=== PATIENT | male | born 1945 | race Caucasian/White ===

== ENCOUNTER 2020-04-09 13:26 | Outpatient (RCR) | payer OTHER, SELFPAY ==
[2020-04-16 12:36] LABS: Glucose, Whole Blood 291 mg/dL (60-115)
[2020-04-16 16:12] LABS: Glucose, Whole Blood 118 mg/dL (60-115)
[2020-04-16 20:29] LABS: Glucose, Whole Blood 225 mg/dL (60-115)
[2020-04-17 07:01] LABS: Glucose, Whole Blood 245 mg/dL (60-115)
[2020-04-17 11:17] LABS: Glucose, Whole Blood 234 mg/dL (60-115)
[2020-04-17 16:08] LABS: Glucose, Whole Blood 218 mg/dL (60-115)
[2020-04-17 20:22] LABS: Glucose, Whole Blood 187 mg/dL (60-115)
[2020-04-18 07:41] LABS: Glucose, Whole Blood 149 mg/dL (60-115)
[2020-04-18 11:34] LABS: Glucose, Whole Blood 207 mg/dL (60-115)
[2020-04-18 17:11] LABS: Glucose, Whole Blood 191 mg/dL (60-115)
[2020-04-18 20:29] LABS: Glucose, Whole Blood 207 mg/dL (60-115)
[2020-04-19 07:36] LABS: Glucose, Whole Blood 48 mg/dL (60-115)
[2020-04-19 11:11] LABS: Glucose, Whole Blood 340 mg/dL (60-115)
[2020-04-19 16:16] LABS: Glucose, Whole Blood 208 mg/dL (60-115)
[2020-04-20 07:19] LABS: Glucose, Whole Blood 152 mg/dL (60-115)
[2020-04-20 11:25] LABS: Glucose, Whole Blood 309 mg/dL (60-115)
[2020-04-20 16:06] LABS: Glucose, Whole Blood 230 mg/dL (60-115)
[2020-04-20 20:10] LABS: Glucose, Whole Blood 238 mg/dL (60-115)
[2020-04-21 07:23] LABS: Glucose, Whole Blood 205 mg/dL (60-115)
[2020-04-21 11:20] LABS: Glucose, Whole Blood 308 mg/dL (60-115)
[2020-04-21 16:08] LABS: Glucose, Whole Blood 316 mg/dL (60-115)
[2020-04-22 07:28] LABS: Glucose, Whole Blood 65 mg/dL (60-115)
[2020-04-22 11:17] LABS: Glucose, Whole Blood 249 mg/dL (60-115)
[2020-04-22 16:07] LABS: Glucose, Whole Blood 202 mg/dL (60-115)
[2020-04-22 20:18] LABS: Glucose, Whole Blood 152 mg/dL (60-115)
[2020-04-23 07:17] LABS: Glucose, Whole Blood 152 mg/dL (60-115)
[2020-04-23 11:23] LABS: Glucose, Whole Blood 295 mg/dL (60-115)
[2020-04-23 16:23] LABS: Glucose, Whole Blood 218 mg/dL (60-115)
[2020-04-23 19:51] LABS: Glucose, Whole Blood 227 mg/dL (60-115)
[2020-04-24 07:43] LABS: Glucose, Whole Blood 107 mg/dL (60-115)
[2020-04-24 11:30] LABS: Glucose, Whole Blood 285 mg/dL (60-115)
[2020-04-24 16:11] LABS: Glucose, Whole Blood 258 mg/dL (60-115)
[2020-04-25 07:20] LABS: Glucose, Whole Blood 171 mg/dL (60-115)
[2020-04-25 11:18] LABS: Glucose, Whole Blood 291 mg/dL (60-115)
[2020-04-25 16:24] LABS: Glucose, Whole Blood 155 mg/dL (60-115)
[2020-04-26 07:25] LABS: Glucose, Whole Blood 187 mg/dL (60-115)
[2020-04-26 11:12] LABS: Glucose, Whole Blood 187 mg/dL (60-115)
[2020-04-26 15:57] LABS: Glucose, Whole Blood 209 mg/dL (60-115)
[2020-04-26 21:12] LABS: Glucose, Whole Blood 144 mg/dL (60-115)
[2020-04-27 07:21] LABS: Glucose, Whole Blood 106 mg/dL (60-115)
[2020-04-27 11:14] LABS: Glucose, Whole Blood 288 mg/dL (60-115)
[2020-04-27 15:57] LABS: Glucose, Whole Blood 158 mg/dL (60-115)
[2020-04-27 20:04] LABS: Glucose, Whole Blood 195 mg/dL (60-115)
[2020-04-28 07:26] LABS: Glucose, Whole Blood 157 mg/dL (60-115)
[2020-04-28 11:08] LABS: Glucose, Whole Blood 336 mg/dL (60-115)
[2020-04-28 16:15] LABS: Glucose, Whole Blood 77 mg/dL (60-115)
[2020-04-28 20:42] LABS: Glucose, Whole Blood 145 mg/dL (60-115)
[2020-04-29 07:23] LABS: Glucose, Whole Blood 121 mg/dL (60-115)
[2020-04-29 11:17] LABS: Glucose, Whole Blood 273 mg/dL (60-115)
[2020-04-29 16:15] LABS: Glucose, Whole Blood 105 mg/dL (60-115)
[2020-04-30 07:25] LABS: Glucose, Whole Blood 140 mg/dL (60-115)
[2020-04-30 11:14] LABS: Glucose, Whole Blood 274 mg/dL (60-115)
[2020-04-30 16:04] LABS: Glucose, Whole Blood 128 mg/dL (60-115)
[2020-04-30 20:34] LABS: Glucose, Whole Blood 269 mg/dL (60-115)
[2020-05-01 07:21] LABS: Glucose, Whole Blood 174 mg/dL (60-115)
[2020-05-01 11:00] LABS: Glucose, Whole Blood 298 mg/dL (60-115)
[2020-05-01 16:11] LABS: Glucose, Whole Blood 217 mg/dL (60-115)
[2020-05-01 20:30] LABS: Glucose, Whole Blood 183 mg/dL (60-115)
[2020-05-02 07:26] LABS: Glucose, Whole Blood 75 mg/dL (60-115)
[2020-05-02 11:18] LABS: Glucose, Whole Blood 243 mg/dL (60-115)
[2020-05-02 16:17] LABS: Glucose, Whole Blood 169 mg/dL (60-115)
[2020-05-02 20:32] LABS: Glucose, Whole Blood 257 mg/dL (60-115)
[2020-05-03 07:31] LABS: Glucose, Whole Blood 171 mg/dL (60-115)
[2020-05-03 11:15] LABS: Glucose, Whole Blood 358 mg/dL (60-115)
[2020-05-03 16:11] LABS: Glucose, Whole Blood 256 mg/dL (60-115)
[2020-05-03 20:21] LABS: Glucose, Whole Blood 292 mg/dL (60-115)
[2020-05-04 07:19] LABS: Glucose, Whole Blood 185 mg/dL (60-115)
[2020-05-04 11:02] LABS: Glucose, Whole Blood 193 mg/dL (60-115)
[2020-05-04 16:16] LABS: Glucose, Whole Blood 244 mg/dL (60-115)
[2020-05-04 20:32] LABS: Glucose, Whole Blood 180 mg/dL (60-115)
[2020-05-05 07:20] LABS: Glucose, Whole Blood 86 mg/dL (60-115)
[2020-05-05 11:12] LABS: Glucose, Whole Blood 256 mg/dL (60-115)
[2020-05-05 16:28] LABS: Glucose, Whole Blood 217 mg/dL (60-115)
[2020-05-06 07:27] LABS: Glucose, Whole Blood 67 mg/dL (60-115)
[2020-05-06 11:07] LABS: Glucose, Whole Blood 277 mg/dL (60-115)
[2020-05-06 16:07] LABS: Glucose, Whole Blood 237 mg/dL (60-115)
[2020-05-06 20:14] LABS: Glucose, Whole Blood 248 mg/dL (60-115)
[2020-05-07 07:10] LABS: Glucose, Whole Blood 100 mg/dL (60-115)
[2020-05-07 11:39] LABS: Glucose, Whole Blood 330 mg/dL (60-115)
[2020-05-07 15:26] LABS: Glucose, Whole Blood 189 mg/dL (60-115)
[2020-05-07 17:12] LABS: Glucose, Whole Blood 220 mg/dL (60-115)
[2020-05-07 20:35] LABS: Glucose, Whole Blood 187 mg/dL (60-115)
[2020-05-08 07:29] LABS: Glucose, Whole Blood 99 mg/dL (60-115)
[2020-05-08 11:34] LABS: Glucose, Whole Blood 300 mg/dL (60-115)
[2020-05-08 15:59] LABS: Glucose, Whole Blood 216 mg/dL (60-115)
[2020-05-08 20:54] LABS: Glucose, Whole Blood 188 mg/dL (60-115)
[2020-05-09 02:25] LABS: Glucose, Whole Blood 111 mg/dL (60-115)
[2020-05-09 07:09] LABS: Glucose, Whole Blood 131 mg/dL (60-115)
[2020-05-09 11:14] LABS: Glucose, Whole Blood 316 mg/dL (60-115)
[2020-05-09 16:06] LABS: Glucose, Whole Blood 225 mg/dL (60-115)
[2020-05-10 00:32] LABS: Glucose, Whole Blood 159 mg/dL (60-115)
[2020-05-10 13:50] LABS: Glucose, Whole Blood 227 mg/dL (60-115)
[2020-05-10 16:18] LABS: Glucose, Whole Blood 222 mg/dL (60-115)
[2020-05-11 00:50] LABS: Glucose, Whole Blood 80 mg/dL (60-115)
[2020-05-11 07:03] LABS: Glucose, Whole Blood 121 mg/dL (60-115)
[2020-05-11 11:33] LABS: Glucose, Whole Blood 268 mg/dL (60-115)
[2020-05-11 15:48] LABS: Glucose, Whole Blood 195 mg/dL (60-115)
[2020-05-11 20:50] LABS: Glucose, Whole Blood 172 mg/dL (60-115)
[2020-05-12 07:32] LABS: Glucose, Whole Blood 132 mg/dL (60-115)
[2020-05-12 11:18] LABS: Glucose, Whole Blood 251 mg/dL (60-115)
[2020-05-12 16:26] LABS: Glucose, Whole Blood 207 mg/dL (60-115)
[2020-05-12 20:23] LABS: Glucose, Whole Blood 155 mg/dL (60-115)
[2020-05-13 07:28] LABS: Glucose, Whole Blood 71 mg/dL (60-115)
[2020-05-13 11:12] LABS: Glucose, Whole Blood 255 mg/dL (60-115)
[2020-05-13 16:04] LABS: Glucose, Whole Blood 137 mg/dL (60-115)
[2020-05-13 20:05] LABS: Glucose, Whole Blood 195 mg/dL (60-115)
[2020-05-14 07:14] LABS: Glucose, Whole Blood 80 mg/dL (60-115)
[2020-05-14 11:19] LABS: Glucose, Whole Blood 194 mg/dL (60-115)
[2020-05-14 15:54] LABS: Glucose, Whole Blood 269 mg/dL (60-115)
[2020-05-15 07:26] LABS: Glucose, Whole Blood 165 mg/dL (60-115)
[2020-05-15 10:54] LABS: Glucose, Whole Blood 291 mg/dL (60-115)
[2020-05-15 16:17] LABS: Glucose, Whole Blood 230 mg/dL (60-115)
[2020-05-15 20:36] LABS: Glucose, Whole Blood 193 mg/dL (60-115)
[2020-05-16 00:20] LABS: Glucose, Whole Blood 128 mg/dL (60-115)
[2020-05-16 07:53] LABS: Glucose, Whole Blood 195 mg/dL (60-115)
[2020-05-16 11:18] LABS: Glucose, Whole Blood 255 mg/dL (60-115)
[2020-05-16 16:15] LABS: Glucose, Whole Blood 124 mg/dL (60-115)
[2020-05-16 21:19] LABS: Glucose, Whole Blood 277 mg/dL (60-115)
[2020-05-17 07:38] LABS: Glucose, Whole Blood 79 mg/dL (60-115)
[2020-05-17 11:09] LABS: Glucose, Whole Blood 273 mg/dL (60-115)
[2020-05-17 16:19] LABS: Glucose, Whole Blood 103 mg/dL (60-115)
[2020-05-18 07:30] LABS: Glucose, Whole Blood 82 mg/dL (60-115)
[2020-05-18 09:36] LABS: Glucose, Whole Blood 193 mg/dL (60-115)
[2020-05-18 11:16] LABS: Glucose, Whole Blood 237 mg/dL (60-115)
[2020-05-18 16:14] LABS: Glucose, Whole Blood 230 mg/dL (60-115)
[2020-05-19 08:03] LABS: Glucose, Whole Blood 128 mg/dL (60-115)
[2020-05-19 11:23] LABS: Glucose, Whole Blood 241 mg/dL (60-115)
[2020-05-19 16:03] LABS: Glucose, Whole Blood 181 mg/dL (60-115)
[2020-05-20 08:05] LABS: Glucose, Whole Blood 48 mg/dL (60-115)
[2020-05-20 11:15] LABS: Glucose, Whole Blood 254 mg/dL (60-115)
[2020-05-20 16:17] LABS: Glucose, Whole Blood 228 mg/dL (60-115)
[2020-05-20 20:54] LABS: Glucose, Whole Blood 205 mg/dL (60-115)
[2020-05-21 08:52] LABS: Glucose, Whole Blood 60 mg/dL (60-115)
[2020-05-21 11:17] LABS: Glucose, Whole Blood 283 mg/dL (60-115)
[2020-05-21 15:37] LABS: Glucose, Whole Blood 252 mg/dL (60-115)
[2020-05-21 19:54] LABS: Glucose, Whole Blood 150 mg/dL (60-115)
[2020-05-22 07:29] LABS: Glucose, Whole Blood 72 mg/dL (60-115)
[2020-05-22 11:37] LABS: Glucose, Whole Blood 356 mg/dL (60-115)
[2020-05-22 16:06] LABS: Glucose, Whole Blood 226 mg/dL (60-115)
[2020-05-23 08:11] LABS: Glucose, Whole Blood 95 mg/dL (60-115)
[2020-05-23 11:21] LABS: Glucose, Whole Blood 277 mg/dL (60-115)
[2020-05-23 16:24] LABS: Glucose, Whole Blood 179 mg/dL (60-115)
[2020-05-24 00:21] LABS: Glucose, Whole Blood 127 mg/dL (60-115)
[2020-05-24 07:25] LABS: Glucose, Whole Blood 76 mg/dL (60-115)
[2020-05-24 11:30] LABS: Glucose, Whole Blood 172 mg/dL (60-115)
[2020-05-24 16:05] LABS: Glucose, Whole Blood 258 mg/dL (60-115)
[2020-05-25 07:25] LABS: Glucose, Whole Blood 144 mg/dL (60-115)
[2020-05-25 11:32] LABS: Glucose, Whole Blood 232 mg/dL (60-115)
[2020-05-25 16:19] LABS: Glucose, Whole Blood 93 mg/dL (60-115)
[2020-05-25 23:11] LABS: Glucose, Whole Blood 224 mg/dL (60-115)
[2020-05-26 08:11] LABS: Glucose, Whole Blood 64 mg/dL (60-115)
[2020-05-26 11:17] LABS: Glucose, Whole Blood 244 mg/dL (60-115)
[2020-05-26 16:21] LABS: Glucose, Whole Blood 158 mg/dL (60-115)
[2020-05-26 21:00] LABS: Glucose, Whole Blood 242 mg/dL (60-115)
[2020-05-27 08:13] LABS: Glucose, Whole Blood 85 mg/dL (60-115)
[2020-05-27 11:27] LABS: Glucose, Whole Blood 241 mg/dL (60-115)
[2020-05-27 16:16] LABS: Glucose, Whole Blood 122 mg/dL (60-115)
[2020-05-28 00:05] LABS: Glucose, Whole Blood 164 mg/dL (60-115)
[2020-05-28 07:16] LABS: Glucose, Whole Blood 93 mg/dL (60-115)
[2020-05-28 11:43] LABS: Glucose, Whole Blood 270 mg/dL (60-115)
[2020-05-28 18:57] LABS: Glucose, Whole Blood 243 mg/dL (60-115)
[2020-05-29 07:57] LABS: Glucose, Whole Blood 118 mg/dL (60-115)
[2020-05-29 11:11] LABS: Glucose, Whole Blood 257 mg/dL (60-115)
[2020-05-29 16:41] LABS: Glucose, Whole Blood 172 mg/dL (60-115)
[2020-05-30 07:44] LABS: Glucose, Whole Blood 112 mg/dL (60-115)
[2020-05-30 11:27] LABS: Glucose, Whole Blood 291 mg/dL (60-115)
[2020-05-30 16:43] LABS: Glucose, Whole Blood 128 mg/dL (60-115)
[2020-05-31 07:08] LABS: Glucose, Whole Blood 90 mg/dL (60-115)
[2020-05-31 11:32] LABS: Glucose, Whole Blood 250 mg/dL (60-115)
[2020-05-31 16:08] LABS: Glucose, Whole Blood 82 mg/dL (60-115)
[2020-06-01 08:37] LABS: Glucose, Whole Blood 139 mg/dL (60-115)
[2020-06-01 11:16] LABS: Glucose, Whole Blood 271 mg/dL (60-115)
[2020-06-01 17:30] LABS: Glucose, Whole Blood 167 mg/dL (60-115)
[2020-06-02 07:36] LABS: Glucose, Whole Blood 91 mg/dL (60-115)
[2020-06-02 11:22] LABS: Glucose, Whole Blood 264 mg/dL (60-115)
[2020-06-02 16:02] LABS: Glucose, Whole Blood 191 mg/dL (60-115)
[2020-06-02 20:11] LABS: Glucose, Whole Blood 194 mg/dL (60-115)
[2020-06-02 23:46] LABS: Glucose, Whole Blood 131 mg/dL (60-115)
[2020-06-03 07:04] LABS: Glucose, Whole Blood 58 mg/dL (60-115)
[2020-06-03 11:29] LABS: Glucose, Whole Blood 328 mg/dL (60-115)
[2020-06-03 16:11] LABS: Glucose, Whole Blood 172 mg/dL (60-115)
[2020-06-04 07:42] LABS: Glucose, Whole Blood 93 mg/dL (60-115)
[2020-06-04 11:27] LABS: Glucose, Whole Blood 321 mg/dL (60-115)
[2020-06-04 14:50] LABS: Glucose, Whole Blood 111 mg/dL (60-115)
--- NOTE | 2020-06-04 15:44 | CT_ITS ---
EXAMINATION: CT HEAD WITHOUT CONTRAST CLINICAL INFORMATION: Altered mental status COMPARISON: 01/25/2020 TECHNIQUE: Contiguous axial imaging was performed from the skull base to vertex without intravenous contrast. This CT examination was performed using dose optimization techniques as appropriate, variously including the following: * Automated exposure control * Adjustment of mA and/or kV according to patient size (this includes techniques or standardized protocols for targeted exams where dose is matched to indication/reason for exam; i.e. extremities or head) Use of iterative reconstruction technique DLP: 832 mGy-cm. FINDINGS: There is no evidence of acute intracranial hemorrhage or territorial infarction. No abnormal mass effect or midline shift is seen. Butcher to white matter differentiation is well preserved. No extra-axial fluid collections are identified. No hydrocephalus. Proportional prominence of the ventricles and sulcal spaces is consistent with moderate volume loss. Patchy periventricular and deep white matter hypoattenuation is consistent with mild small vessel ischemic changes. The osseous structures and soft tissues are normal. The mastoid air cells and visualized portions of the paranasal sinuses are well aerated. CT/CT head/brain wo con IMPRESSION: No acute intracranial pathology. Volume loss with small vessel ischemic changes.
[2020-06-04 16:22] LABS: Glucose, Whole Blood 143 mg/dL (60-115)
[2020-06-04 16:44] LABS: Appearance Urine CLEAR; Color Urine YELLOW; Glucose Urine UA 100 MG/DL (NEG); Leukocyte Esterase Urine NEG (NEG); Nitrite Urine NEG (NEG); PH 7.5 (5.0-8.0); Specific Gravity - Urine 1.015 (1.005-1.025); Urine Blood NEG (NEG); Urine Ketones NEG (NEG); Urine Protein NEG (NEG-TRACE)
[2020-06-04 16:50] LABS: Hematocrit 33.3 % (42-52); Hemoglobin 10.5 g/dl (14.0-18.0); Mean Corpuscular HGB Conc 31.5 g/dl (31.0-36.0); Mean Corpuscular Hemoglobin 25.1 pg (27.0-33.0); Mean Corpuscular Volume 79.5 fL (80-98); Mean Platelet Volume 8.2 fL (9.4-12.4); Platelet Count 316 X10*3/uL (160-400); Red Blood Count 4.19 X10*6/uL (4.60-5.80); Red Cell Distribution Width 13.8 % (11.0-16.0); White Blood Count 14.1 X10*3/uL (4.8-10.8)
[2020-06-04 16:51] LABS: RBC Urine 0 /HPF (0); WBC Urine 0 /HPF (0-4)
[2020-06-04 17:30] LABS: Anion Gap 17 (12-20); Blood Urea Nitrogen 18 mg/dL (9-16); Calcium 8.7 mg/dL (8.4-10.2); Carbon Dioxide 29 mmol/L (22-29); Chloride 83 mmol/L (96-108); Estimated Glomerular Filt Rate > 60; Glucose Random 149 mg/dL (60-115); Potassium 5.6 mmol/l (3.3-5.1); Sodium 123 mmol/L (135-145)
[2020-06-04 21:08] LABS: Glucose, Whole Blood 352 mg/dL (60-115)
[2020-06-05 07:12] LABS: Glucose, Whole Blood 137 mg/dL (60-115)
[2020-06-05 11:24] LABS: Glucose, Whole Blood 274 mg/dL (60-115)
[2020-06-05 15:56] LABS: Glucose, Whole Blood 265 mg/dL (60-115)
[2020-06-05 21:00] LABS: Glucose, Whole Blood 218 mg/dL (60-115)
[2020-06-06 07:43] LABS: Glucose, Whole Blood 95 mg/dL (60-115)
[2020-06-06 11:13] LABS: Glucose, Whole Blood 287 mg/dL (60-115)
[2020-06-06 16:01] LABS: Glucose, Whole Blood 161 mg/dL (60-115)
[2020-06-06 20:53] LABS: Glucose, Whole Blood 285 mg/dL (60-115)
[2020-06-07 07:00] LABS: Glucose, Whole Blood 118 mg/dL (60-115)
[2020-06-07 11:30] LABS: Glucose, Whole Blood 294 mg/dL (60-115)
[2020-06-07 16:02] LABS: Glucose, Whole Blood 136 mg/dL (60-115)
[2020-06-08 07:32] LABS: Glucose, Whole Blood 133 mg/dL (60-115)
[2020-06-08 11:24] LABS: Glucose, Whole Blood 235 mg/dL (60-115)
[2020-06-08 16:22] LABS: Glucose, Whole Blood 238 mg/dL (60-115)
[2020-06-09 07:37] LABS: Glucose, Whole Blood 104 mg/dL (60-115)
[2020-06-09 11:27] LABS: Glucose, Whole Blood 171 mg/dL (60-115)
[2020-06-09 16:08] LABS: Glucose, Whole Blood 331 mg/dL (60-115)
[2020-06-10 07:22] LABS: Glucose, Whole Blood 111 mg/dL (60-115)
[2020-06-10 07:30] LABS: Glucose, Whole Blood 119 mg/dL (60-115)
[2020-06-10 11:19] LABS: Glucose, Whole Blood 116 mg/dL (60-115)
[2020-06-10 16:05] LABS: Glucose, Whole Blood 268 mg/dL (60-115)
[2020-06-11 07:07] LABS: Glucose, Whole Blood 120 mg/dL (60-115)
[2020-06-11 07:21] LABS: Glucose, Whole Blood 117 mg/dL (60-115)
[2020-06-11 10:43] LABS: Glucose, Whole Blood 76 mg/dL (60-115)
[2020-06-15 16:33] LABS: Glucose, Whole Blood 85 mg/dL (60-115)
[2020-06-15 21:26] LABS: Glucose, Whole Blood 333 mg/dL (60-115)
[2020-06-16 07:16] LABS: Glucose, Whole Blood 272 mg/dL (60-115)
[2020-06-16 11:03] LABS: Glucose, Whole Blood 204 mg/dL (60-115)
[2020-06-16 11:56] LABS: Influenza A PCR NEGATIVE (Negative); Influenza B PCR NEGATIVE (Negative); Resp Syncy Virus RNA Qual PCR NEGATIVE (Negative); SARS COV2 PCR INHOUSE NEGATIVE (Negative)
[2020-06-16 16:01] LABS: Glucose, Whole Blood 250 mg/dL (60-115)
[2020-06-16 20:39] LABS: Glucose, Whole Blood 251 mg/dL (60-115)
[2020-06-17 07:13] LABS: Glucose, Whole Blood 103 mg/dL (60-115)
[2020-06-17 11:11] LABS: Glucose, Whole Blood 114 mg/dL (60-115)
[2020-06-17 16:15] LABS: Glucose, Whole Blood 152 mg/dL (60-115)
[2020-06-18 07:16] LABS: Glucose, Whole Blood 121 mg/dL (60-115)
[2020-06-18 11:08] LABS: Glucose, Whole Blood 283 mg/dL (60-115)
[2020-06-18 14:57] LABS: Influenza A PCR NEGATIVE (Negative); Influenza B PCR NEGATIVE (Negative); Resp Syncy Virus RNA Qual PCR NEGATIVE (Negative); SARS COV2 PCR INHOUSE NEGATIVE (Negative)
[2020-06-18 16:20] LABS: Glucose, Whole Blood 116 mg/dL (60-115)
[2020-06-19 07:25] LABS: Glucose, Whole Blood 110 mg/dL (60-115)
[2020-06-19 16:07] LABS: Glucose, Whole Blood 287 mg/dL (60-115)
[2020-06-19 21:24] LABS: Glucose, Whole Blood 159 mg/dL (60-115)
[2020-06-20 07:11] LABS: Glucose, Whole Blood 66 mg/dL (60-115)
[2020-06-20 11:25] LABS: Glucose, Whole Blood 228 mg/dL (60-115)
[2020-06-20 16:14] LABS: Glucose, Whole Blood 154 mg/dL (60-115)
[2020-06-20 21:29] LABS: Glucose, Whole Blood 151 mg/dL (60-115)
[2020-06-21 07:31] LABS: Glucose, Whole Blood 82 mg/dL (60-115)
[2020-06-21 11:07] LABS: Glucose, Whole Blood 304 mg/dL (60-115)
[2020-06-21 16:08] LABS: Glucose, Whole Blood 75 mg/dL (60-115)
[2020-06-22 07:32] LABS: Glucose, Whole Blood 49 mg/dL (60-115)
[2020-06-22 08:06] LABS: Glucose, Whole Blood 87 mg/dL (60-115)
[2020-06-22 11:24] LABS: Glucose, Whole Blood 218 mg/dL (60-115)
[2020-06-22 16:15] LABS: Glucose, Whole Blood 225 mg/dL (60-115)
[2020-06-22 21:10] LABS: Glucose, Whole Blood 175 mg/dL (60-115)
[2020-06-23 07:24] LABS: Glucose, Whole Blood 74 mg/dL (60-115)
[2020-06-23 11:06] LABS: Glucose, Whole Blood 249 mg/dL (60-115)
[2020-06-23 16:08] LABS: Glucose, Whole Blood 202 mg/dL (60-115)
[2020-06-24 07:11] LABS: Glucose, Whole Blood 108 mg/dL (60-115)
[2020-06-24 11:07] LABS: Glucose, Whole Blood 251 mg/dL (60-115)
[2020-06-24 12:59] LABS: COVID-19 Test Negative (Negative)
[2020-06-24 16:21] LABS: Glucose, Whole Blood 280 mg/dL (60-115)
[2020-06-25 07:39] LABS: Glucose, Whole Blood 322 mg/dL (60-115)
[2020-06-25 11:08] LABS: Glucose, Whole Blood 79 mg/dL (60-115)
[2020-06-25 16:24] LABS: Glucose, Whole Blood 293 mg/dL (60-115)
[2020-06-26 07:14] LABS: Glucose, Whole Blood 102 mg/dL (60-115)
[2020-06-26 11:04] LABS: Glucose, Whole Blood 312 mg/dL (60-115)
[2020-06-26 16:12] LABS: Glucose, Whole Blood 227 mg/dL (60-115)
[2020-06-26 20:52] LABS: Glucose, Whole Blood 267 mg/dL (60-115)
[2020-06-27 07:24] LABS: Glucose, Whole Blood 255 mg/dL (60-115)
[2020-06-27 11:14] LABS: Glucose, Whole Blood 285 mg/dL (60-115)
[2020-06-27 16:05] LABS: Glucose, Whole Blood 200 mg/dL (60-115)
[2020-06-27 20:53] LABS: Glucose, Whole Blood 260 mg/dL (60-115)
[2020-06-28 07:05] LABS: Glucose, Whole Blood 113 mg/dL (60-115)
[2020-06-28 11:08] LABS: Glucose, Whole Blood 346 mg/dL (60-115)
[2020-06-28 16:19] LABS: Glucose, Whole Blood 264 mg/dL (60-115)
[2020-06-29 07:16] LABS: Glucose, Whole Blood 163 mg/dL (60-115)
[2020-06-29 11:12] LABS: Glucose, Whole Blood 294 mg/dL (60-115)
[2020-06-29 16:15] LABS: Glucose, Whole Blood 342 mg/dL (60-115)
[2020-06-30 07:05] LABS: Glucose, Whole Blood 87 mg/dL (60-115)
[2020-06-30 11:12] LABS: Glucose, Whole Blood 214 mg/dL (60-115)
[2020-06-30 15:52] LABS: Glucose, Whole Blood 273 mg/dL (60-115)
[2020-06-30 21:22] LABS: Glucose, Whole Blood 145 mg/dL (60-115)
[2020-07-01 07:17] LABS: Glucose, Whole Blood 122 mg/dL (60-115)
[2020-07-01 11:14] LABS: Glucose, Whole Blood 359 mg/dL (60-115)
[2020-07-01 16:04] LABS: Glucose, Whole Blood 184 mg/dL (60-115)
[2020-07-01 20:06] LABS: Glucose, Whole Blood 299 mg/dL (60-115)
[2020-07-02 06:23] LABS: Glucose, Whole Blood 164 mg/dL (60-115)
[2020-07-02 07:05] LABS: Glucose, Whole Blood 177 mg/dL (60-115)
[2020-07-02 11:13] LABS: Glucose, Whole Blood 353 mg/dL (60-115)
[2020-07-02 16:19] LABS: Glucose, Whole Blood 243 mg/dL (60-115)
[2020-07-03 07:47] LABS: Glucose, Whole Blood 124 mg/dL (60-115)
[2020-07-03 11:17] LABS: Glucose, Whole Blood 312 mg/dL (60-115)
[2020-07-03 16:19] LABS: Glucose, Whole Blood 284 mg/dL (60-115)
[2020-07-04 07:17] LABS: Glucose, Whole Blood 260 mg/dL (60-115)
[2020-07-04 11:21] LABS: Glucose, Whole Blood 201 mg/dL (60-115)
[2020-07-04 15:47] LABS: Glucose, Whole Blood 205 mg/dL (60-115)
[2020-07-05 07:19] LABS: Glucose, Whole Blood 147 mg/dL (60-115)
[2020-07-05 11:06] LABS: Glucose, Whole Blood 321 mg/dL (60-115)
[2020-07-05 16:10] LABS: Glucose, Whole Blood 173 mg/dL (60-115)
[2020-07-05 21:38] LABS: Glucose, Whole Blood 236 mg/dL (60-115)
[2020-07-06 07:20] LABS: Glucose, Whole Blood 133 mg/dL (60-115)
[2020-07-06 11:24] LABS: Glucose, Whole Blood 288 mg/dL (60-115)
[2020-07-06 16:06] LABS: Glucose, Whole Blood 204 mg/dL (60-115)
[2020-07-06 21:05] LABS: Glucose, Whole Blood 201 mg/dL (60-115)
[2020-07-07 07:14] LABS: Glucose, Whole Blood 69 mg/dL (60-115)
[2020-07-07 11:07] LABS: Glucose, Whole Blood 279 mg/dL (60-115)
[2020-07-07 16:14] LABS: Glucose, Whole Blood 274 mg/dL (60-115)
[2020-07-07 21:05] LABS: Glucose, Whole Blood 178 mg/dL (60-115)
[2020-07-08 07:12] LABS: Glucose, Whole Blood 283 mg/dL (60-115)
[2020-07-08 11:07] LABS: Glucose, Whole Blood 180 mg/dL (60-115)
[2020-07-08 16:08] LABS: Glucose, Whole Blood 280 mg/dL (60-115)
[2020-07-09 07:12] LABS: Glucose, Whole Blood 94 mg/dL (60-115)
[2020-07-09 11:17] LABS: Glucose, Whole Blood 281 mg/dL (60-115)
[2020-07-09 15:56] LABS: Glucose, Whole Blood 229 mg/dL (60-115)
[2020-07-10 08:00] LABS: Glucose, Whole Blood 116 mg/dL (60-115)
[2020-07-10 11:38] LABS: Glucose, Whole Blood 303 mg/dL (60-115)
[2020-07-10 16:09] LABS: Glucose, Whole Blood 156 mg/dL (60-115)
[2020-07-10 21:19] LABS: Glucose, Whole Blood 258 mg/dL (60-115)
[2020-07-11 07:42] LABS: Glucose, Whole Blood 121 mg/dL (60-115)
[2020-07-11 11:15] LABS: Glucose, Whole Blood 372 mg/dL (60-115)
[2020-07-11 16:24] LABS: Glucose, Whole Blood 132 mg/dL (60-115)
[2020-07-12 07:48] LABS: Glucose, Whole Blood 164 mg/dL (60-115)
[2020-07-12 11:28] LABS: Glucose, Whole Blood 252 mg/dL (60-115)
[2020-07-12 16:27] LABS: Glucose, Whole Blood 316 mg/dL (60-115)
[2020-07-13 07:29] LABS: Glucose, Whole Blood 227 mg/dL (60-115)
[2020-07-13 11:14] LABS: Glucose, Whole Blood 139 mg/dL (60-115)
[2020-07-13 16:24] LABS: Glucose, Whole Blood 433 mg/dL (60-115)
[2020-07-13 20:03] LABS: Glucose, Whole Blood 232 mg/dL (60-115)
[2020-07-14 07:22] LABS: Glucose, Whole Blood 130 mg/dL (60-115)
[2020-07-14 11:00] LABS: Glucose, Whole Blood 200 mg/dL (60-115)
[2020-07-14 16:22] LABS: Glucose, Whole Blood 252 mg/dL (60-115)
[2020-07-15 07:19] LABS: Glucose, Whole Blood 148 mg/dL (60-115)
[2020-07-15 11:16] LABS: Glucose, Whole Blood 198 mg/dL (60-115)
[2020-07-15 15:20] LABS: Glucose Urine UA 250 MG/DL (NEG); Leukocyte Esterase Urine NEG (NEG); Nitrite Urine NEG (NEG); Specific Gravity - Urine 1.015 (1.005-1.025); Urine Blood NEG (NEG); Urine Ketones NEG (NEG); Urine Protein NEG (NEG-TRACE)
[2020-07-15 15:23] LABS: Appearance Urine CLEAR; Color Urine YELLOW
[2020-07-15 15:38] LABS: RBC Urine 0 /HPF (0); Squamous Epithelial Cell Urine TRACE /LPF; WBC Urine 0 /HPF (0-4)
[2020-07-15 16:12] LABS: Glucose, Whole Blood 272 mg/dL (60-115)
[2020-07-16 07:14] LABS: Glucose, Whole Blood 124 mg/dL (60-115)
[2020-07-16 11:17] LABS: Glucose, Whole Blood 288 mg/dL (60-115)
[2020-07-16 12:09] LABS: COVID-19 Test Negative (Negative); IDNOW Serial# 9DD0AD1C
[2020-07-16 16:26] LABS: Glucose, Whole Blood 109 mg/dL (60-115)
[2020-07-16 21:21] LABS: Glucose, Whole Blood 161 mg/dL (60-115)
[2020-07-17 07:35] LABS: Glucose, Whole Blood 246 mg/dL (60-115)
[2020-07-17 11:13] LABS: Glucose, Whole Blood 178 mg/dL (60-115)
[2020-07-17 16:10] LABS: Glucose, Whole Blood 320 mg/dL (60-115)
[2020-07-17 16:24] LABS: Anion Gap 16 (12-20); Blood Urea Nitrogen 19 mg/dL (9-16); Calcium 8.7 mg/dL (8.4-10.2); Carbon Dioxide 29 mmol/L (22-29); Chloride 88 mmol/L (96-108); Estimated Glomerular Filt Rate 53; Glucose Random 337 mg/dL (60-115); Potassium 6.5 mmol/l (3.3-5.1); Sodium 126 mmol/L (135-145)
[2020-07-20 11:43] LABS: Glucose, Whole Blood 272 mg/dL (60-115)
[2020-07-20 12:39] LABS: SARS-COV-2 PCR UMBRL Not Detected
[2020-07-21 07:20] LABS: Glucose, Whole Blood 126 mg/dL (60-115)
[2020-07-21 11:27] LABS: Glucose, Whole Blood 179 mg/dL (60-115)
[2020-07-21 16:00] LABS: Glucose, Whole Blood 375 mg/dL (60-115)
[2020-07-22 07:05] LABS: Anion Gap 16 (12-20); Blood Urea Nitrogen 15 mg/dL (9-16); Calcium 8.3 mg/dL (8.4-10.2); Carbon Dioxide 27 mmol/L (22-29); Chloride 92 mmol/L (96-108); Estimated Glomerular Filt Rate > 60; Glucose Random 162 mg/dL (60-115); Potassium 4.7 mmol/l (3.3-5.1); Sodium 130 mmol/L (135-145)
[2020-07-22 07:14] LABS: Glucose, Whole Blood 166 mg/dL (60-115)
[2020-07-22 09:36] LABS: SARS-COV-2 PCR UMBRL Not Detected
[2020-07-22 11:25] LABS: Glucose, Whole Blood 370 mg/dL (60-115)
[2020-07-22 16:20] LABS: Glucose, Whole Blood 222 mg/dL (60-115)
[2020-07-22 17:46] LABS: Osmolality Urine 408 mosm/kg (373-1093)
[2020-07-22 20:53] LABS: Glucose, Whole Blood 316 mg/dL (60-115)
[2020-07-23 07:19] LABS: Glucose, Whole Blood 188 mg/dL (60-115)
[2020-07-23 11:30] LABS: Glucose, Whole Blood 126 mg/dL (60-115)
[2020-07-23 16:04] LABS: Glucose, Whole Blood 368 mg/dL (60-115)
[2020-07-23 20:44] LABS: Glucose, Whole Blood 138 mg/dL (60-115)
[2020-07-24 07:22] LABS: Glucose, Whole Blood 177 mg/dL (60-115)
[2020-07-24 11:07] LABS: Glucose, Whole Blood 341 mg/dL (60-115)
[2020-07-25 00:15] LABS: Glucose, Whole Blood 111 mg/dL (60-115)
[2020-07-25 06:58] LABS: Glucose, Whole Blood 125 mg/dL (60-115)
[2020-07-25 11:17] LABS: Glucose, Whole Blood 287 mg/dL (60-115)
[2020-07-25 16:00] LABS: Glucose, Whole Blood 178 mg/dL (60-115)
[2020-07-25 20:44] LABS: Glucose, Whole Blood 283 mg/dL (60-115)
[2020-07-26 07:13] LABS: Glucose, Whole Blood 161 mg/dL (60-115)
[2020-07-26 11:00] LABS: Glucose, Whole Blood 246 mg/dL (60-115)
[2020-07-26 16:14] LABS: Glucose, Whole Blood 156 mg/dL (60-115)
[2020-07-26 20:35] LABS: Glucose, Whole Blood 339 mg/dL (60-115)
[2020-07-27 07:10] LABS: Glucose, Whole Blood 78 mg/dL (60-115)
[2020-07-27 08:46] LABS: Anion Gap 13 (12-20); Blood Urea Nitrogen 15 mg/dL (9-16); Calcium 8.9 mg/dL (8.4-10.2); Carbon Dioxide 31 mmol/L (22-29); Chloride 95 mmol/L (96-108); Estimated Glomerular Filt Rate > 60; Glucose Random 88 mg/dL (60-115); Potassium 4.2 mmol/l (3.3-5.1); Sodium 135 mmol/L (135-145)
[2020-07-27 11:24] LABS: Glucose, Whole Blood 237 mg/dL (60-115)
[2020-07-27 16:13] LABS: Glucose, Whole Blood 224 mg/dL (60-115)
[2020-07-28 04:41] LABS: Glucose, Whole Blood 351 mg/dL (60-115)
[2020-07-28 07:14] LABS: Glucose, Whole Blood 261 mg/dL (60-115)
[2020-07-28 11:24] LABS: Glucose, Whole Blood 46 mg/dL (60-115)
[2020-07-28 11:52] LABS: Glucose, Whole Blood 97 mg/dL (60-115)
[2020-07-28 16:38] LABS: Glucose, Whole Blood 276 mg/dL (60-115)
[2020-07-29 08:49] LABS: Glucose, Whole Blood 278 mg/dL (60-115)
[2020-07-29 09:47] LABS: SARS-COV-2 PCR UMBRL NOT DETECTED
[2020-07-29 09:57] LABS: SARS-COV-2 PCR UMBRL NOT DETECTED
[2020-07-29 11:32] LABS: Glucose, Whole Blood 96 mg/dL (60-115)
[2020-07-29 16:19] LABS: Glucose, Whole Blood 196 mg/dL (60-115)
[2020-07-29 16:35] LABS: Glucose, Whole Blood 204 mg/dL (60-115)
[2020-07-29 20:29] LABS: Glucose, Whole Blood 174 mg/dL (60-115)
[2020-07-30 09:20] LABS: Glucose, Whole Blood 275 mg/dL (60-115)
== END 2020-07-30 14:00 | disposition home or self-care (01) ==
LOC: HO.SHU2 13:26
PROVIDERS: Internal Medicine; Visit Provider Hospitalist
DX: Z51.89 Encounter for other specified aftercare (principal)
CPT/HCPCS: 0241U; 36415; 70450; 80048; 81001; 82947; 83935; 84300; 85027; 87635; U0003

== ENCOUNTER 2020-06-11 11:56 | Inpatient (IN) | payer OTHER, SELFPAY ==
[2020-06-11] VITALS (8 sets, daily range): BP systolic 119–162; BP diastolic 59–83; PULSE 103–126; RESP 18–29; TEMP 36.4–37.1; O2SAT 95–100; BMI 26.9
--- NOTE | 2020-06-11 12:21 | XR_ITS ---
EXAMINATION: XR CHEST CLINICAL INFORMATION: Shortness of breath COMPARISON: February 05, 2020 TECHNIQUE: AP portable view of the chest was obtained. FINDINGS: Appears to be some ill-defined patchy interstitial disease in the right base. No definite confluent pneumonitis is appreciated. No pneumothorax or pleural effusion. Heart normal size. No evidence of pulmonary edema. XR/XR chest 1V IMPRESSION: Patchy region of interstitial disease right base.
--- NOTE | 2020-06-11 12:22 | CT_ITS ---
EXAMINATION: CT HEAD WITHOUT CONTRAST CLINICAL INFORMATION: AMS COMPARISON: June 04, 2020 and January 25, 2020 TECHNIQUE: Contiguous axial imaging was performed from the skull base to vertex without intravenous administration of contrast. This CT examination was performed using dose optimization techniques as appropriate, variously including the following: *Automated exposure control *Adjustment of mA and/or kV according to patient size (this includes techniques or standardized protocols for targeted exams where dose is matched to indication/reason for exam; i.e. extremities or head) *Use of iterative reconstruction technique DLP: 718.39 mGy-cm FINDINGS: There is no evidence of acute intracranial hemorrhage or territorial infarction. No abnormal mass effect or midline shift is seen. Butcher to white matter differentiation is well preserved. No extra-axial fluid collections are identified. Ventricle sulci and cisterns are mildly prominent consistent with some degree of generalized atrophy. There is some mild periventricular white matter low density consistent with microangiopathy. The osseous structures and soft tissues are normal. The mastoid air cells and visualized portions of the paranasal sinuses are well aerated. CT/CT head/brain wo con IMPRESSION: No acute intracranial pathology.
--- NOTE | 2020-06-11 12:22 | ECG_ITS ---
Test Reason : WEAKNESS SOB Blood Pressure : / mmHG Vent. Rate : 125 BPM Atrial Rate : 125 BPM P-R Int : 160 ms QRS Dur : 082 ms QT Int : 296 ms P-R-T Axes : 076 061 105 degrees QTc Int : 427 ms Sinus tachycardia Nonspecific ST and T wave abnormality RSR' or QR pattern in V1 suggests right ventricular conduction delay Abnormal ECG When compared with ECG of [id number] Heart rate has increased ST now depressed in Lateral leads Referred By: Emre Tejeda Electronically Signed By:PETER THOMAS MD
--- NOTE | 2020-06-11 12:26 | ED.AMS ---
HPI - Altered Mental Status General Chief Complaint: Altered Mental Status Stated Complaint: AMS Time Seen by Provider: 06/11/20 12:19 Source: patient Mode of arrival: ambulatory Limitations: no limitations History of Present Illness HPI narrative: This is 75-year-old male with past medical history that is significant for COPD on O2 dependent at 2 L around the clock, type 2 diabetes, hyperlipidemia, hyponatremia who [facility] complaint of altered mentation since this morning. Per nurse he was refusing breakfast and his ADLs which is somewhat unusual for him as he is usually at baseline alert and oriented x3 but ?grumpy? however this morning he seemed a little ?off?. He was noted to not be wearing his oxygen and he was hypoxic with oxygen level of 70%. He was subsequently placed on non-rebreather which improved his oxygen to 100% and was brought to emergency room. Upon arrival patient is alert and oriented x2 person place refusing to answer any additional questions. When asked about pain he says yes to everything. He is tachycardic, pulse ox 88% on room air improved to 94% on 2 L. he has a cough that is described as chronic and productive according to nursing staff. Additionally per RN had labs drawn earlier this week showed hyponatremia, hyperkalemia was given Kayexalate. Full CODE Brother pilar in [place] [phone] HCP Julissa Chaney in [phone]/ [phone] Related Data Allergies Allergy/AdvReac Type Severity Reaction Status Date / Time aspirin [Aspirin] Allergy Mild UNKNOWN Unverified 04/02/20 17:43 doxycycline Allergy Unknown Verified 08/21/19 00:00 influenza virus vaccine, Allergy Unknown HIVES Unverified 04/02/20 17:43 specific [FLU VACCINE] latex [LATEX] Allergy Unknown UNKNOWN Unverified 04/02/20 17:43 Review of Systems Review of Systems: Constitutional: No Weight loss, No Fever, No Chills, No Night Sweats, No Fatigue, No Malaise ENT/Mouth: No Hearing loss, No Ear Pain, No Nasal Congestion, No Sinus Pain, No Hoarseness, No sore throat, No Rhinorrhea, No Swallowing Difficulty Eyes: No Eye Pain, No Swelling, No Redness, No Foreign Body, No Discharge, No Vision Changes Cardiovascular: No Chest Pain, No SOB, No Dyspnea on Exertion, No Orthopnea, No Edema, No Palpitations Respiratory: No Cough, No Sputum, No Wheezing, No Smoke Exposure, No Dyspnea Gastrointestinal: No Nausea, No Vomiting, No Diarrhea, No Constipation, No abdominal Pain, No Hematochezia, No Melena Genitourinary: no irregular bleeding, No Dysuria, No Urinary Frequency, No Hematuria, No Urinary Incontinence, No Urgency, No Flank Pain Musculoskeletal: No joint pain, No Myalgias, No Joint Swelling Skin: No Skin Lesions, No rash Neuro: No Weakness, No Numbness, No Paresthesias, No Loss of Consciousness, No Dizziness, No Headache Psych: No Social Issues Heme/Lymph: No Bruising, No Bleeding,No Lymphadenopathy Endocrine: No Polyuria, No Polydipsia, No Temperature Intolerance Yes all other systems are reviewed and are negative [facility] Past Medical History Medical History (Updated 06/11/20 @ 16:10 by Emre Tejeda NP) COPD (chronic obstructive pulmonary disease) Diabetes Hyperlipidemia Hyponatremia Social History Social History Alcohol intake: never Smoked in Last 30 Days: No Use of substances other than those prescribed or required for medical reasons: No Advance Directives: No Advance Directives Information Provided: Yes Physical Exam Vital Signs: Vital Signs: Last Vital Signs Temp 98.4 F 06/11/20 14:37 Pulse 121 H 06/11/20 14:37 Resp 20 06/11/20 14:37 BP 162/72 H 06/11/20 14:37 Pulse Ox 95 06/11/20 14:37 Body Mass Index 26.9 Reviewed Const: General: cooperative Nutritional Appearance: average body habitus Orientation/consciousness: patient oriented x3 HENMT: Head: Yes normal to inspection Ears: hearing grossly normal bilaterally Eyes: General: appearance normal, both eyes and all related structures Visual Atwood: normal visual atwood by confrontation Neck: Neck: Yes normal visual inspection and No tender Thyroid: Thyroid normal Chest: Chest palpation & inspection: normal inspection of the chest Resp: Effort & Inspection: normal respiratory effort Auscultation: wheezes Cardio: Jugular venous distension: no JVD Rate: tachycardic GI: Inspection: Yes normal to inspection and Yes distended Palpation (GI): Tenderness to palpation present (GI) (Over the suprapubic area) Percussion: Yes normal to percussion Auscultation: normal bowel sounds : General: Yes no CVA tenderness Back/Spine/Pelvis: Back: no CVA tenderness Skin: General skin exam: no rashes or lesions noted Neuro: General: patient oriented x3 Extrem: General: Yes normal to inspection Course Course Course Narrative: Lab shows leukocytosis of 21.6 compared to 14 on June 04. D-dimer 687, chest x-ray lung disease in the right lung base. CT of the chest ordered. CT of the head is negative. At this point meet sepsis criteria without severe sepsis. Given ceftriaxone, Zosyn Vanco for Hcap. Plan for admission. Consultations Consultation #1: Hospitalist MDM - Altered Mental Status MDM Narrative Medical decision making narrative: Altered mental status gradual onset since awakening noted by nursing staff more in the setting of hypoxia and COPD less likely CVA. Patient with history of electrolyte derangements specifically significant hyponatremia requiring ICU admits in the past. Abdomen noted be distended some urine retention place Yu. Heart rate improved with this he was given a neb could be reason why he is tachycardic. Still sounds course/wheezing will give albuterol, Solu-Medrol and check labs including head, abdomen CT, chest x-ray. Differential Diagnosis Differential diagnosis: Likely altered mental status, dementia, encephalopathy, hypoglycemia, hyponatremia and sepsis; Unlikely delirium, overdose polysubstance, renal failure, subarachnoid hemorrhage and seizures Medical Records Attestation: I reviewed the patient's medical records. Lab Data Attestation: I reviewed the patient's lab results. Result diagrams: 06/11/20 12:35 06/11/20 12:35 Labs: Lab Results 06/11/20 06/11/20 06/11/20 Range/Units 12:35 12:35 12:35 WBC 21.6 H (4.8-10.8) X10*3/uL RBC 4.11 L (4.60-5.80) X10*6/uL Hgb 10.3 L (14.0-18.0) g/dl Hct 32.2 L (42-52) % MCV 78.3 L (80-98) fL MCH 25.1 L (27.0-33.0) pg MCHC 32.0 (31.0-36.0) g/dl RDW 13.9 (11.0-16.0) % Plt Count 343 (160-400) X10*3/uL MPV 8.1 L (9.4-12.4) fL Immature Gran % (Auto) 1.4 H (0.0-0.4) % Neut % (Auto) 89.9 H (45-73) % Lymph % (Auto) 2.7 L (20-40) % Williamson % (Auto) 5.1 (2-11) % Eos % (Auto) 0.5 (0-4) % Baso % (Auto) 0.4 (0-2) % Lymph # (Auto) 0.6 L (1.2-4.9) X10*3/uL Williamson # (Auto) 1.1 (0.1-1.2) X10*3/uL Eos # (Auto) 0.1 (0.0-0.4) X10*3/uL Baso # (Auto) 0.1 (0.0-0.2) X10*3/uL Abs Immat Gran (auto) 0.31 H (0.00-0.03) X10*3/uL Absolute Neuts (auto) 19.4 H (2.0-8.3) X10*3/uL Absolute Nucleated RBC 0.000 (0.0-0.012) X10*3/uL Nucleated RBC % (auto) 0.0 (0.0-0.2) /100WBC Smear Tech's Comments VERIFIED PT (10.8-13.0) SEC INR (0.9-1.1) APTT (24.1-38.0) SEC D-Dimer Cancelled ABG pH (7.35-7.45) ABG pCO2 (32-45) mmhg ABG pO2 (83-108) mmhg ABG HCO3 (22-26) mmol/l ABG O2 Saturation % ABG Base Excess Oxygen Given Sodium 127 L (135-145) mmol/L Potassium 4.7 (3.3-5.1) mmol/l Chloride 86 L (96-108) mmol/L Carbon Dioxide 32 H (22-29) mmol/L Anion Gap 14 (12-20) BUN 19 H (9-16) mg/dL Creatinine 1.15 (0.5-1.4) mg/dL Estim Creat Clear Calc 52.6 Estimated GFR > 60 Random Glucose 78 D (60-115) mg/dL Lactic Acid (0.5-2.0) mmol/L Calcium 8.7 (8.4-10.2) mg/dL Total Bilirubin 0.2 (0.0-1.0) mg/dL AST 14 (5-37) U/L ALT 14 (0-40) U/L Alkaline Phosphatase 84 (39-117) U/L Lactate Dehydrogenase 231 (118-273) U/L Troponin I High Sens (<3.5-35.0) ng/L B-Natriuretic Peptide (<100) pg/mL Total Protein 6.6 (6.5-8.0) g/dL Albumin 4.3 (3.5-5.0) g/dL Procalcitonin ng/mL Urine Color Urine Appearance Urine pH (5.0-8.0) Ur Specific Wideman (1.005-1.025) Urine Protein (NEG-TRACE) MG/DL Urine Glucose (UA) (NEG) MG/DL Urine Ketones (NEG) MG/DL Urine Blood (NEG) Urine Nitrite (NEG) Ur Leukocyte Esterase (NEG) Urine RBC (0) /HPF Urine WBC (0-4) /HPF Ur Squamous Epith Cells /LPF Urine Bacteria /LPF Coronavirus (PCR) (Negative) Influenza Type A (PCR) (Negative) Influenza Type B (PCR) (Negative) RSV RNA Qual (PCR) (Negative) 06/11/20 06/11/20 06/11/20 Range/Units 12:35 12:35 12:35 WBC (4.8-10.8) X10*3/uL RBC (4.60-5.80) X10*6/uL Hgb (14.0-18.0) g/dl Hct (42-52) % MCV (80-98) fL MCH (27.0-33.0) pg MCHC (31.0-36.0) g/dl RDW (11.0-16.0) % Plt Count (160-400) X10*3/uL MPV (9.4-12.4) fL Immature Gran % (Auto) (0.0-0.4) % Neut % (Auto) (45-73) % Lymph % (Auto) (20-40) % Williamson % (Auto) (2-11) % Eos % (Auto) (0-4) % Baso % (Auto) (0-2) % Lymph # (Auto) (1.2-4.9) X10*3/uL Williamson # (Auto) (0.1-1.2) X10*3/uL Eos # (Auto) (0.0-0.4) X10*3/uL Baso # (Auto) (0.0-0.2) X10*3/uL Abs Immat Gran (auto) (0.00-0.03) X10*3/uL Absolute Neuts (auto) (2.0-8.3) X10*3/uL Absolute Nucleated RBC (0.0-0.012) X10*3/uL Nucleated RBC % (auto) (0.0-0.2) /100WBC Smear Tech's Comments PT (10.8-13.0) SEC INR (0.9-1.1) APTT (24.1-38.0) SEC D-Dimer ABG pH (7.35-7.45) ABG pCO2 (32-45) mmhg ABG pO2 (83-108) mmhg ABG HCO3 (22-26) mmol/l ABG O2 Saturation % ABG Base Excess Oxygen Given Sodium (135-145) mmol/L Potassium (3.3-5.1) mmol/l Chloride (96-108) mmol/L Carbon Dioxide (22-29) mmol/L Anion Gap (12-20) BUN (9-16) mg/dL Creatinine (0.5-1.4) mg/dL Estim Creat Clear Calc Estimated GFR Random Glucose (60-115) mg/dL Lactic Acid (0.5-2.0) mmol/L Calcium (8.4-10.2) mg/dL Total Bilirubin (0.0-1.0) mg/dL AST (5-37) U/L ALT (0-40) U/L Alkaline Phosphatase (39-117) U/L Lactate Dehydrogenase (118-273) U/L Troponin I High Sens 12.2 (<3.5-35.0) ng/L B-Natriuretic Peptide 92 (<100) pg/mL Total Protein (6.5-8.0) g/dL Albumin (3.5-5.0) g/dL Procalcitonin 0.09 ng/mL Urine Color Urine Appearance Urine pH (5.0-8.0) Ur Specific Wideman (1.005-1.025) Urine Protein (NEG-TRACE) MG/DL Urine Glucose (UA) (NEG) MG/DL Urine Ketones (NEG) MG/DL Urine Blood (NEG) Urine Nitrite (NEG) Ur Leukocyte Esterase (NEG) Urine RBC (0) /HPF Urine WBC (0-4) /HPF Ur Squamous Epith Cells /LPF Urine Bacteria /LPF Coronavirus (PCR) (Negative) Influenza Type A (PCR) (Negative) Influenza Type B (PCR) (Negative) RSV RNA Qual (PCR) (Negative) 06/11/20 06/11/20 06/11/20 Range/Units 12:35 12:35 13:33 WBC (4.8-10.8) X10*3/uL RBC (4.60-5.80) X10*6/uL Hgb (14.0-18.0) g/dl Hct (42-52) % MCV (80-98) fL MCH (27.0-33.0) pg MCHC (31.0-36.0) g/dl RDW (11.0-16.0) % Plt Count (160-400) X10*3/uL MPV (9.4-12.4) fL Immature Gran % (Auto) (0.0-0.4) % Neut % (Auto) (45-73) % Lymph % (Auto) (20-40) % Williamson % (Auto) (2-11) % Eos % (Auto) (0-4) % Baso % (Auto) (0-2) % Lymph # (Auto) (1.2-4.9) X10*3/uL Williamson # (Auto) (0.1-1.2) X10*3/uL Eos # (Auto) (0.0-0.4) X10*3/uL Baso # (Auto) (0.0-0.2) X10*3/uL Abs Immat Gran (auto) (0.00-0.03) X10*3/uL Absolute Neuts (auto) (2.0-8.3) X10*3/uL Absolute Nucleated RBC (0.0-0.012) X10*3/uL Nucleated RBC % (auto) (0.0-0.2) /100WBC Smear Tech's Comments PT 11.0 (10.8-13.0) SEC INR 0.9 (0.9-1.1) APTT 31.0 (24.1-38.0) SEC D-Dimer 687 ABG pH (7.35-7.45) ABG pCO2 (32-45) mmhg ABG pO2 (83-108) mmhg ABG HCO3 (22-26) mmol/l ABG O2 Saturation % ABG Base Excess Oxygen Given Sodium (135-145) mmol/L Potassium (3.3-5.1) mmol/l Chloride (96-108) mmol/L Carbon Dioxide (22-29) mmol/L Anion Gap (12-20) BUN (9-16) mg/dL Creatinine (0.5-1.4) mg/dL Estim Creat Clear Calc Estimated GFR Random Glucose (60-115) mg/dL Lactic Acid 1.4 (0.5-2.0) mmol/L Calcium (8.4-10.2) mg/dL Total Bilirubin (0.0-1.0) mg/dL AST (5-37) U/L ALT (0-40) U/L Alkaline Phosphatase (39-117) U/L Lactate Dehydrogenase (118-273) U/L Troponin I High Sens (<3.5-35.0) ng/L B-Natriuretic Peptide (<100) pg/mL Total Protein (6.5-8.0) g/dL Albumin (3.5-5.0) g/dL Procalcitonin ng/mL Urine Color YELLOW Urine Appearance CLEAR Urine pH 8.0 (5.0-8.0) Ur Specific Wideman 1.010 (1.005-1.025) Urine Protein NEG (NEG-TRACE) MG/DL Urine Glucose (UA) NEG (NEG) MG/DL Urine Ketones NEG (NEG) MG/DL Urine Blood NEG (NEG) Urine Nitrite NEG (NEG) Ur Leukocyte Esterase NEG (NEG) Urine RBC 0-2 (0) /HPF Urine WBC 0 (0-4) /HPF Ur Squamous Epith Cells NONE /LPF Urine Bacteria NONE /LPF Coronavirus (PCR) (Negative) Influenza Type A (PCR) (Negative) Influenza Type B (PCR) (Negative) RSV RNA Qual (PCR) (Negative) 06/11/20 06/11/20 Range/Units 13:33 Unknown WBC (4.8-10.8) X10*3/uL RBC (4.60-5.80) X10*6/uL Hgb (14.0-18.0) g/dl Hct (42-52) % MCV (80-98) fL MCH (27.0-33.0) pg MCHC (31.0-36.0) g/dl RDW (11.0-16.0) % Plt Count (160-400) X10*3/uL MPV (9.4-12.4) fL Immature Gran % (Auto) (0.0-0.4) % Neut % (Auto) (45-73) % Lymph % (Auto) (20-40) % Williamson % (Auto) (2-11) % Eos % (Auto) (0-4) % Baso % (Auto) (0-2) % Lymph # (Auto) (1.2-4.9) X10*3/uL Williamson # (Auto) (0.1-1.2) X10*3/uL Eos # (Auto) (0.0-0.4) X10*3/uL Baso # (Auto) (0.0-0.2) X10*3/uL Abs Immat Gran (auto) (0.00-0.03) X10*3/uL Absolute Neuts (auto) (2.0-8.3) X10*3/uL Absolute Nucleated RBC (0.0-0.012) X10*3/uL Nucleated RBC % (auto) (0.0-0.2) /100WBC Smear Tech's Comments PT (10.8-13.0) SEC INR (0.9-1.1) APTT (24.1-38.0) SEC D-Dimer ABG pH 7.44 (7.35-7.45) ABG pCO2 45 (32-45) mmhg ABG pO2 65 L (83-108) mmhg ABG HCO3 30 H (22-26) mmol/l ABG O2 Saturation 92.9 % ABG Base Excess 5.2 Oxygen Given 2 L Sodium (135-145) mmol/L Potassium (3.3-5.1) mmol/l Chloride (96-108) mmol/L Carbon Dioxide (22-29) mmol/L Anion Gap (12-20) BUN (9-16) mg/dL Creatinine (0.5-1.4) mg/dL Estim Creat Clear Calc Estimated GFR Random Glucose (60-115) mg/dL Lactic Acid (0.5-2.0) mmol/L Calcium (8.4-10.2) mg/dL Total Bilirubin (0.0-1.0) mg/dL AST (5-37) U/L ALT (0-40) U/L Alkaline Phosphatase (39-117) U/L Lactate Dehydrogenase (118-273) U/L Troponin I High Sens (<3.5-35.0) ng/L B-Natriuretic Peptide (<100) pg/mL Total Protein (6.5-8.0) g/dL Albumin (3.5-5.0) g/dL Procalcitonin ng/mL Urine Color Urine Appearance Urine pH (5.0-8.0) Ur Specific Wideman (1.005-1.025) Urine Protein (NEG-TRACE) MG/DL Urine Glucose (UA) (NEG) MG/DL Urine Ketones (NEG) MG/DL Urine Blood (NEG) Urine Nitrite (NEG) Ur Leukocyte Esterase (NEG) Urine RBC (0) /HPF Urine WBC (0-4) /HPF Ur Squamous Epith Cells /LPF Urine Bacteria /LPF Coronavirus (PCR) NEGATIVE (Negative) Influenza Type A (PCR) NEGATIVE (Negative) Influenza Type B (PCR) NEGATIVE (Negative) RSV RNA Qual (PCR) NEGATIVE (Negative) Discharge Plan Discharge Clinical Impression: COPD (chronic obstructive pulmonary disease), Pneumonia Patient Disposition: Admitted As Inpatient
[2020-06-11] MEDS: 0.9 % Sodium Chloride 500 ML 1000 ML IV (12:30)
[2020-06-11] MEDS: methylPREDNISolone Sod Succ/PF 125 MG/2 ML VIAL IVPUSH (12:33)
--- NOTE | 2020-06-11 12:34 | CT_ITS ---
EXAMINATION: CT ABDOMEN AND PELVIS WITHOUT CONTRAST CLINICAL INFORMATION: Abdominal distention COMPARISON: December 17, 2019 TECHNIQUE: Multidetector volumetric imaging was performed from the superior aspect of the liver through the pubic symphysis. Sagittal and coronal reformatted images were obtained on the technologist's workstation. This CT examination was performed using dose optimization techniques as appropriate, variously including the following: *Automated exposure control *Adjustment of mA and/or kV according to patient size (this includes techniques or standardized protocols for targeted exams where dose is matched to indication/reason for exam; i.e. extremities or head) *Use of iterative reconstruction technique DLP: 585 mGy-cm FINDINGS: There is breathing artifact present. LUNG BASES: There is bibasilar and right middle lobe interstitial disease with small amount of airspace disease which may be related to chronic interstitial fibrosis or atelectasis. Density within the right middle lobe measuring approximately 1.6 cm in diameter may be related to atelectasis however lung nodule cannot be excluded on this study. No pleural or pericardial effusion. LIVER, GALLBLADDER, AND BILIARY TREE: The liver is normal in size, shape, and attenuation. No focal hepatic lesion or biliary ductal dilatation is present. The gallbladder is unremarkable with no evidence of radiopaque gallstones, gallbladder wall thickening, or obvious pericholecystic inflammatory changes. PANCREAS: Unremarkable. SPLEEN: Unremarkable. ADRENAL GLANDS: Unremarkable. KIDNEYS AND URETERS: The kidneys are normal in size, shape, and attenuation. No hydronephrosis, hydroureter, or collecting system calculi seen. Renal artery calcific plaque is seen. There is mild perinephric stranding. BLADDER: Yu catheter in place with wall thickening. GASTROINTESTINAL TRACT: No dilated loops of large or small bowel are evident. No free air or free fluid is seen. There is a large amount of stool seen within the rectal sigmoid region. Appendix appears unremarkable. There is a nonocclusive loop of small bowel seen within the right inguinal hernia. ABDOMINAL WALL: Right inguinal hernia containing loop of small bowel. LYMPH NODES: No lymphadenopathy appreciated. VASCULAR: There is a large amount of calcified plaque seen throughout the aortoiliac system. No abdominal aortic aneurysm. PELVIC VISCERA: No abnormal pelvic mass identified. Prostatic calcifications are seen. Yu catheter in place. OSSEOUS STRUCTURES: No suspicious destructive bony lesions. There is degenerative disc disease present. CT/CT abdomen pelvis wo con IMPRESSION: No evidence of ileus or obstruction. What appears be chronic interstitial lung disease at the lung bases with question region of atelectasis, airspace disease, or nodule in the right middle lobe for which follow-up is recommended. Atherosclerotic disease. Right inguinal hernia containing loop of small bowel.
[2020-06-11 13:04] LABS: Basophils Absolute Auto 0.1 X10*3/uL (0.0-0.2); Basophils Percent Auto 0.4 % (0-2); Eosinophils Absolute Auto 0.1 X10*3/uL (0.0-0.4); Eosinophils Percent Auto 0.5 % (0-4); Hematocrit 32.2 % (42-52); Hemoglobin 10.3 g/dl (14.0-18.0); Imm Gran Abs Auto 0.31 X10*3/uL (0.00-0.03); Imm Gran Pct Auto 1.4 % (0.0-0.4); Lymphocytes Absolute Auto 0.6 X10*3/uL (1.2-4.9); Lymphocytes Percent Auto 2.7 % (20-40); MANUAL DIFF FLAG SCAN; Mean Corpuscular Hemoglobin 25.1 pg (27.0-33.0); Mean Corpuscular Volume 78.3 fL (80-98); Mean Platelet Volume 8.1 fL (9.4-12.4); Monocytes Absolute Auto 1.1 X10*3/uL (0.1-1.2); Monocytes Percent Auto 5.1 % (2-11); Neutrophils Absolute Auto 19.4 X10*3/uL (2.0-8.3); Neutrophils Percent Auto 89.9 % (45-73); Platelet Count 343 X10*3/uL (160-400); Red Blood Count 4.11 X10*6/uL (4.60-5.80); Red Cell Distribution Width 13.9 % (11.0-16.0); SCAN SMEAR FLAG 1; White Blood Count 21.6 X10*3/uL (4.8-10.8)
[2020-06-11 13:09] LABS: INTERNATIONAL NORM RATIO 0.9 (0.9-1.1)
[2020-06-11 13:12] LABS: D Dimer 687 NG/ML
[2020-06-11 13:23] LABS: Influenza A PCR NEGATIVE (Negative); Influenza B PCR NEGATIVE (Negative); Resp Syncy Virus RNA Qual PCR NEGATIVE (Negative); SARS COV2 PCR INHOUSE NEGATIVE (Negative)
[2020-06-11 13:26] LABS: Lactic Acid 1.4 mmol/L (0.5-2.0)
[2020-06-11 13:31] LABS: Alanine Aminotransferase 14 U/L (0-40); Albumin Level 4.3 g/dL (3.5-5.0); Alkaline Phosphatase 84 U/L (39-117); Anion Gap 14 (12-20); Aspartate Amino Transferase 14 U/L (5-37); Bilirubin Total 0.2 mg/dL (0.0-1.0); Blood Urea Nitrogen 19 mg/dL (9-16); Calcium 8.7 mg/dL (8.4-10.2); Carbon Dioxide 32 mmol/L (22-29); Chloride 86 mmol/L (96-108); Creatinine Clr Calc Pharmacy 52.6; Estimated Glomerular Filt Rate > 60; Glucose Random 78 mg/dL (60-115); Lactate Dehydrogenase 231 U/L (118-273); Potassium 4.7 mmol/l (3.3-5.1); Sodium 127 mmol/L (135-145); Total Protein 6.6 g/dL (6.5-8.0)
[2020-06-11 13:36] LABS: Troponin-I High Sensitivity 12.2 ng/L (<3.5-35.0)
[2020-06-11] MEDS: Albuterol Sulfate 90 MCG 8 GM INHALER 4 PUFF INHALE (13:36)
[2020-06-11 13:39] LABS: Pt Ventilation O2% 2 L
[2020-06-11 13:40] LABS: Glucose Urine UA NEG (NEG); Leukocyte Esterase Urine NEG (NEG); Nitrite Urine NEG (NEG); Urine Blood NEG (NEG); Urine Ketones NEG (NEG); Urine Protein NEG (NEG-TRACE)
[2020-06-11 13:40] LABS: SLIDE REVIEW VERIFIED
[2020-06-11 13:41] LABS: Appearance Urine CLEAR; Color Urine YELLOW
[2020-06-11 13:43] LABS: B Type Natriuretic Peptide 92 pg/mL (<100)
[2020-06-11 13:46] LABS: ABG PCO2 45 mmhg (32-45); Base Excess ABG 5.2; HCO3 ABG 30 mmol/l (22-26); Oxygen Saturation ABG 92.9 %; PO2 ABG 65 mmhg (83-108); RBC Urine 0-2 /HPF (0); WBC Urine 0 /HPF (0-4); pH ABG 7.44 (7.35-7.45)
[2020-06-11 14:01] LABS: Procalcitonin 0.09 ng/mL
--- NOTE | 2020-06-11 14:02 | CT_ITS ---
EXAMINATION: CT ANGIOGRAM OF THE CHEST WITH AND WITHOUT CONTRAST (CT PULMONARY ANGIOGRAM FOR PE) CLINICAL INFORMATION: Reason for Exam Hypoxia, elevated D-dimer COMPARISON: Chest x-ray 06/11/2020 12:[address] scan of the chest December 2019 TECHNIQUE: Prior to contrast administration, noncontrast localization images were obtained. Subsequently, multidetector volumetric imaging was performed from the thoracic inlet to below the diaphragms following the administration of 75 mL Omnipaque 350 intravenous contrast. No contrast reaction reported Sagittal, coronal, and MIP oblique sagittal reformatted images were obtained on the CT workstation, uploaded to PACS, and reviewed. This CT examination was performed using dose optimization techniques as appropriate, variously including the following: *Automated exposure control *Adjustment of mA and/or kV according to patient size (this includes techniques or standardized protocols for targeted exams where dose is matched to indication/reason for exam; i.e. extremities or head) *Use of iterative reconstruction technique Total exam dose-length product 312 mGy-cm FINDINGS: The exam is slightly limited by motion artifact QUALITY OF STUDY/CONTRAST BOLUS: Satisfactory. PULMONARY ARTERIES: No central or segmental pulmonary emboli. THORACIC AORTA: There is calcific atherosclerotic disease. LUNG: There is linear opacity in the lingula which is chronic compatible scarring unchanged compared with December 2019. There is no patchy opacity in the right middle lobe anteriorly adjacent to the pleura. See axial image 51 There is bilateral patchy opacity adjacent to the pleura posteriorly likely reflecting atelectasis new compared to prior. Minimal small areas of pleural opacity posteriorly unchanged compared to prior compatible with chronic change. PLEURA: No pleural effusion or pneumothorax. MEDIASTINUM: Normal heart size. No pericardial effusion. No hilar or mediastinal lymphadenopathy. No evidence of septal bowing or right heart strain. CHEST WALL/AXILLA: No axillary or internal mammary lymphadenopathy. OSSEOUS STRUCTURES: No acute or suspicious osseous abnormality. UPPER ABDOMEN: Unremarkable. No reflux of contrast into the hepatic veins to suggest elevated right heart pressures. CT/CT angio chest PE protocol IMPRESSION: No evidence for pulmonary embolism. Nonspecific patchy opacity in the right middle lobe may reflect atelectasis but cannot exclude evolving infiltrate or pneumonia new compared to December 2019. Posterior bilateral opacities likely atelectasis VTE: negative
--- NOTE | 2020-06-11 14:46 | PC.NURSE ---
pt to ct at this time
[2020-06-11] MEDS: cefTRIAXone sodium 1 GM in 0.9 % Sodium Chloride 50 ML IV (14:55)
[2020-06-11] MEDS: iohexoL 350 MG/ML 100 ML INFUS..BTL 75 ML IV (15:01)
--- NOTE | 2020-06-11 15:57 | PC.NURSE ---
pt dinner order placed. pt requesting to rest. lights dimmed and noise minimized.
[2020-06-11] MEDS: Piperacillin Sodium/Tazobactam 3.375 GM in 0.9 % Sodium Chloride 50 ML IV (16:20)
--- NOTE | 2020-06-11 17:03 | P.HPHOSP_ITS ---
History of Present Illness Date of Service: 06/11/20 <MALLORY Pemberton Last Filed: 06/11/20 17:36> Chief Complaint: SHORTNESS OF BREATH <MALLORY Pemberton Last Filed: 06/11/20 17:36> this is a 75-year-old [facility] who was sent to the emergency department for evaluation of shortness of breath. Patient has a history of oxygen dependent COPD but was found to be hypoxic. It was determined that his oxygen tank was empty but he was sent to the emergency department for evaluation. The patient reports shortness of breath and a dry cough which he thinks began today. He is also complaining of a headache. Lab work revealed hyponatremia with a sodium of 127 which is chronic for the patient. He had leukocytosis of 21.6. He was afebrile, tachycardic. Chest x- ray showed possible pneumonia. He underwent CTA which was negative for pulmonary embolism but showed nonspecific patchy opacity in the right middle lobe which could represent involving infiltrate. He was treated with IV antibiotics. In addition his abdomen was noted to be distended and a Yu catheter was placed. He underwent a CAT scan of his abdomen which was unremarkable. <MALLORY Pemberton - Last Filed: 06/11/20 17:36> Review of Systems Review of Systems: Yes all other systems are reviewed and are negative <MALLORY Pemberton Last Filed: 06/11/20 17:36> Cardiovascular: Cardiovascular: Denies chest pain and Reports dyspnea <MALLORY Pemberton Last Filed: 06/11/20 17:36> Respiratory: Respiratory: Reports cough and Reports dyspnea <MALLORY Pemberton Last Filed: 06/11/20 17:36> Gastrointestinal: Gastrointestinal: Denies abdominal pain, Denies diarrhea, Denies nausea and Denies vomiting <MALLORY Pemberton Last Filed: 06/11/20 17:36> [facility], [facility] Medical History: Medical History (Updated 06/23/20 @ 00:09 by Background Daemon) Anemia Anxiety COPD (chronic obstructive pulmonary disease) Depression Diabetes Hyperlipidemia Hypertension Hyponatremia Osteoarthritis SVT (supraventricular tachycardia) Trigeminal neuralgia <MALLORY Pemberton Last Filed: 06/11/20 17:36> Functional capacity: wheelchair bound <MALLORY Pemberton - Last Filed: 06/11/20 17:36> Family history: reviewed and not pertinent <MALLORY Pemberton - Last Filed: 06/11/20 17:36> Social History: Social History (Updated 06/11/20 @ 17:10 by MALLORY Pemberton) Household Members: Other Household Members Other:: SNF Housing: [facility] Do you presently have visiting nurse or other home services: No Alcohol intake: never Smoking Status: Former smoker Smoked in Last 30 Days: No Use of substances other than those prescribed or required for medical reasons: No Currently Displaying Signs/Symptoms of Drug Intoxication Withdrawal: No Have you been hit, kicked, punched, or otherwise hurt by someone within the past year? If so, by whom?: No Do you feel safe in your current relationship?: No Current Relationship Is there a partner from a previous relationship who is making you feel unsafe now?: No Are you made to feel afraid or neglected: No Advance Directives: No Advance Directives Information Provided: Yes Do you have thoughts of harming others: None Do you have a plan to hurt others: No Plan Recently lost weight without trying: Unsure service: Yes (Lives [facility]) Current occupational status: retired <MALLORY Pemberton - Last Filed: 06/11/20 17:36> Meds Allergies/Adverse reactions: Allergies Allergy/AdvReac Type Severity Reaction Status Date / Time aspirin [Aspirin] Allergy Mild UNKNOWN Verified 06/12/20 09:10 doxycycline Allergy Unknown Unknown Verified 06/12/20 09:10 influenza virus vaccine, Allergy Unknown HIVES Verified 06/12/20 09:10 specific [FLU VACCINE] latex [LATEX] Allergy Unknown UNKNOWN Verified 06/12/20 09:10 <MALLORY Pemberton - Last Filed: 06/11/20 17:36> Home medications: Home Medications Medication Instructions Recorded Confirmed Type Lantus U-100 Insulin 25 unit SUBCUT BEDTIME 06/11/20 06/13/20 History acetaminophen [Tylenol] 325 mg PO 0000,0600,1200,1800 06/11/20 06/13/20 History atenolol 50 mg PO DAILY 06/11/20 06/11/20 History atorvastatin [Lipitor] 10 mg PO DAILY@1700 06/11/20 06/13/20 History carbamazepine [Tegretol] 200 mg PO BID@0800,1600 06/11/20 06/13/20 History diazepam [Valium] 5 mg PO TID@0800,1200,1700 06/11/20 06/13/20 History diazepam [Valium] 10 mg PO DAILY@209906/11/20 06/13/20 History doxepin 100 mg PO DAILY@209906/11/20 06/13/20 History insulin lispro [Humalog U-100 0 unit SUBCUT TID@0730,1100,1600 06/11/20 06/13/20 History Insulin] lidocaine [Salonpas (lidocaine)] 1 patch TOPICAL DAILY@0600 06/11/20 06/13/20 History metformin 1,000 mg PO BID@0900,1700 06/11/20 06/13/20 History omeprazole 20 mg PO DAILY@1600 06/11/20 06/13/20 History oxycodone 5 mg PO 0000,0600,1200,1800 06/11/20 06/13/20 History prednisone 10 mg PO DAILY@0800 06/11/20 06/13/20 History quetiapine [Seroquel] 25 mg PO BID@1700,2100 06/11/20 06/13/20 History acetaminophen 650 mg PO TID@0800,1400,2000 06/13/20 06/13/20 History albuterol sulfate 2.5 mg INHALATION Q4H PRN 06/13/20 06/13/20 History artificial tear([id number]) 1 drp OPHTHALMIC (EYE) Q6H PRN 06/13/20 06/13/20 History bisacodyl 10 mg PO DAILY PRN 06/13/20 06/13/20 History diltiazem HCl 300 mg PO DAILY@1000 06/13/20 06/13/20 History docusate sodium 100 mg PO BID@0900,1700 06/13/20 06/13/20 History fluticasone propionate 2 spray INTRANASAL DAILY@209906/13/20 06/13/20 History guaifenesin 100 mg PO Q4H PRN 06/13/20 06/13/20 History ipratropium-albuterol 3 ml INHALATION 0600,1000,1400,1800 06/13/20 06/13/20 History magnesium hydroxide [Milk of 30 ml PO DAILY PRN 06/13/20 06/13/20 History Magnesia] nitroglycerin 0.4 mg SUBLINGUAL Q5M PRN 06/13/20 06/13/20 History polyethylene glycol 3350 17 g PO DAILY 06/13/20 06/13/20 History sodium chloride 1 spray INTRANASAL Q1H PRN 06/13/20 06/13/20 History <MALLORY Pemberton - Last Filed: 06/11/20 17:36> Physical Exam Vital Signs and Narrative: Vital Signs: Last Vital Signs Temp 98.4 F 06/11/20 14:37 Pulse 121 H 06/11/20 14:37 Resp 20 06/11/20 14:37 BP 162/72 H 06/11/20 14:37 Pulse Ox 95 06/11/20 14:37 Body Mass Index 26.9 <MALLORY Pemberton - Last Filed: 06/11/20 17:36> Const: General: awake <MALLORY Pemberton - Last Filed: 06/11/20 17:36> Nutritional Appearance: well nourished <MALLORY Pemberton - Last Filed: 06/11/20 17:36> HENMT: Head: Yes normocephalic and Yes atraumatic <MALLORY Pemberton - Last Filed: 06/11/20 17:36> Eyes: Sclerae: sclerae normal <MALLORY Pemberton - Last Filed: 06/11/20 17:36> Chest: Chest palpation & inspection: normal inspection of the chest <MALLORY Pemberton Last Filed: 06/11/20 17:36> Resp: Effort & Inspection: normal respiratory effort and no respiratory distress <MALLORY Pembertno - Last Filed: 06/11/20 17:36> Auscultation: clear to auscultation bilaterally, no rhonchi and no wheezes <MALLORY Pemberton Last Filed: 06/11/20 17:36> Cardio: Rate: tachycardic <MALLORY Pemberton - Last Filed: 06/11/20 17:36> Rhythm: regular rhythm <MALLORY Pemberton - Last Filed: 06/11/20 17:36> GI: Palpation (GI): Soft to palpation and nontender <MALLORY Pemberton - Last Filed: 06/11/20 17:36> Skin: General skin exam: no rashes or lesions noted <MALLORY Pemberton - Last Filed: 06/11/20 17:36> Neuro: Cranial nerves: Yes CN's II-XII intact bilaterally and Yes Bilaterally intact EOM present <MALLORY Pemberton - Last Filed: 06/11/20 17:36> Extrem: General: Yes normal to inspection <MALLORY Pemberton - Last Filed: 06/11/20 17:36> Results Labs CBC and Chem 7: : 06/12/20 07:52 06/12/20 07:52 <MALLORY Pemberton - Last Filed: 06/11/20 17:36> Labs: Laboratory Results - last 24 hr 06/11/20 06/11/20 06/11/20 12:35 12:35 12:35 MCV 78.3 L MCH 25.1 L MCHC 32.0 RDW 13.9 Plt Count 343 MPV 8.1 L Immature Gran % (Auto) 1.4 H Neut % (Auto) 89.9 H Lymph % (Auto) 2.7 L Hitchcock % (Auto) 5.1 Eos % (Auto) 0.5 Baso % (Auto) 0.4 Lymph # (Auto) 0.6 L Hitchcock # (Auto) 1.1 Eos # (Auto) 0.1 Baso # (Auto) 0.1 Abs Immat Gran (auto) 0.31 H Absolute Neuts (auto) 19.4 H Absolute Nucleated RBC 0.000 Nucleated RBC % (auto) 0.0 Smear Tech's Comments VERIFIED PT INR APTT D-Dimer Cancelled ABG pH ABG pCO2 ABG pO2 ABG HCO3 ABG O2 Saturation ABG Base Excess Oxygen Given Anion Gap 14 Estim Creat Clear Calc 52.6 Estimated GFR > 60 Random Glucose 78 D Lactic Acid Calcium 8.7 Total Bilirubin 0.2 AST 14 ALT 14 Alkaline Phosphatase 84 Lactate Dehydrogenase 231 Troponin I High Sens B-Natriuretic Peptide Total Protein 6.6 Albumin 4.3 Procalcitonin Urine Color Urine Appearance Urine pH Ur Specific [place] Urine Protein Urine Glucose (UA) Urine Ketones Urine Blood Urine Nitrite Ur Leukocyte Esterase Urine RBC Urine WBC Ur Squamous Epith Cells Urine Bacteria Coronavirus (PCR) Influenza Type A (PCR) Influenza Type B (PCR) RSV RNA Qual (PCR) 06/11/20 06/11/20 06/11/20 12:35 12:35 12:35 MCV MCH MCHC RDW Plt Count MPV Immature Gran % (Auto) Neut % (Auto) Lymph % (Auto) Hitchcock % (Auto) Eos % (Auto) Baso % (Auto) Lymph # (Auto) Hitchcock # (Auto) Eos # (Auto) Baso # (Auto) Abs Immat Gran (auto) Absolute Neuts (auto) Absolute Nucleated RBC Nucleated RBC % (auto) Smear Tech's Comments PT INR APTT D-Dimer ABG pH ABG pCO2 ABG pO2 ABG HCO3 ABG O2 Saturation ABG Base Excess Oxygen Given Anion Gap Estim Creat Clear Calc Estimated GFR Random Glucose Lactic Acid Calcium Total Bilirubin AST ALT Alkaline Phosphatase Lactate Dehydrogenase Troponin I High Sens 12.2 B-Natriuretic Peptide 92 Total Protein Albumin Procalcitonin 0.09 Urine Color Urine Appearance Urine pH Ur Specific [place] Urine Protein Urine Glucose (UA) Urine Ketones Urine Blood Urine Nitrite Ur Leukocyte Esterase Urine RBC Urine WBC Ur Squamous Epith Cells Urine Bacteria Coronavirus (PCR) Influenza Type A (PCR) Influenza Type B (PCR) RSV RNA Qual (PCR) 06/11/20 06/11/20 06/11/20 12:35 12:35 13:33 MCV MCH MCHC RDW Plt Count MPV Immature Gran % (Auto) Neut % (Auto) Lymph % (Auto) Hitchcock % (Auto) Eos % (Auto) Baso % (Auto) Lymph # (Auto) Hitchcock # (Auto) Eos # (Auto) Baso # (Auto) Abs Immat Gran (auto) Absolute Neuts (auto) Absolute Nucleated RBC Nucleated RBC % (auto) Smear Tech's Comments PT 11.0 INR 0.9 APTT 31.0 D-Dimer 687 ABG pH ABG pCO2 ABG pO2 ABG HCO3 ABG O2 Saturation ABG Base Excess Oxygen Given Anion Gap Estim Creat Clear Calc Estimated GFR Random Glucose Lactic Acid 1.4 Calcium Total Bilirubin AST ALT Alkaline Phosphatase Lactate Dehydrogenase Troponin I High Sens B-Natriuretic Peptide Total Protein Albumin Procalcitonin Urine Color YELLOW Urine Appearance CLEAR Urine pH 8.0 Ur Specific [place] 1.010 Urine Protein NEG Urine Glucose (UA) NEG Urine Ketones NEG Urine Blood NEG Urine Nitrite NEG Ur Leukocyte Esterase NEG Urine RBC 0-2 Urine WBC 0 Ur Squamous Epith Cells NONE Urine Bacteria NONE Coronavirus (PCR) Influenza Type A (PCR) Influenza Type B (PCR) RSV RNA Qual (PCR) 06/11/20 06/11/20 13:33 Unknown MCV MCH MCHC RDW Plt Count MPV Immature Gran % (Auto) Neut % (Auto) Lymph % (Auto) Hitchcock % (Auto) Eos % (Auto) Baso % (Auto) Lymph # (Auto) Hitchcock # (Auto) Eos # (Auto) Baso # (Auto) Abs Immat Gran (auto) Absolute Neuts (auto) Absolute Nucleated RBC Nucleated RBC % (auto) Smear Tech's Comments PT INR APTT D-Dimer ABG pH 7.44 ABG pCO2 45 ABG pO2 65 L ABG HCO3 30 H ABG O2 Saturation 92.9 ABG Base Excess 5.2 Oxygen Given 2 L Anion Gap Estim Creat Clear Calc Estimated GFR Random Glucose Lactic Acid Calcium Total Bilirubin AST ALT Alkaline Phosphatase Lactate Dehydrogenase Troponin I High Sens B-Natriuretic Peptide Total Protein Albumin Procalcitonin Urine Color Urine Appearance Urine pH Ur Specific [place] Urine Protein Urine Glucose (UA) Urine Ketones Urine Blood Urine Nitrite Ur Leukocyte Esterase Urine RBC Urine WBC Ur Squamous Epith Cells Urine Bacteria Coronavirus (PCR) NEGATIVE Influenza Type A (PCR) NEGATIVE Influenza Type B (PCR) NEGATIVE RSV RNA Qual (PCR) NEGATIVE <MALLORY Pemberton - Last Filed: 06/11/20 17:36> Imaging Radiologist's Impressions: Impressions Chest X-Ray 06/11/20 12:21 IMPRESSION: Patchy region of interstitial disease right base. Head CT 06/11/20 12:22 IMPRESSION: No acute intracranial pathology. Abdomen/Pelvis CT 06/11/20 12:34 IMPRESSION: No evidence of ileus or obstruction. What appears be chronic interstitial lung disease at the lung bases with question region of atelectasis, airspace disease, or nodule in the right middle lobe for which follow-up is recommended. Atherosclerotic disease. Right inguinal hernia containing loop of small bowel. Chest CTA 06/11/20 14:02 IMPRESSION: No evidence for pulmonary embolism. Nonspecific patchy opacity in the right middle lobe may reflect atelectasis but cannot exclude evolving infiltrate or pneumonia new compared to December 2019. Posterior bilateral opacities likely atelectasis VTE: negative <MALLORY Pemberton - Last Filed: 06/11/20 17:36> Assessment and Plan (1) Sepsis: Status: Acute <MALLORY Pemberton - Last Filed: 06/11/20 17:36> (2) Pneumonia: Status: Acute <MALLORY Pemberton - Last Filed: 06/11/20 17:36> (3) Hyponatremia: Status: Acute <MALLORY Pemberton - Last Filed: 06/11/20 17:36> (4) Diabetes: Status: Acute <MALLORY Pemberton - Last Filed: 06/11/20 17:36> this is a 75-year-old [facility] with a history of COPD on home o2, diabetes, hypertension, dyslipidemia, trigeminal neuralgia, chronic hyponatremia who was sent to the emergency department for hypoxia found to have pneumonia. Sepsis due to CAP meets sepsis criteria with leukocytosis, tachycardia. Lactic acid within normal limits Covid, Flu, RSV negative Sepsis focused exam completed IV antibiotics P.r.n. breathing treatments Follow-up blood cultures Currently at baseline oxygen COPD/ chronic respiratory failure no acute exacerbation on chronic prednisone headache brain CT negative. Afebrile Fioricet urinary retention Uy placed in the ED diabetes ADA diet insulin sliding scale, POCs hyponatremia. Chronic At baseline anemia. Chronic H/ H at baseline med reconciliation pending at this time DVT prophylaxis- Lovenox Code status-full code This case was discussed with Dr. Howard <MALLORY Pemberton - Last Filed: 06/11/20 17:36>
[2020-06-11] MEDS: vancomycin HCL 1,000 MG in 0.9 % Sodium Chloride 250 ML 270 MG IV (17:18)
--- NOTE | 2020-06-11 17:33 | PM.EVENT ---
Event Note Date of Service: 06/11/20 Event Note: Patient seen examined with APC, patient sent to [facility] for evaluation of hypoxia, patient complaining of headache, shortness of breath and cough. On examination patient awake alert complaining of headache, lungs with no expiratory wheeze or rhonchi, heart regular extremities no edema. chest x-ray and CTA chest reviewed. Sepsis secondary to pneumonia agree with treatment plan as per APC.
--- NOTE | 2020-06-11 18:01 | PC.NURSE ---
report given to [facility]
[2020-06-11] MEDS: Enoxaparin Sodium 40 MG/0.4 ML SYRINGE SUBCUT (19:24)
[2020-06-11] MEDS: Azithromycin 500 MG in 0.9 % Sodium Chloride 250 ML 125 MG IV (19:53)
[2020-06-11 20:59] LABS: Glucose, Whole Blood 511 mg/dL (60-115)
[2020-06-11] MEDS: Insulin Lispro 100 UNIT/ML 3 ML VIAL SUBCUT (21:01)
[2020-06-11] MEDS: Insulin Lispro 100 UNIT/ML 3 ML VIAL 10 UNIT SUBCUT (21:03)
[2020-06-11] MEDS: Albuterol/Iprat 2.5/0.5MG 3 ML AMPUL.NEB INHALE (21:20)
[2020-06-12] VITALS (7 sets, daily range): BP systolic 112–162; BP diastolic 56–82; PULSE 86–108; RESP 16–19; TEMP 36.1–37; O2SAT 93–99
[2020-06-12] MEDS: 0.9 % Sodium Chloride Flush 3 ML SYRINGE IVFLUSH ×4 (00:39→23:42)
[2020-06-12] MEDS: oxyCODONE HCl Immed Release 5 MG TABLET PO ×3 (06:37→20:36)
[2020-06-12] MEDS: Acetaminophen 325 MG TABLET 650 MG PO ×2 (06:37→20:36)
[2020-06-12 08:01] LABS: Basophils Percent Auto 0.2 % (0-2); Eosinophils Percent Auto 0.1 % (0-4); Hematocrit 28.2 % (42-52); Hemoglobin 9.2 g/dl (14.0-18.0); Imm Gran Abs Auto 0.27 X10*3/uL (0.00-0.03); Imm Gran Pct Auto 1.5 % (0.0-0.4); Lymphocytes Absolute Auto 0.6 X10*3/uL (1.2-4.9); Lymphocytes Percent Auto 3.1 % (20-40); MANUAL DIFF FLAG SCAN; Mean Corpuscular HGB Conc 32.6 g/dl (31.0-36.0); Mean Corpuscular Hemoglobin 25.6 pg (27.0-33.0); Mean Corpuscular Volume 78.6 fL (80-98); Mean Platelet Volume 8.2 fL (9.4-12.4); Monocytes Absolute Auto 1.2 X10*3/uL (0.1-1.2); Monocytes Percent Auto 6.4 % (2-11); Neutrophils Absolute Auto 16.3 X10*3/uL (2.0-8.3); Neutrophils Percent Auto 88.7 % (45-73); Platelet Count 300 X10*3/uL (160-400); Red Blood Count 3.59 X10*6/uL (4.60-5.80); SCAN SMEAR FLAG 1; White Blood Count 18.4 X10*3/uL (4.8-10.8)
[2020-06-12 08:20] LABS: Glucose, Whole Blood 214 mg/dL (60-115)
[2020-06-12 08:21] LABS: Anion Gap 15 (12-20); Blood Urea Nitrogen 21 mg/dL (9-16); Calcium 8.5 mg/dL (8.4-10.2); Carbon Dioxide 28 mmol/L (22-29); Chloride 93 mmol/L (96-108); Creatinine Clr Calc Pharmacy 63.1; Estimated Glomerular Filt Rate > 60; Glucose Random 215 mg/dL (60-115); Potassium 4.5 mmol/l (3.3-5.1); Sodium 131 mmol/L (135-145)
[2020-06-12] MEDS: Insulin Lispro 100 UNIT/ML 3 ML VIAL SUBCUT ×3 (08:22→20:35)
[2020-06-12 08:41] LABS: SLIDE REVIEW VERIFIED
[2020-06-12] MEDS: Omeprazole 20 MG CAPSULE.DR PO (09:33)
[2020-06-12] MEDS: QUEtiapine Fumarate 25 MG TABLET PO ×2 (09:33→20:35)
[2020-06-12] MEDS: Atorvastatin Calcium 10 MG TABLET PO (09:33)
[2020-06-12] MEDS: Insulin Glargine,Hum.rec.anlog 100 UNIT/ML 10 ML VIAL 25 UNIT SUBCUT (09:33)
[2020-06-12] MEDS: carBAMazepine 200 MG TABLET PO ×2 (09:33→20:35)
[2020-06-12] MEDS: diazePAM 10 MG TABLET PO (09:33)
[2020-06-12] MEDS: atenoloL 50 MG TABLET PO (09:33)
[2020-06-12] MEDS: diazePAM 5 MG TABLET PO ×3 (09:33→20:35)
[2020-06-12] MEDS: predniSONE 10 MG TABLET PO (09:33)
--- NOTE | 2020-06-12 10:04 | PC.NURSE ---
PT COMPLAINING OF PAIN FROM URINARY CATHETHER MADE AWARE , CATHETER REMOVED AT 1000 PT DTV AT 1600, PT ALSO REFUSED CAMERA FOR SAFTEY
[2020-06-12] MEDS: Albuterol/Iprat 2.5/0.5MG 3 ML AMPUL.NEB INHALE (10:19)
--- NOTE | 2020-06-12 10:34 | P.PNIM_ITS ---
Subjective Subjective Date of Service: 06/12/20 Interval History: Seen in follow fur sepsis due to pneumonia, no covid. Better, no shortness of breath, no fever Gen: no fever Resp: no sob, no cough CV: no chest, no PATRICK, no leg edema GI: No n/v, no abd pain Neuro: No confusion Physical Exam Vital Signs: Vital Signs: Last Vital Signs Temp 98.6 F 06/12/20 07:46 Pulse 95 06/12/20 07:46 Resp 16 06/12/20 07:46 BP 138/75 06/12/20 07:46 Pulse Ox 97 06/12/20 07:46 Body Mass Index 26.9 General: Alert and oriented Resp: CTA bilateral CVS: S1,S2,RRR GI: +BS, NT, no distention Skin: No rash Neuro: motor grossly intact Psych: appropriate affect Objective Data Current Medications Generic Name Dose Route Start Last Admin Trade Name Freq PRN Reason Stop Dose Admin Acetaminophen 650 mg 06/12/20 06:04 06/12/20 06:37 Acetaminophen 325 Mg Tablet PO 650 mg Q6H PRN Administration Pain and Fever Acetaminophen 650 mg 06/12/20 08:41 Acetaminophen 325 Mg Tablet PO Q6H PRN Pain Albuterol/Ipratropium 3 ml 06/11/20 18:57 06/12/20 10:19 Albuterol/Iprat 2.5/0.5mg 3 Ml Ampul.Neb INHALE 3 ml RQ4H PRN Administration Shortness of Breath Albuterol/Ipratropium 3 ml 06/12/20 08:41 Albuterol/Iprat 2.5/0.5mg 3 Ml Ampul.Neb INHALE Q4H PRN difficulyu Atenolol 50 mg 06/12/20 09:00 06/12/20 09:33 Atenolol 50 Mg Tablet PO 50 mg DAILY MARK Administration Protocol Atorvastatin Calcium 10 mg 06/12/20 09:00 06/12/20 09:33 Atorvastatin Calcium 10 Mg Tablet PO 10 mg DAILY MARK Administration Carbamazepine 200 mg 06/12/20 09:00 06/12/20 09:33 Carbamazepine 200 Mg Tablet PO 200 mg BID MARK Administration Diazepam 5 mg 06/12/20 09:00 06/12/20 09:33 Diazepam 5 Mg Tablet PO 5 mg TID MARK Administration Diazepam 10 mg 06/12/20 09:00 06/12/20 09:33 Diazepam 10 Mg Tablet PO 10 mg DAILY [facility] Administration Diltiazem HCl 300 mg 06/13/20 09:00 Diltiazem Hcl Cd 300 Mg Cap.Er.24h PO DAILY [facility] Protocol Doxepin HCl 100 mg 06/13/20 09:00 Doxepin Hcl 25 Mg Capsule PO DAILY [facility] Enoxaparin Sodium 40 mg 06/11/20 18:57 06/11/20 19:24 Enoxaparin Sodium 40 Mg/0.4 Ml Syringe SUBCUT 40 mg Q24H [facility] Administration Guaifenesin/Dextromethorphan 10 ml 06/11/20 18:57 Guaifenesin Dm 200/20/10 Ml 10 Ml Syrup PO Q6H PRN Cough Azithromycin 500 mg/ Sodium 250 mls @ 125 mls/hr 06/11/20 19:00 06/11/20 21:54 Chloride IV Infused Q24H [facility] Infusion Ceftriaxone Sodium 1 gm/ 50 mls @ 100 mls/hr 06/12/20 15:00 Sodium Chloride IV Q24H [facility] Insulin Glargine 25 unit 06/12/20 09:00 06/12/20 09:33 Insulin Glargine,Hum.Rec.Anlog 100 Unit/Ml 10 Ml Vial SUBCUT 25 unit DAILY [facility] Administration Insulin Human Lispro 0 unit 06/11/20 21:00 06/12/20 08:22 Insulin Lispro 100 Unit/Ml 3 Ml Vial SUBCUT 4 unit QIDACHS [facility] Administration Protocol Insulin Human Lispro 0 unit 06/12/20 11:30 Insulin Lispro 100 Unit/Ml 3 Ml Vial SUBCUT QIDACHS [facility] Protocol Omeprazole 20 mg 06/12/20 09:00 06/12/20 09:33 Omeprazole 20 Mg Capsule.Dr PO 20 mg DAILY [facility] Administration Ondansetron HCl 4 mg 06/11/20 18:57 Ondansetron Hcl 4 Mg/2 Ml Vial IVPUSH Q8H PRN Nausea and Vomiting Oxycodone HCl 5 mg 06/12/20 08:41 Oxycodone Hcl Immed Release 5 Mg Tablet PO Q6H PRN Pain Pharmacy Consult 1 each 06/11/20 16:48 Consult Rx Perform Med Rec MISCELLANE ONCE PRN Consult order Prednisone 10 mg 06/12/20 09:00 06/12/20 09:33 Prednisone 10 Mg Tablet PO 10 mg DAILY MARK Administration Quetiapine Fumarate 25 mg 06/12/20 09:00 06/12/20 09:33 Quetiapine Fumarate 25 Mg Tablet PO 25 mg BID MARK Administration Sodium Chloride 3 ml 06/12/20 00:00 06/12/20 08:23 0.9 % Sodium Chloride Flush 3 Ml Syringe IVFLUSH 3 ml QSHIFT MARK Administration Labs CBC & Chem 7: 06/12/20 07:52 06/12/20 07:52 Assessment and Plan (1) Sepsis: Status: Acute (2) Pneumonia: Status: Acute (3) Hyperlipidemia: Status: Acute (4) Diabetes: Status: Acute (5) Hyponatremia: Status: Acute Assessment and Plan: 75-year-old [facility] with a history of COPD on home o2, diabetes, hypertension, dyslipidemia, trigeminal neuralgia, chronic hyponatremia who was sent to the emergency department for hypoxia found to have pneumonia. Sepsis due to CAP met sepsis criteria with leukocytosis, tachycardia. Lactic acid within normal limits Covid, Flu, RSV negative Sepsis focused exam completed IV antibiotics for 1 or 2 more days P.r.n. breathing treatments Follow-up blood cultures Currently at baseline oxygen COPD/ chronic respiratory failure no acute exacerbation on chronic prednisone [address] negative. Afebrile Fioricet urinary retention, resolved, dc trotter diabetes ADA diet insulin sliding scale, POCs hyponatremia. Chronic At baseline anemia. Chronic H/ H at baseline med reconciliation pending at this time DVT prophylaxis- Lovenox Code status-full code
[2020-06-12 12:14] LABS: Glucose, Whole Blood 265 mg/dL (60-115)
[2020-06-12] MEDS: cefTRIAXone sodium 1 GM in 0.9 % Sodium Chloride 50 ML IV (14:52)
--- NOTE | 2020-06-12 15:29 | MHC.CM.PN ---
Met with patient. Agreeable to interview. PCP Dr. Negro. HCP proxy and alternate proxy have . Last HCP 2009. New HCP completed with patient and signed. HCP: Dmitri Porter, nephew ([phone]). [facility] [place] [facility] [place] [facility] [place] to return [facility].
[2020-06-12 16:21] LABS: Glucose, Whole Blood 149 mg/dL (60-115)
[2020-06-12] MEDS: Azithromycin 500 MG in 0.9 % Sodium Chloride 250 ML 125 MG IV (17:55)
[2020-06-12] MEDS: Enoxaparin Sodium 40 MG/0.4 ML SYRINGE SUBCUT (17:56)
[2020-06-12] MEDS: guaiFENesin DM 200/20/10 ML 10 ML SYRUP PO (19:16)
[2020-06-12 20:44] LABS: Glucose, Whole Blood 320 mg/dL (60-115)
[2020-06-13] VITALS (9 sets, daily range): BP systolic 118–187; BP diastolic 60–93; PULSE 66–119; RESP 18–20; TEMP 35.8–36.4; O2SAT 97–100
[2020-06-13] MEDS: Acetaminophen 325 MG TABLET 650 MG PO ×2 (02:28→08:18)
[2020-06-13] MEDS: oxyCODONE HCl Immed Release 5 MG TABLET PO ×3 (04:55→16:59)
[2020-06-13 07:33] LABS: Glucose, Whole Blood 196 mg/dL (60-115)
[2020-06-13] MEDS: Albuterol/Iprat 2.5/0.5MG 3 ML AMPUL.NEB INHALE ×5 (07:35→20:06)
[2020-06-13] MEDS: Doxepin HCl 25 MG CAPSULE 100 MG PO (07:56)
[2020-06-13] MEDS: dilTIAZem HCL CD 300 MG CAP.ER.24H PO (07:57)
[2020-06-13] MEDS: carBAMazepine 200 MG TABLET PO ×2 (07:58→21:02)
[2020-06-13] MEDS: Omeprazole 20 MG CAPSULE.DR PO (07:58)
[2020-06-13] MEDS: diazePAM 5 MG TABLET PO ×3 (07:59→16:57)
[2020-06-13] MEDS: atenoloL 50 MG TABLET PO (07:59)
[2020-06-13] MEDS: Atorvastatin Calcium 10 MG TABLET PO (07:59)
[2020-06-13] MEDS: QUEtiapine Fumarate 25 MG TABLET PO ×2 (07:59→21:02)
[2020-06-13] MEDS: predniSONE 10 MG TABLET PO (07:59)
[2020-06-13] MEDS: 0.9 % Sodium Chloride Flush 3 ML SYRINGE IVFLUSH ×3 (08:00→21:03)
[2020-06-13] MEDS: guaiFENesin DM 200/20/10 ML 10 ML SYRUP PO ×2 (08:02→16:59)
[2020-06-13] MEDS: Insulin Glargine,Hum.rec.anlog 100 UNIT/ML 10 ML VIAL 25 UNIT SUBCUT (08:13)
[2020-06-13] MEDS: Insulin Lispro 100 UNIT/ML 3 ML VIAL SUBCUT ×4 (08:14→21:03)
[2020-06-13 11:37] LABS: Glucose, Whole Blood 279 mg/dL (60-115)
--- NOTE | 2020-06-13 14:43 | HO.PM.IMPN ---
Subjective Subjective Date of Service: 06/13/20 Interval History: Pneumonia, COPD Review of Systems Patient still has shortness of breath, cough Denies any chest pain or abdominal pain or urinary complaints or fever. Physical Exam Vital Signs: Vital Signs: Last Vital Signs Temp 97.0 F 06/13/20 11:23 Pulse 87 06/13/20 11:23 Resp 20 06/13/20 11:23 BP 140/60 H 06/13/20 11:23 Pulse Ox 97 06/13/20 11:23 Body Mass Index 26.9 Physical exam: Still somewhat short of breath HEENT: Eyes anicteric, no discharge. Cvs: [id number], [id number] , no murmur res: clear to auscultation ,has wheezing abd: no rebound or guarding ,nt, bs present. ext pulses present , no cyanosis neuro: axo3 , nonfocal. Objective Data Current Medications Generic Name Dose Route Start Last Admin Trade Name Freq PRN Reason Stop Dose Admin Acetaminophen 650 mg 06/12/20 06:04 06/13/20 02:28 Acetaminophen 325 Mg Tablet PO 650 mg Q6H PRN Administration Pain and Fever Albuterol/Ipratropium 3 ml 06/11/20 18:57 06/13/20 11:12 Albuterol/Iprat 2.5/0.5mg 3 Ml Ampul.Neb INHALE 3 ml RQ4H PRN Administration Shortness of Breath Albuterol/Ipratropium 3 ml 06/13/20 12:00 06/13/20 13:07 Albuterol/Iprat 2.5/0.5mg 3 Ml Ampul.Neb INHALE Not Given RQ4H WHILE AWAKE MARK Atenolol 50 mg 06/12/20 09:00 06/13/20 07:59 Atenolol 50 Mg Tablet PO 50 mg DAILY MARK Administration Protocol Atorvastatin Calcium 10 mg 06/12/20 09:00 06/13/20 07:59 Atorvastatin Calcium 10 Mg Tablet PO 10 mg DAILY MARK Administration Carbamazepine 200 mg 06/12/20 09:00 06/13/20 07:58 Carbamazepine 200 Mg Tablet PO 200 mg BID MARK Administration Diazepam 5 mg 06/12/20 09:00 06/13/20 07:59 Diazepam 5 Mg Tablet PO 5 mg TID MARK Administration Diazepam 10 mg 06/12/20 09:00 06/13/20 10:27 Diazepam 10 Mg Tablet PO Not Given DAILY MARK Diltiazem HCl 300 mg 06/13/20 09:00 06/13/20 07:57 Diltiazem Hcl Cd 300 Mg Cap.Er.24h PO 300 mg DAILY MARK Administration Protocol Doxepin HCl 100 mg 06/13/20 09:00 06/13/20 07:56 Doxepin Hcl 25 Mg Capsule PO 100 mg DAILY MARK Administration Enoxaparin Sodium 40 mg 06/11/20 18:57 06/12/20 17:56 Enoxaparin Sodium 40 Mg/0.4 Ml Syringe SUBCUT 40 mg Q24H MARK Administration Guaifenesin/Dextromethorphan 10 ml 06/11/20 18:57 06/13/20 08:02 Guaifenesin Dm 200/20/10 Ml 10 Ml Syrup PO 10 ml Q6H PRN Administration Cough Azithromycin 500 mg/ Sodium 250 mls @ 125 mls/hr 06/11/20 19:00 06/12/20 20:18 Chloride IV Infused Q24H MARK Infusion Ceftriaxone Sodium 1 gm/ 50 mls @ 100 mls/hr 06/12/20 15:00 06/12/20 15:58 Sodium Chloride IV Infused Q24H MARK Infusion Insulin Glargine 25 unit 06/12/20 09:00 06/13/20 08:13 Insulin Glargine,Hum.Rec.Anlog 100 Unit/Ml 10 Ml Vial SUBCUT 25 unit DAILY MARK Administration Insulin Human Lispro 0 unit 06/11/20 21:00 06/13/20 12:00 Insulin Lispro 100 Unit/Ml 3 Ml Vial SUBCUT 6 unit QIDACHS [facility] Administration Protocol Omeprazole 20 mg 06/12/20 09:00 06/13/20 07:58 Omeprazole 20 Mg Capsule.Dr PO 20 mg DAILY MARK Administration Ondansetron HCl 4 mg 06/11/20 18:57 Ondansetron Hcl 4 Mg/2 Ml Vial IVPUSH Q8H PRN Nausea and Vomiting Oxycodone HCl 5 mg 06/12/20 08:41 06/13/20 11:12 Oxycodone Hcl Immed Release 5 Mg Tablet PO 5 mg Q6H PRN Administration Pain Pharmacy Consult 1 each 06/11/20 16:48 Consult Rx Perform Med Rec MISCELLANE ONCE PRN Consult order Prednisone 10 mg 06/12/20 09:00 06/13/20 07:59 Prednisone 10 Mg Tablet PO 10 mg DAILY MARK Administration Quetiapine Fumarate 25 mg 06/12/20 09:00 06/13/20 07:59 Quetiapine Fumarate 25 Mg Tablet PO 25 mg BID MARK Administration Sodium Chloride 3 ml 06/12/20 00:00 06/13/20 08:00 0.9 % Sodium Chloride Flush 3 Ml Syringe IVFLUSH 3 ml QSHIFT MARK Administration Labs CBC & Chem 7: 06/12/20 07:52 06/12/20 07:52 Microbiology Microbiology Results: Microbiology 06/11/20 Unknown Blood - Venous Blood Culture - Preliminary No growth after 24 hours. 06/11/20 12:35 Blood - Venous Blood Culture - Preliminary No growth after 24 hours. Assessment and Plan (1) Pneumonia: Status: Acute (2) COPD (chronic obstructive pulmonary disease): Status: Acute Assessment and Plan: 75-year-old [employer] Home resident with a history of COPD on home o2, diabetes, hypertension, dyslipidemia, trigeminal neuralgia, chronic hyponatremia who was sent to the emergency department for hypoxia found to have pneumonia. 1.Sepsis due to CAP met sepsis criteria with leukocytosis, tachycardia on admission, which seems to be improving. Lactic acid within normal limits Covid, Flu, RSV negative IV ceftriaxone and azithromycin day 2. P.r.n. breathing treatments Follow-up blood cultures neg@ 48 hrs. Currently at baseline oxygen 2. COPD/ chronic respiratory failure Has wheezing Will add schedule nebs, p.r.n. nebs continue, and continue p.o. prednisone if does not improve then may need to switch to IV Solu-Medrol. 3. headache brain CT negative. Afebrile Fioricet 4. urinary retention, resolved. 5. diabetes: fs in 190-200's range. ADA diet insulin sliding scale, POCs 6. hyponatremia. Chronic- improving to 131. At baseline 7. anemia. Chronic H/ H at baseline DVT prophylaxis- Lovenox
[2020-06-13] MEDS: cefTRIAXone sodium 1 GM in 0.9 % Sodium Chloride 50 ML IV (14:57)
[2020-06-13 16:13] LABS: Glucose, Whole Blood 276 mg/dL (60-115)
[2020-06-13] MEDS: Enoxaparin Sodium 40 MG/0.4 ML SYRINGE SUBCUT (16:57)
[2020-06-13] MEDS: Azithromycin 500 MG in 0.9 % Sodium Chloride 250 ML 125 MG IV (16:58)
[2020-06-13 20:50] LABS: Glucose, Whole Blood 233 mg/dL (60-115)
[2020-06-13] MEDS: diazePAM 10 MG TABLET PO (21:02)
[2020-06-14] VITALS (10 sets, daily range): BP systolic 145–167; BP diastolic 63–82; PULSE 85–100; RESP 18–20; TEMP 36.3–37; O2SAT 97–100
[2020-06-14] MEDS: Acetaminophen 325 MG TABLET 650 MG PO ×2 (06:07→12:39)
[2020-06-14] MEDS: Albuterol/Iprat 2.5/0.5MG 3 ML AMPUL.NEB INHALE ×4 (07:18→21:24)
[2020-06-14 08:04] LABS: Glucose, Whole Blood 152 mg/dL (60-115)
[2020-06-14] MEDS: Doxepin HCl 25 MG CAPSULE 100 MG PO (08:57)
[2020-06-14] MEDS: diazePAM 5 MG TABLET PO ×3 (08:58→17:01)
[2020-06-14] MEDS: Atorvastatin Calcium 10 MG TABLET PO (08:58)
[2020-06-14] MEDS: dilTIAZem HCL CD 300 MG CAP.ER.24H PO (08:58)
[2020-06-14] MEDS: atenoloL 50 MG TABLET PO (08:58)
[2020-06-14] MEDS: Omeprazole 20 MG CAPSULE.DR PO (08:58)
[2020-06-14] MEDS: carBAMazepine 200 MG TABLET PO ×2 (08:59→20:43)
[2020-06-14] MEDS: QUEtiapine Fumarate 25 MG TABLET PO ×2 (08:59→20:43)
[2020-06-14] MEDS: predniSONE 10 MG TABLET PO (08:59)
[2020-06-14] MEDS: Insulin Glargine,Hum.rec.anlog 100 UNIT/ML 10 ML VIAL 25 UNIT SUBCUT (09:02)
[2020-06-14] MEDS: 0.9 % Sodium Chloride Flush 3 ML SYRINGE IVFLUSH ×3 (09:03→20:43)
[2020-06-14] MEDS: Insulin Lispro 100 UNIT/ML 3 ML VIAL SUBCUT ×4 (09:03→20:43)
[2020-06-14] MEDS: guaiFENesin DM 200/20/10 ML 10 ML SYRUP PO (09:08)
[2020-06-14] MEDS: oxyCODONE HCl Immed Release 5 MG TABLET PO ×3 (09:08→23:44)
[2020-06-14 12:18] LABS: Glucose, Whole Blood 368 mg/dL (60-115)
--- NOTE | 2020-06-14 12:59 | MHC.CM.PN ---
NURSE BUNG DROPPER NOTE ELECTRONIC MEDICAL RECORD REVIEWED ALONG WITH CASE DISCUSSED WITH STAFF NURSE, PER DOCUMENTATION PATIENT WITH SEPSIS SECONDARY TO PNEUMONIA, COPD WITH PERSISTENT COUGH AND SHORTNESS OF BREATH PATIENT IS FROM THE [facility] (staying ON THE [address] ) CVID\FLU/RSV ARE ALL NEGATIVE ) PLAN IS TO CONTINUES CURRENT MEDICATIONS IV CEFTRIAXONE,IV AZITHROMYCIN ADDED SCHEDULED NEBULIZER PRN NEBULIZER TO BE CONTINUED AND CONTINUE ORAL PREDNISOME CONTINUE INSULIN SLIDING SCALE .COVERAGE DISCHARGE PLAN- RETURN BACK T THE [address] WHERE HE HAS BEEN STAYING
[2020-06-14] MEDS: cefTRIAXone sodium 1 GM in 0.9 % Sodium Chloride 50 ML IV (14:31)
--- NOTE | 2020-06-14 15:00 | P.PNIM_ITS ---
Subjective Subjective Date of Service: 06/14/20 Interval History: copd, pneumonia Review of Systems Patient still feeling weak, and short of breath were somewhat better than yesterday Denies any abdominal pain fever chills any complaints weakness or numbness or any urinary complaints. Physical Exam Vital Signs: Vital Signs: Last Vital Signs Temp 98.3 F 06/14/20 12:00 Pulse 100 06/14/20 12:00 Resp 20 06/14/20 12:00 BP 165/63 H 06/14/20 12:00 Pulse Ox 99 06/14/20 07:58 Body Mass Index 26.9 Physical exam: Constitutional: Seems tired and weak Cvs: rrr, [id number] , no murmur res: Breath sounds are still diminished, has some wheezing abd: no rebound or guarding ,nt, bs present. ext pulses present , no cyanosis neuro: axo3 , nonfocal. Objective Data Current Medications Generic Name Dose Route Start Last Admin Trade Name Freq PRN Reason Stop Dose Admin Acetaminophen 650 mg 06/12/20 06:04 06/14/20 12:39 Acetaminophen 325 Mg Tablet PO 650 mg Q6H PRN Administration Pain and Fever Albuterol/Ipratropium 3 ml 06/11/20 18:57 06/13/20 11:12 Albuterol/Iprat 2.5/0.5mg 3 Ml Ampul.Neb INHALE 3 ml RQ4H PRN Administration Shortness of Breath Albuterol/Ipratropium 3 ml 06/13/20 12:00 06/14/20 11:04 Albuterol/Iprat 2.5/0.5mg 3 Ml Ampul.Neb INHALE 3 ml RQ4H WHILE AWAKE MARK Administration Atenolol 50 mg 06/12/20 09:00 06/14/20 08:58 Atenolol 50 Mg Tablet PO 50 mg DAILY MARK Administration Protocol Atorvastatin Calcium 10 mg 06/12/20 09:00 06/14/20 08:58 Atorvastatin Calcium 10 Mg Tablet PO 10 mg DAILY MARK Administration Carbamazepine 200 mg 06/12/20 09:00 06/14/20 08:59 Carbamazepine 200 Mg Tablet PO 200 mg BID MARK Administration Diazepam 5 mg 06/13/20 17:00 06/14/20 12:39 Diazepam 5 Mg Tablet PO 5 mg TID@0800,1200,1700 MARK Administration Diazepam 10 mg 06/13/20 21:00 06/13/20 21:02 Diazepam 10 Mg Tablet PO 10 mg DAILY@2100 MARK Administration Diltiazem HCl 300 mg 06/13/20 09:00 06/14/20 08:58 Diltiazem Hcl Cd 300 Mg Cap.Er.24h PO 300 mg DAILY MARK Administration Protocol Doxepin HCl 100 mg 06/13/20 09:00 06/14/20 08:57 Doxepin Hcl 25 Mg Capsule PO 100 mg DAILY MARK Administration Enoxaparin Sodium 40 mg 06/11/20 18:57 06/13/20 16:57 Enoxaparin Sodium 40 Mg/0.4 Ml Syringe SUBCUT 40 mg Q24H MARK Administration Guaifenesin/Dextromethorphan 10 ml 06/11/20 18:57 06/14/20 09:08 Guaifenesin Dm 200/20/10 Ml 10 Ml Syrup PO 10 ml Q6H PRN Administration Cough Azithromycin 500 mg/ Sodium 250 mls @ 125 mls/hr 06/11/20 19:00 06/13/20 20:33 Chloride IV Infused Q24H MARK Infusion Ceftriaxone Sodium 1 gm/ 50 mls @ 100 mls/hr 06/12/20 15:00 06/14/20 14:31 Sodium Chloride IV 100 mls/hr Q24H MARK Administration Insulin Glargine 25 unit 06/12/20 09:00 06/14/20 09:02 Insulin Glargine,Hum.Rec.Anlog 100 Unit/Ml 10 Ml Vial SUBCUT 25 unit DAILY MARK Administration Insulin Human Lispro 0 unit 06/11/20 21:00 06/14/20 12:38 Insulin Lispro 100 Unit/Ml 3 Ml Vial SUBCUT 10 unit QIDACHS [facility] Administration Protocol Omeprazole 20 mg 06/12/20 09:00 06/14/20 08:58 Omeprazole 20 Mg Capsule.Dr PO 20 mg DAILY MARK Administration Ondansetron HCl 4 mg 06/11/20 18:57 Ondansetron Hcl 4 Mg/2 Ml Vial IVPUSH Q8H PRN Nausea and Vomiting Oxycodone HCl 5 mg 06/12/20 08:41 06/14/20 09:08 Oxycodone Hcl Immed Release 5 Mg Tablet PO 5 mg Q6H PRN Administration Pain Pharmacy Consult 1 each 06/11/20 16:48 Consult Rx Perform Med Rec MISCELLANE ONCE PRN Consult order Prednisone 10 mg 06/12/20 09:00 06/14/20 08:59 Prednisone 10 Mg Tablet PO 10 mg DAILY MARK Administration Quetiapine Fumarate 25 mg 06/12/20 09:00 06/14/20 08:59 Quetiapine Fumarate 25 Mg Tablet PO 25 mg BID MARK Administration Sodium Chloride 3 ml 06/12/20 00:00 06/14/20 09:03 0.9 % Sodium Chloride Flush 3 Ml Syringe IVFLUSH 3 ml QSHIFT MARK Administration Labs CBC & Chem 7: 06/12/20 07:52 06/12/20 07:52 Microbiology Microbiology Results: Microbiology 06/11/20 Unknown Blood - Venous Blood Culture - Preliminary No growth after 48 hours. 06/11/20 12:35 Blood - Venous Blood Culture - Preliminary No growth after 48 hours. Assessment and Plan (1) Pneumonia: Status: Acute (2) COPD (chronic obstructive pulmonary disease): Status: Acute Assessment and Plan: 75-year-old [employer] Home resident with a history of COPD on home o2, diabetes, hypertension, dyslipidemia, trigeminal neuralgia, chronic hyponatremia who was sent to the emergency department for hypoxia found to have pneumonia. 1.Sepsis due to CAP met sepsis criteria with leukocytosis, tachycardia on admission, which seems to be improving. Lactic acid within normal limits Covid, Flu, RSV negative IV ceftriaxone and azithromycin day 3. P.r.n. breathing treatments Follow-up blood cultures neg@ 48 hrs. Currently at baseline oxygen 2. COPD/ chronic respiratory failure Has wheezing Will add schedule nebs, p.r.n. nebs continue,will switch to iv solumedrol. 3. headache brain CT negative. Afebrile Fioricet 4. urinary retention, resolved. 5. diabetes:uncontrolled, fs in 200-300's range. ADA diet Continue Lantus and adjusted insulin sliding scale, POCs 6. hyponatremia. Chronic- improving to 131. At baseline 7. anemia. Chronic H/ H at baseline DVT prophylaxis- Lovenox
[2020-06-14 16:25] LABS: Glucose, Whole Blood 175 mg/dL (60-115)
[2020-06-14] MEDS: Enoxaparin Sodium 40 MG/0.4 ML SYRINGE SUBCUT (18:42)
[2020-06-14] MEDS: Azithromycin 500 MG in 0.9 % Sodium Chloride 250 ML 125 MG IV (18:44)
[2020-06-14 20:15] LABS: Glucose, Whole Blood 260 mg/dL (60-115)
[2020-06-14] MEDS: diazePAM 10 MG TABLET PO (20:43)
[2020-06-15] VITALS (10 sets, daily range): BP systolic 131–168; BP diastolic 68–99; PULSE 70–118; RESP 18–21; TEMP 36.2–37.2; O2SAT 96–100
[2020-06-15] MEDS: Albuterol/Iprat 2.5/0.5MG 3 ML AMPUL.NEB INHALE ×2 (07:46→11:15)
[2020-06-15] MEDS: Insulin Lispro 100 UNIT/ML 3 ML VIAL SUBCUT ×2 (08:07→12:03)
[2020-06-15] MEDS: Insulin Glargine,Hum.rec.anlog 100 UNIT/ML 10 ML VIAL 25 UNIT SUBCUT (08:07)
[2020-06-15] MEDS: QUEtiapine Fumarate 25 MG TABLET PO (08:17)
[2020-06-15] MEDS: dilTIAZem HCL CD 300 MG CAP.ER.24H PO (08:17)
[2020-06-15] MEDS: carBAMazepine 200 MG TABLET PO (08:18)
[2020-06-15] MEDS: Omeprazole 20 MG CAPSULE.DR PO (08:18)
[2020-06-15] MEDS: Doxepin HCl 25 MG CAPSULE 100 MG PO (08:18)
[2020-06-15] MEDS: atenoloL 50 MG TABLET PO (08:18)
[2020-06-15] MEDS: 0.9 % Sodium Chloride Flush 3 ML SYRINGE IVFLUSH (08:19)
[2020-06-15] MEDS: Atorvastatin Calcium 10 MG TABLET PO (08:19)
[2020-06-15] MEDS: diazePAM 5 MG TABLET PO ×2 (08:19→12:03)
[2020-06-15] MEDS: oxyCODONE HCl Immed Release 5 MG TABLET PO ×2 (08:23→14:22)
[2020-06-15] MEDS: Acetaminophen 325 MG TABLET 650 MG PO ×2 (08:23→14:21)
[2020-06-15 08:46] LABS: Glucose, Whole Blood 195 mg/dL (60-115)
[2020-06-15 12:19] LABS: Glucose, Whole Blood 374 mg/dL (60-115)
--- NOTE | 2020-06-15 12:33 | PC.NURSE ---
Pt POC 374 at 11:30. Dr. Bailon made aware, sliding scale adjusted. 14 units of humalog administered per new sliding scale.
--- NOTE | 2020-06-15 14:09 | MHC.CM.PN ---
Per MD rounds, pt will be d/c today on po antibiotics and return to [facility].
--- NOTE | 2020-06-15 15:09 | MHC.CM.PN ---
Pt is discharged. Will return to [facility] via wheelchair. RN aware.
[2020-06-15] MEDS: Azithromycin 500 MG TABLET PO (15:14)
--- NOTE | 2020-06-16 12:45 | P.DS_ITS ---
DS: Providers Provider Date of admission: 06/11/20 17:02 Date of discharge: 06/15/20 Primary care physician: Outside Physician DS: Diagnosis Discharge Diagnosis (1) Pneumonia: Status: Acute (2) COPD (chronic obstructive pulmonary disease): Status: Acute DS: Medications Discharge Medications Home Medications: Home Medications Medication Instructions Recorded Confirmed Lantus U-100 Insulin 25 unit SUBCUT BEDTIME 06/11/20 06/13/20 acetaminophen [Tylenol] 325 mg PO 0000,0600,1200,1800 06/11/20 06/13/20 atenolol 50 mg PO DAILY 06/11/20 06/11/20 atorvastatin [Lipitor] 10 mg PO DAILY@1700 06/11/20 06/13/20 carbamazepine [Tegretol] 200 mg PO BID@0800,1600 06/11/20 06/13/20 diazepam [Valium] 5 mg PO TID@0800,1200,1700 06/11/20 06/13/20 diazepam [Valium] 10 mg PO DAILY@209906/11/20 06/13/20 doxepin 100 mg PO DAILY@209906/11/20 06/13/20 insulin lispro [Humalog U-100 0 unit SUBCUT TID@0730,1100,1600 06/11/20 06/13/20 Insulin] lidocaine [Salonpas (lidocaine)] 1 patch TOPICAL DAILY@0600 06/11/20 06/13/20 metformin 1,000 mg PO BID@0900,1700 06/11/20 06/13/20 omeprazole 20 mg PO DAILY@1600 06/11/20 06/13/20 oxycodone 5 mg PO 0000,0600,1200,1800 06/11/20 06/13/20 prednisone 10 mg PO DAILY@0800 06/11/20 06/13/20 quetiapine [Seroquel] 25 mg PO BID@1700,2100 06/11/20 06/13/20 acetaminophen 650 mg PO TID@0800,1400,2000 06/13/20 06/13/20 albuterol sulfate 2.5 mg INHALATION Q4H PRN 06/13/20 06/13/20 artificial tear(lfito-ake-yvg) 1 drp OPHTHALMIC (EYE) Q6H PRN 06/13/20 06/13/20 bisacodyl 10 mg PO DAILY PRN 06/13/20 06/13/20 diltiazem HCl 300 mg PO DAILY@1000 06/13/20 06/13/20 docusate sodium 100 mg PO BID@0900,1700 06/13/20 06/13/20 fluticasone propionate 2 spray INTRANASAL DAILY@2100 06/13/20 06/13/20 guaifenesin 100 mg PO Q4H PRN 06/13/20 06/13/20 ipratropium-albuterol 3 ml INHALATION 0600,1000,1400,1800 06/13/20 06/13/20 magnesium hydroxide [Milk of 30 ml PO DAILY PRN 06/13/20 06/13/20 Magnesia] nitroglycerin 0.4 mg SUBLINGUAL Q5M PRN 06/13/20 06/13/20 polyethylene glycol 3350 17 g PO DAILY 06/13/20 06/13/20 sodium chloride 1 spray INTRANASAL Q1H PRN 06/13/20 06/13/20 Previous Rx's Medication Instructions Recorded azithromycin [Zithromax] See Rx Instructions PO .COMPLEX #3 06/15/20 tab cefuroxime axetil 500 mg PO BID #10 tab 06/15/20 prednisone 40 mg PO DAILY #8 tab 06/15/20 CTA:IMPRESSION: No evidence for pulmonary embolism. Nonspecific patchy opacity in the right middle lobe may reflect atelectasis but cannot exclude evolving infiltrate or pneumonia new compared to December 2019. Posterior bilateral opacities likely atelectasis DS: Summary Hospital Course Hospital Course: 75-year-old [employer] [facility] resident who was sent to the emergency department for evaluation of shortness of breath. Patient has a history of oxygen dependent COPD but was found to be hypoxic. It was determined that his oxygen tank was empty but he was sent to the emergency department for evaluation. The patient reports shortness of breath and a dry cough which he thinks began today. He is also complaining of a headache. Lab work revealed hyponatremia with a sodium of 127 which is chronic for the patient. He had leukocytosis of 21.6. He was afebrile, tachycardic. Chest x-ray showed possible pneumonia. He underwent CTA which was negative for pulmonary embolism but showed nonspecific patchy opacity in the right middle lobe which could represent involving infiltrate. He was treated with IV antibiotics. In addition his abdomen was noted to be distended and a Yu catheter was placed. He underwent a CAT scan of his abdomen which was unremarkable. 1.Sepsis due to CAP met sepsis criteria with leukocytosis, tachycardia on admission, which seems to be improving. Lactic acid within normal limits Covid, Flu, RSV negative. Follow-up blood cultures neg@ 48 hrs. Patient was switched to p.o. Ceftin and azithromycin upon discharge. 2. COPD/ chronic respiratory failure Given nebs, steroids, antibiotics: Seems to be improved: Switched to p.o. steroids upon discharge. 3. urinary retention, resolved. 4. diabetes:uncontrolled, fs in 200-300's range. Probably related to steroid use. ADA diet Continue current insulin regimen,moniter fs, if needed please adjust lantus . 5. hyponatremia. Chronic- improving to 131-132 range. Monitor BMP out patiently and further management as per PCP. 6. anemia. Chronic H/ H at baseline. CBC and further management out patiently. 7. right inguninal hernia : found on CT abdomen, patient denies any abdominal pain ,the right inguinal area seems soft and passing gases and bowels as per the patient Continue to monitor outpatient with PCP. Above management discussed with the patient in detail length she understand and in agreement with the above plan, time spent 50 minutes and 50% time spent on counseling. Significant findings: As above. Procedures performed: None. Treatment and response: As above. Complications: None. Time Spent with Patient Time attestation: Total time spent providing and/or coordinating discharge services: Physical Exam Vital Signs: Vital Signs: Last Vital Signs Temp 98.0 F 06/15/20 15:30 Pulse 70 06/15/20 15:30 Resp 18 06/15/20 15:30 BP 140/76 H 06/15/20 15:30 Pulse Ox 100 06/15/20 15:30 Body Mass Index 26.9 Physical exam: Constitutional: Not in distress, denies any new symptoms. Cvs: rrr, [id number] , no murmur res: good air entry , no rales or wheezing abd: no rebound or guarding ,nt, bs present. ext pulses present , no cyanosis neuro: axo3 , nonfocal. DS: Data Data Completed and Pending Labs on day of discharge: 11/26/20 SARS-CoV2/FLU/RSV Stat 06/11/20 12:20 0.9 % Sodium Chloride [Ns] 500 ml IV 1,000 mls/hr ABG (RT) ONCE 06/11/20 12:21 IV insert/maintain .Now XR chest 1V Stat 06/11/20 12:22 ECG 12 lead EKG Stat EKG Documentation DIRECTED CT head/brain wo con Stat 06/11/20 12:23 Albuterol Sulfate [Ventolin] 4 puff INHALE ONCE ONE methylPREDNISolone Sod Succ/PF [SOLU-MedroL] 125 mg IVPUSH ONCE ONE 06/11/20 12:34 CT abdomen pelvis wo con Stat 06/11/20 12:35 B Type Natriuretic Peptide Stat Complete Blood Count Auto Diff Stat Comprehensive Met. Panel Stat D Dimer Stat Lactate Dehydrogenase Stat Lactic Acid Stat Partial Thromboplastin Time Stat Procalcitonin Stat Prothrombin Time INR Stat SLIDE REVIEW Stat Troponin-I High Sensitivity Stat 06/11/20 13:33 Arterial Blood Gas Routine UA ClnCatch+Micro w/rflx Cult Stat 06/11/20 14:02 CT angio chest PE protocol Stat cefTRIAXone sodium [Rocephin] 1 gm 0.9 % Sodium Chloride [Ns] 50 ml IV ONCE 06/11/20 14:38 cefTRIAXone sodium [Rocephin] 1 gm .ROUTE .STK-MED ONE 06/11/20 15:00 iohexoL 350 MG/ML [Omnipaque 350 MG/ML] 75 ml IV ONCE ONE 06/11/20 15:46 Piperacillin Sodium/Tazobactam [Zosyn] 3.375 gm 0.9 % Sodium Chloride [Ns] 50 ml IV ONCE vancomycin HCL 1,000 mg 0.9 % Sodium Chloride [Ns] 250 ml IV ONCE 06/11/20 16:13 Piperacillin Sodium/Tazobactam [Zosyn] 3.375 gm IV .STK-MED ONE 06/11/20 16:48 Consult Rx Perform Med Rec 1 each MISCELLANE ONCE PRN 06/11/20 16:52 Transfer Order Routine 06/11/20 16:53 Code Status Routine 06/11/20 17:08 vancomycin HCL 1,000 mg .ROUTE .STK-MED ONE 06/11/20 18:57 Albuterol/Iprat 2.5/0.5MG 3 ML [Duoneb] 3 ml INHALE RQ4H PRN Butalb/Acetamin/Caff 50/325/40 [Fioricet] 1 tab PO ONCE ONE Enoxaparin Sodium [Lovenox] 40 mg SUBCUT Q24H guaiFENesin DM 200/20/10 ML [Robitussin DM 200/20/10 ML] 10 ml PO Q6H PRN ondansetron HCL [Zofran] 4 mg IVPUSH Q8H PRN 06/11/20 18:57 Glucose, blood poc QIDACHS IV insert/maintain Q4HR Intake and Output QSHIFTE Out of bed with assist NEEDED Oxygen administration Nasal Cannula 2 lpm Vital Signs QSHIFT 06/11/20 19:00 Azithromycin [Zithromax] 500 mg 0.9 % Sodium Chloride [Ns] 250 ml IV Q24H 06/11/20 19:29 Azithromycin [Zithromax] 500 mg IV .STK-MED ONE 06/11/20 19:38 Azithromycin [Zithromax] 500 mg IV .STK-MED ONE 06/11/20 20:50 Glucose, Whole Blood Routine 06/11/20 20:58 Insulin Lispro [Humalog] 10 unit SUBCUT ONCE ONE 06/11/20 21:00 Insulin Lispro [Humalog] See Protocol SUBCUT QIDACHS 06/12/20 00:00 0.9 % Sodium Chloride Flush [NS Flush] 3 ml IVFLUSH QSHIFT 06/12/20 06:04 Acetaminophen [Tylenol] 650 mg PO Q6H PRN oxyCODONE HCl Immed Release [Roxicodone] 5 mg PO ONCE ONE 06/12/20 07:44 Glucose, Whole Blood Routine 06/12/20 07:52 Basic Metabolic Panel DAILY@0600 Complete Blood Count Auto Diff DAILY@0600 SLIDE REVIEW Routine 06/12/20 08:41 Acetaminophen [Tylenol] 650 mg PO Q6H PRN Albuterol/Iprat 2.5/0.5MG 3 ML [Duoneb] 3 ml INHALE Q4H PRN oxyCODONE HCl Immed Release [Roxicodone] 5 mg PO Q6H PRN 06/12/20 09:00 Atorvastatin Calcium [Lipitor] 10 mg PO DAILY Insulin Glargine,Hum.rec.anlog [Lantus] 25 unit SUBCUT DAILY Omeprazole [PriLOSEC] 20 mg PO DAILY QUEtiapine Fumarate [SEROquel] 25 mg PO BID atenoloL [Tenormin] 50 mg PO DAILY carBAMazepine [TEGretol] 200 mg PO BID diazePAM [Valium] 10 mg PO DAILY diazePAM [Valium] 5 mg PO TID predniSONE 10 mg PO DAILY 06/12/20 11:30 Insulin Lispro [Humalog] See Protocol SUBCUT QIDACHS 06/12/20 11:58 Glucose, Whole Blood Routine 06/12/20 14:08 cefTRIAXone sodium [Rocephin] 1 gm .ROUTE .[facility] 06/12/20 15:00 cefTRIAXone sodium [Rocephin] 1 gm 0.9 % Sodium Chloride [Ns] 50 ml IV Q24H 06/12/20 16:17 Glucose, Whole Blood Routine 06/12/20 17:49 Azithromycin [Zithromax] 500 mg IV .[facility] 06/12/20 20:26 Glucose, Whole Blood Routine 06/13/20 07:23 Glucose, Whole Blood Routine 06/13/20 09:00 Doxepin HCl [Sinequan] 100 mg PO DAILY dilTIAZem HCL CD [Cardizem CD] 300 mg PO DAILY 06/13/20 11:21 Glucose, Whole Blood Routine 06/13/20 12:00 Albuterol/Iprat 2.5/0.5MG 3 ML [Duoneb] 3 ml INHALE RQ4H WHILE AWAKE 06/13/20 14:49 cefTRIAXone sodium [Rocephin] 1 gm .ROUTE .[facility] 06/13/20 16:09 Glucose, Whole Blood Routine 06/13/20 16:53 Azithromycin [Zithromax] 500 mg IV .[facility] 06/13/20 17:00 diazePAM [Valium] 5 mg PO TID@0800,1200,1700 06/13/20 20:45 Glucose, Whole Blood Routine 06/13/20 21:00 diazePAM [Valium] 10 mg PO DAILY@2100 diazePAM [Valium] 10 mg PO DAILY@2100 06/14/20 07:57 Glucose, Whole Blood Routine 06/14/20 12:09 Glucose, Whole Blood Routine 06/14/20 14:27 cefTRIAXone sodium [Rocephin] 1 gm .ROUTE .STK-MED ONE 06/14/20 16:22 Glucose, Whole Blood Routine 06/14/20 17:00 methylPREDNISolone Sod Succ/PF [SOLU-MedroL] 40 mg IVPUSH Q12H 06/14/20 18:34 Azithromycin [Zithromax] 500 mg IV .STK-MED ONE 06/14/20 20:10 Glucose, Whole Blood Routine 06/15/20 07:48 Glucose, Whole Blood Routine 06/15/20 11:30 Glucose, Whole Blood Routine 06/15/20 14:51 Azithromycin [Zithromax] 500 mg PO ONCE ONE cefUROXime axetiL [Ceftin] 500 mg PO ONCE ONE 06/16/20 09:00 Insulin Glargine,Hum.rec.anlog [Lantus] 30 unit SUBCUT DAILY Insulin Glargine,Hum.rec.anlog [Lantus] 5 unit SUBCUT DAILY Laboratory Last Values WBC 18.4 X10*3/uL (4.8-10.8) H 06/12/20 07:52 RBC 3.59 X10*6/uL (4.60-5.80) L 06/12/20 07:52 Hgb 9.2 g/dl (14.0-18.0) L 06/12/20 07:52 Hct 28.2 % (42-52) L 06/12/20 07:52 MCV 78.6 fL (80-98) L 06/12/20 07:52 MCH 25.6 pg (27.0-33.0) L 06/12/20 07:52 MCHC 32.6 g/dl (31.0-36.0) 06/12/20 07:52 RDW 14.0 % (11.0-16.0) 06/12/20 07:52 Plt Count 300 X10*3/uL (160-400) 06/12/20 07:52 MPV 8.2 fL (9.4-12.4) L 06/12/20 07:52 Immature Gran % (Auto) 1.5 % (0.0-0.4) H 06/12/20 07:52 Neut % (Auto) 88.7 % (45-73) H 06/12/20 07:52 Lymph % (Auto) 3.1 % (20-40) L 06/12/20 07:52 [place] % (Auto) 6.4 % (2-11) 06/12/20 07:52 Eos % (Auto) 0.1 % (0-4) 06/12/20 07:52 Baso % (Auto) 0.2 % (0-2) 06/12/20 07:52 Lymph # (Auto) 0.6 X10*3/uL (1.2-4.9) L 06/12/20 07:52 [place] # (Auto) 1.2 X10*3/uL (0.1-1.2) 06/12/20 07:52 Eos # (Auto) 0.0 X10*3/uL (0.0-0.4) 06/12/20 07:52 Baso # (Auto) 0.0 X10*3/uL (0.0-0.2) 06/12/20 07:52 Abs Immat Gran (auto) 0.27 X10*3/uL (0.00-0.03) H 06/12/20 07:52 Absolute Neuts (auto) 16.3 X10*3/uL (2.0-8.3) H 06/12/20 07:52 Absolute Nucleated RBC 0.000 X10*3/uL (0.0-0.012) 06/12/20 07:52 Nucleated RBC % (auto) 0.0 /100WBC (0.0-0.2) 06/12/20 07:52 Smear Tech's Comments VERIFIED 06/12/20 07:52 PT 11.0 SEC (10.8-13.0) 06/11/20 12:35 INR 0.9 (0.9-1.1) 06/11/20 12:35 APTT 31.0 SEC (24.1-38.0) 06/11/20 12:35 D-Dimer 687 NG/ML 06/11/20 12:35 D-Dimer Cancelled 06/11/20 12:35 ABG pH 7.44 (7.35-7.45) 06/11/20 13:33 ABG pCO2 45 mmhg (32-45) 06/11/20 13:33 ABG pO2 65 mmhg (83-108) L 06/11/20 13:33 ABG HCO3 30 mmol/l (22-26) H 06/11/20 13:33 ABG O2 Saturation 92.9 % 06/11/20 13:33 ABG Base Excess 5.2 06/11/20 13:33 Oxygen Given 2 L 06/11/20 13:33 Sodium 131 mmol/L (135-145) L 06/12/20 07:52 Potassium 4.5 mmol/l (3.3-5.1) 06/12/20 07:52 Chloride 93 mmol/L (96-108) L 06/12/20 07:52 Carbon Dioxide 28 mmol/L (22-29) 06/12/20 07:52 Anion Gap 15 (12-20) 06/12/20 07:52 BUN 21 mg/dL (9-16) H 06/12/20 07:52 Creatinine 0.96 mg/dL (0.5-1.4) 06/12/20 07:52 Estim Creat Clear Calc 63.1 06/12/20 07:52 Estimated GFR > 60 06/12/20 07:52 POC Glucose 374 mg/dL (60-115) H* 06/15/20 11:30 Random Glucose 215 mg/dL (60-115) H D 06/12/20 07:52 Lactic Acid 1.4 mmol/L (0.5-2.0) 06/11/20 12:35 Calcium 8.5 mg/dL (8.4-10.2) 06/12/20 07:52 Total Bilirubin 0.2 mg/dL (0.0-1.0) 06/11/20 12:35 AST 14 U/L (5-37) 06/11/20 12:35 ALT 14 U/L (0-40) 06/11/20 12:35 Alkaline Phosphatase 84 U/L (39-117) 06/11/20 12:35 Lactate Dehydrogenase 231 U/L (118-273) 06/11/20 12:35 Troponin I High Sens 12.2 ng/L (<3.5-35.0) 06/11/20 12:35 B-Natriuretic Peptide 92 pg/mL (<100) 06/11/20 12:35 Total Protein 6.6 g/dL (6.5-8.0) 06/11/20 12:35 Albumin 4.3 g/dL (3.5-5.0) 06/11/20 12:35 Procalcitonin 0.09 ng/mL 06/11/20 12:35 Urine Color YELLOW 06/11/20 13:33 Urine Appearance CLEAR 06/11/20 13:33 Urine pH 8.0 (5.0-8.0) 06/11/20 13:33 Ur Specific [place] 1.010 (1.005-1.025) 06/11/20 13:33 Urine Protein NEG MG/DL (NEG-TRACE) 06/11/20 13:33 Urine Glucose (UA) NEG MG/DL (NEG) 06/11/20 13:33 Urine Ketones NEG MG/DL (NEG) 06/11/20 13:33 Urine Blood NEG (NEG) 06/11/20 13:33 Urine Nitrite NEG (NEG) 06/11/20 13:33 Ur Leukocyte Esterase NEG (NEG) 06/11/20 13:33 Urine RBC 0-2 /HPF (0) 06/11/20 13:33 Urine WBC 0 /HPF (0-4) 06/11/20 13:33 Ur Squamous Epith Cells NONE /LPF 06/11/20 13:33 Urine Bacteria NONE /LPF 06/11/20 13:33 Coronavirus (PCR) NEGATIVE (Negative) 06/11/20 Unknown Influenza Type A (PCR) NEGATIVE (Negative) 06/11/20 Unknown Influenza Type B (PCR) NEGATIVE (Negative) 06/11/20 Unknown RSV RNA Qual (PCR) NEGATIVE (Negative) 06/11/20 Unknown Preliminary micro results at discharge 06/11/20 Unknown Blood Culture - Preliminary Blood - Venous No growth after 48 hours. 06/11/20 12:35 Blood Culture - Preliminary Blood - Venous No growth after 48 hours. Discharge Plan Discharge Patient Disposition: Xfer SNF Referrals: Physician,Outside [Primary Care Provider] - Amadou Huff DO [Physician] - (Dr Huff cares for this patient on [address]. He is a soldiers home patient, now being cared for at [facility] [place]) Discharge Medications: New prednisone 20 mg tablet 40 mg PO DAILY Qty: 8 RF: 0 cefuroxime axetil 500 mg tablet 500 mg PO BID Qty: 10 RF: 0 azithromycin [Zithromax] 500 mg tablet See Rx Instructions PO .COMPLEX Qty: 3 RF: 0 Continued acetaminophen [Tylenol] 325 mg Tablet 325 mg PO 0000,0600,1200,1800 RF: 0 Lantus U-100 Insulin 100 unit/mL Solution 25 unit SUBCUT BEDTIME RF: 0 atorvastatin [Lipitor] 10 mg Tablet 10 mg PO DAILY@1700 RF: 0 doxepin 10 mg Capsule 100 mg PO DAILY@2100 RF: 0 carbamazepine [Tegretol] 200 mg Tablet 200 mg PO BID@0800,1600 RF: 0 insulin lispro [Humalog U-100 Insulin] 100 unit/mL Solution 0 unit SUBCUT TID@0730,1100,1600 RF: 0 diazepam [Valium] 10 mg Tablet 10 mg PO DAILY@2100 RF: 0 atenolol 50 mg Tablet 50 mg PO DAILY RF: 0 diazepam [Valium] 5 mg Tablet 5 mg PO TID@0800,1200,1700 RF: 0 quetiapine [Seroquel] 25 mg Tablet 25 mg PO BID@1700,2100 RF: 0 lidocaine [Salonpas (lidocaine)] 4 % Adhesive Patch,Medicated 1 patch TOPICAL DAILY@0600 RF: 0 metformin 1,000 mg Tablet 1,000 mg PO BID@0900,1700 RF: 0 omeprazole 20 mg Capsule,Delayed Release(Dr/Ec) 20 mg PO DAILY@1600 RF: 0 oxycodone 5 mg Tablet 5 mg PO 0000,0600,1200,1800 RF: 0 acetaminophen 325 mg Tablet 650 mg PO TID@0800,1400,2000 RF: 0 diltiazem HCl 300 mg Capsule,Extended Release 24hr 300 mg PO DAILY@1000 RF: 0 docusate sodium 100 mg Capsule 100 mg PO BID@0900,1700 RF: 0 fluticasone propionate 50 mcg/actuation [place],Suspension 2 spray INTRANASAL DAILY@2100 RF: 0 ipratropium-albuterol 0.5 mg-3 mg(2.5 mg base)/3 mL Solution For Nebulization 3 ml INHALATION 0600,1000,1400,1800 RF: 0 albuterol sulfate 2.5 mg /3 mL (0.083 %) Solution For Nebulization 2.5 mg INHALATION Q4H PRN (Reason: Shortness Of Breath) RF: 0 guaifenesin 100 mg/5 mL Liquid 100 mg PO Q4H PRN (Reason: Cough) RF: 0 artificial tear(ulspw-abi-jow) 0.1-0.3-0.2 % Drops 1 drp OPHTHALMIC (EYE) Q6H PRN (Reason: Dry Eye(S)) RF: 0 magnesium hydroxide [Milk of Magnesia] 400 mg/5 mL Suspension 30 ml PO DAILY PRN (Reason: Constipation) RF: 0 nitroglycerin 0.4 mg Tablet, Sublingual 0.4 mg SUBLINGUAL Q5M PRN (Reason: Chest Pain) RF: 0 polyethylene glycol 3350 17 gram/dose Powder 17 g PO DAILY RF: 0 sodium chloride 0.65 % Mist 1 spray INTRANASAL Q1H PRN (Reason: Dry Nasal Passages) RF: 0 bisacodyl 5 mg Tablet 10 mg PO DAILY PRN (Reason: Constipation) RF: 0 Held prednisone 10 mg Tablet 10 mg PO DAILY@0800 RF: 0 Hold Instructions: Resume on 06/19/20. Discharge Orders: Discharge Order (Routine); Ordered 06/15/20 Ordered By: Quita Bailon Diet: advance to usual diet and diabetic diet Activity on Discharge: As tolerated Discharge Date/Time: 06/15/20 15:50 Other Ambulatory Orders: Complete Blood Count no Diff (Routine) Timeframe: 1 Week Facility: [facility] - Location: Laboratory Ordered By: Quita Bailon Visit Report Forms: Patient Portal Discharge page Care Plan Goals: Patient came to the hospital because of COPD exacerbation and pneumonia subsequently started on IV antibiotics and Solu-Medrol subsequently patient improved and going to than SNF , po antibiotics and po prednisone. Health Concerns: as above. Plan of Treatment: as above.
[2020-06-19 12:14] LABS: Glucose, Whole Blood 152 mg/dL (60-115)
[2020-07-12 14:35] LABS: Influenza A PCR NEGATIVE (Negative); Influenza B PCR NEGATIVE (Negative); Resp Syncy Virus RNA Qual PCR NEGATIVE (Negative); SARS COV2 PCR INHOUSE NEGATIVE (Negative)
== END 2020-06-15 15:50 | disposition skilled nursing facility (03) | DRG 871 ==
LOC: HO.ED 16:10 → HO.S3 17:20
PROVIDERS: Internal Medicine; Nurse Practitioner Primary Care; Physician Assistant Medical; Admitting Provider Hospitalist; Emergency Provider Emergency Medicine Emergency Medical Services; Visit Provider Internal Medicine
DX: A41.9 Sepsis, unspecified organism (principal); J18.9 Pneumonia, unspecified organism; E87.1 Hypo-osmolality and hyponatremia; J96.11 Chronic respiratory failure with hypoxia; J44.0 Chronic obstructive pulmonary disease with (acute) lower respiratory infection; F41.9 Anxiety disorder, unspecified; E11.9 Type 2 diabetes mellitus without complications; E78.5 Hyperlipidemia, unspecified; D64.9 Anemia, unspecified; R33.9 Retention of urine, unspecified; Z20.828 Contact with and (suspected) exposure to other viral communicable diseases; Z99.81 Dependence on supplemental oxygen; Z87.891 Personal history of nicotine dependence; Z88.6 Allergy status to analgesic agent; Z79.4 Long term (current) use of insulin; Z79.51 Long term (current) use of inhaled steroids; Z79.52 Long term (current) use of systemic steroids; Z79.899 Other long term (current) drug therapy
CPT/HCPCS: 0241U; 36415; 70450; 71045; 71275; 74176; 80048; 80053; 81001; 82803; 82947; 83605; 83615; 83880; 84145; 84484; 85025; 85379; 85610; 85730; 87040; 93005; 94640; 96365; 96367; 96375; 99285; J0456; J0696; J1650; J2543; J2920; J2930; J3370; Q9967

== ENCOUNTER 2020-07-17 18:14 | Inpatient (IN) | payer OTHER, SELFPAY ==
--- NOTE | 2020-07-17 18:46 | ECG_ITS ---
Test Reason : Hyperkalemia Blood Pressure : / mmHG Vent. Rate : 091 BPM Atrial Rate : 091 BPM P-R Int : 186 ms QRS Dur : 086 ms QT Int : 360 ms P-R-T Axes : 066 069 080 degrees QTc Int : 442 ms Normal sinus rhythm Normal ECG When compared to the previous EKG of 11 jun 2020, NSTT less prominent. Referred By: Twyla Watkins Electronically Signed By:REGAN GALVAN
[2020-07-17 20:00] VITALS: BP 174/65; PULSE 90; RESP 20; TEMP 36.3; O2SAT 93
--- NOTE | 2020-07-17 21:32 | PM.IMHP ---
History of Present Illness Date of Service: 07/17/20 Chief Complaint: Hyperkalemia This is a 75 year old male a resident of [facility] who was transferred to the medical floor for increased leukocytosis and lethargy. It appears that patient was feeling increasingly lethargic and therefore he was checked for COVID and basic labs were drawn and was found to have a cyst potassium 6.5. COVID was negative. Patient reports that he has been feeling tired lately but has no complaints of any cough, no shortness of breath, no abdominal pain nausea or vomiting, no diarrhea constipation, no urinary symptoms. No lower extremity edema. He denies any headache no chest pain, no change in vision. He denies any low appetite, reports good oral intake. Denies increase intake of potassium including no bananas or broccoli. His vitals upon transfer were stable with a temp of 97.0?, heart rate of 90, respiratory rate of 20, blood pressure of 174/65 Labs significant for sodium of 126, potassium 6.5, chloride of 88, BUN of 19 with a creatinine of 1.31, recheck on labs after receiving Kayexalate shows a sodium of 131, potassium 4.7, BUN of 19 with a creatinine of 1.12 past medical history: Hypertension, hyponatremia, diabetes, hyperlipidemia, osteoarthritis, SVT, trigeminal neuralgia, depression, COPD, anxiety and anemia Surgical history: Denies Family history: Denies Social history: Resident of [facility], ambulates independently, denies tobacco alcohol or illicit drugs Review of Systems Review of Systems: Yes all other systems are reviewed and are negative [facility] Medical History Anemia Anxiety COPD (chronic obstructive pulmonary disease) Depression Diabetes Hyperlipidemia Hypertension Hyponatremia Osteoarthritis SVT (supraventricular tachycardia) Trigeminal neuralgia Social History (Updated 06/11/20 @ 17:10 by MALLORY Pemberton) Household Members: None Housing: [facility] Do you presently have visiting nurse or other home services: No Alcohol intake: never Smoking Status: Unknown if ever smoked Use of substances other than those prescribed or required for medical reasons: No Currently Displaying Signs/Symptoms of Drug Intoxication Withdrawal: No Have you been hit, kicked, punched, or otherwise hurt by someone within the past year? If so, by whom?: No Do you feel safe in your current relationship?: No Current Relationship Is there a partner from a previous relationship who is making you feel unsafe now?: No Are you made to feel afraid or neglected: No Advance Directives: No Advance Directives Information Provided: Yes Do you have thoughts of harming others: None Do you have a plan to hurt others: No Plan Recently lost weight without trying: No service: Yes (Lives HS) Current occupational status: retired Meds Allergies Allergy/AdvReac Type Severity Reaction Status Date / Time aspirin [Aspirin] Allergy Mild UNKNOWN Verified 06/12/20 09:10 doxycycline Allergy Unknown Unknown Verified 06/12/20 09:10 influenza virus vaccine, Allergy Unknown HIVES Verified 06/12/20 09:10 specific [FLU VACCINE] latex [LATEX] Allergy Unknown UNKNOWN Verified 06/12/20 09:10 Home Medications Medication Instructions Recorded Confirmed Type Lantus U-100 Insulin 25 unit SUBCUT BEDTIME 06/11/20 06/13/20 History acetaminophen [Tylenol] 325 mg PO 0000,0600,1200,1800 06/11/20 06/13/20 History atenolol 50 mg PO DAILY 06/11/20 06/11/20 History atorvastatin [Lipitor] 10 mg PO DAILY@1700 06/11/20 06/13/20 History carbamazepine [Tegretol] 200 mg PO BID@0800,1600 06/11/20 06/13/20 History diazepam [Valium] 5 mg PO TID@0800,1200,1700 06/11/20 06/13/20 History diazepam [Valium] 10 mg PO DAILY@2100 06/11/20 06/13/20 History doxepin 100 mg PO DAILY@209906/11/20 06/13/20 History insulin lispro [Humalog U-100 0 unit SUBCUT TID@0730,1100,1600 06/11/20 06/13/20 History Insulin] lidocaine [Salonpas (lidocaine)] 1 patch TOPICAL DAILY@0600 06/11/20 06/13/20 History metformin 1,000 mg PO BID@0900,1700 06/11/20 06/13/20 History omeprazole 20 mg PO DAILY@1600 06/11/20 06/13/20 History oxycodone 5 mg PO 0000,0600,1200,1800 06/11/20 06/13/20 History prednisone 10 mg PO DAILY@0800 06/11/20 06/13/20 History quetiapine [Seroquel] 25 mg PO BID@1700,2100 06/11/20 06/13/20 History acetaminophen 650 mg PO TID@0800,1400,2000 06/13/20 06/13/20 History albuterol sulfate 2.5 mg INHALATION Q4H PRN 06/13/20 06/13/20 History artificial tear(hibit-psm-udz) 1 drp OPHTHALMIC (EYE) Q6H PRN 06/13/20 06/13/20 History bisacodyl 10 mg PO DAILY PRN 06/13/20 06/13/20 History diltiazem HCl 300 mg PO DAILY@1000 06/13/20 06/13/20 History docusate sodium 100 mg PO BID@0900,1700 06/13/20 06/13/20 History fluticasone propionate 2 spray INTRANASAL DAILY@209906/13/20 06/13/20 History guaifenesin 100 mg PO Q4H PRN 06/13/20 06/13/20 History ipratropium-albuterol 3 ml INHALATION 0600,1000,1400,1800 06/13/20 06/13/20 History magnesium hydroxide [Milk of 30 ml PO DAILY PRN 06/13/20 06/13/20 History Magnesia] nitroglycerin 0.4 mg SUBLINGUAL Q5M PRN 06/13/20 06/13/20 History polyethylene glycol 3350 17 g PO DAILY 06/13/20 06/13/20 History sodium chloride 1 spray INTRANASAL Q1H PRN 06/13/20 06/13/20 History Physical Exam Vital Signs and Narrative: Vital Signs: Last Vital Signs Temp 97.4 F 07/17/20 20:00 Pulse 90 07/17/20 20:00 Resp 20 07/17/20 20:00 BP 174/65 H 07/17/20 20:00 Pulse Ox 93 07/17/20 20:00 Const: Other: Patient is awake, alert, oriented to self place and time. General: cooperative and no acute distress Orientation/consciousness: patient oriented x3 Eyes: General: appearance normal, both eyes and all related structures Resp: Effort & Inspection: normal respiratory effort and able to speak in complete sentences Cardio: Rate: regular rate Rhythm: regular rhythm GI: Palpation (GI): Soft to palpation Auscultation: normal bowel sounds Skin: General skin exam: no rashes or lesions noted Neuro: General: patient oriented x3 Cognition (Neuro): normal cognition Extrem: General: Yes normal to inspection and Yes no pedal edema Results Labs CBC and Chem 7: 07/17/20 21:33 07/17/20 21:33 Assessment and Plan (1) Hyperkalemia: Status: Acute (2) Diabetes: Status: Acute (3) COPD (chronic obstructive pulmonary disease): Qualifiers: COPD type: COPD with acute lower respiratory infection Qualified Code(s): J44.0 - Chronic obstructive pulmonary disease with (acute) lower respiratory infection Status: Acute (4) Hypertension: Status: Inactive 75-year-old male with past medical history as above who presents to the medical floor after being found to have hyperkalemia of 6.5. Patient was also reported to be more lethargic although on my exam patient is alert oriented x3. # hyperkalemia - unclear etiology, no EKG changes - on repeat labs resolved to 4.7 - will follow BMP, continue telemetry # lethargy - resolved, currently completely alert and oriented x3 - possibly medication induced - patient on Valium, Oxy, and Seroquel - will continue his oxycodone, hold Valium, and monitor mentation # diabetes - Will continue home regimen of insulin - Correction scale insulin, Diabetic diet # HTN - Stable - Continue home regimen DVT ppx: heparin subq For all other chronic issues will continue baseline meds
[2020-07-17] MEDS: 0.9 % Sodium Chloride Flush 3 ML SYRINGE IVFLUSH (21:37)
[2020-07-17 22:03] LABS: Anion Gap 15 (12-20); Blood Urea Nitrogen 19 mg/dL (9-16); Calcium 8.5 mg/dL (8.4-10.2); Carbon Dioxide 31 mmol/L (22-29); Chloride 90 mmol/L (96-108); Estimated Glomerular Filt Rate > 60; Glucose Random 69 mg/dL (60-115); Potassium 4.7 mmol/l (3.3-5.1); Sodium 131 mmol/L (135-145)
[2020-07-17] MEDS: oxyCODONE HCl Immed Release 5 MG TABLET PO (23:09)
[2020-07-18] VITALS (8 sets, daily range): BP systolic 91–189; BP diastolic 67–88; PULSE 82–115; RESP 18–20; TEMP 36.2–36.8; O2SAT 95–100; BMI 25.7
[2020-07-18] MEDS: oxyCODONE HCl Immed Release 5 MG TABLET PO ×4 (04:41→17:40)
[2020-07-18 07:07] LABS: MANUAL DIFF FLAG NO
[2020-07-18 07:15] LABS: Basophils Absolute Auto 0.1 X10*3/uL (0.0-0.2); Basophils Percent Auto 0.5 % (0-2); Eosinophils Absolute Auto 0.3 X10*3/uL (0.0-0.4); Eosinophils Percent Auto 2.4 % (0-4); Hematocrit 30.4 % (42-52); Hemoglobin 9.8 g/dl (14.0-18.0); Imm Gran Abs Auto 0.19 X10*3/uL (0.00-0.03); Imm Gran Pct Auto 1.4 % (0.0-0.4); Lymphocytes Absolute Auto 1.4 X10*3/uL (1.2-4.9); Lymphocytes Percent Auto 10.3 % (20-40); Mean Corpuscular HGB Conc 32.2 g/dl (31.0-36.0); Mean Corpuscular Volume 77.6 fL (80-98); Mean Platelet Volume 8.6 fL (9.4-12.4); Monocytes Percent Auto 7.4 % (2-11); Neutrophils Absolute Auto 10.3 X10*3/uL (2.0-8.3); Platelet Count 299 X10*3/uL (160-400); Red Blood Count 3.92 X10*6/uL (4.60-5.80); Red Cell Distribution Width 13.9 % (11.0-16.0); White Blood Count 13.2 X10*3/uL (4.8-10.8)
[2020-07-18 07:35] LABS: Blood Urea Nitrogen 19 mg/dL (9-16); Estimated Glomerular Filt Rate 59
[2020-07-18 07:48] LABS: Anion Gap 19 (12-20); Carbon Dioxide 25 mmol/L (22-29); Chloride 87 mmol/L (96-108); Potassium 4.7 mmol/l (3.3-5.1); Sodium 126 mmol/L (135-145)
[2020-07-18 07:56] LABS: Glucose Random 379 mg/dL (60-115)
[2020-07-18 08:22] LABS: Glucose, Whole Blood 355 mg/dL (60-115)
[2020-07-18] MEDS: Insulin Lispro 100 UNIT/ML 3 ML VIAL SUBCUT ×2 (08:37→22:17)
[2020-07-18] MEDS: 0.9 % Sodium Chloride Flush 3 ML SYRINGE IVFLUSH ×2 (08:38→17:46)
--- NOTE | 2020-07-18 11:18 | HO.PM.IMPN ---
Subjective Subjective Date of Service: 07/19/20 Interval History: Seen in f/u for lethargy and found to have hyperkalemia and leukocytosis. Feels better today. But sodium is lower, and hypErkalemia has resolved. Gen: no fever Resp: + sob but baseline, no cough CV: no chest, no PATRICK, no leg edema GI: No n/v, no abd pain Neuro: No confusion Physical Exam Vital Signs: Vital Signs: Last Vital Signs Temp 97.8 F 07/18/20 07:28 Pulse 115 H 07/18/20 07:28 Resp 18 07/18/20 07:28 BP 115/77 07/18/20 07:28 Pulse Ox 100 07/18/20 07:28 Const: General: cooperative and no acute distress Orientation/consciousness: patient oriented x3 Resp: Effort & Inspection: normal respiratory effort and able to speak in complete sentences Cardio: Rate: regular rate Rhythm: regular rhythm GI: Palpation (GI): Soft to palpation Auscultation: normal bowel sounds Skin: General skin exam: no rashes or lesions noted Neuro: General: patient oriented x3 Cognition (Neuro): normal cognition Objective Data Current Medications Generic Name Dose Route Start Last Admin Trade Name Freq PRN Reason Stop Dose Admin Acetaminophen 650 mg 07/17/20 18:46 Acetaminophen 325 Mg Tablet PO Q6H PRN Pain, Mild (Pain Scale 1-3) Docusate Sodium 100 mg 07/17/20 18:46 Docusate Sodium 100 Mg Capsule PO DAILY PRN Constipation Insulin Human Lispro 0 unit 07/17/20 21:00 07/18/20 08:37 Insulin Lispro 100 Unit/Ml 3 Ml Vial SUBCUT 10 unit QIDAS [facility] Administration Protocol Insulin Human Lispro 0 unit 07/18/20 07:30 07/18/20 08:38 Insulin Lispro 100 Unit/Ml 3 Ml Vial SUBCUT [facility] Protocol Ondansetron HCl 4 mg 07/17/20 18:46 Ondansetron Hcl 4 Mg/2 Ml Vial IVPUSH Q8H PRN Nausea and Vomiting Oxycodone HCl 5 mg 07/17/20 22:12 07/18/20 09:21 Oxycodone Hcl Immed Release 5 Mg Tablet PO 5 mg Q6H PRN Administration Pain, Severe (Pain Scale 7-10) Sodium Chloride 3 ml 07/18/20 00:00 07/18/20 08:38 0.9 % Sodium Chloride Flush 3 Ml Syringe IVFLUSH 3 ml QSHIFT MARK Administration Labs CBC & Chem 7: 07/18/20 05:51 07/18/20 05:51 Assessment and Plan (1) Hyperkalemia: Status: Acute (2) Diabetes: Status: Acute (3) COPD (chronic obstructive pulmonary disease): Status: Acute (4) Hypertension: Status: Inactive Assessment and Plan: 75-year-old male with past medical history as above who presents to the medical floor after being found to have hyperkalemia of 6.5. Patient was also reported to be more lethargic although on my exam patient is alert oriented x3. # hyperkalemia - unclear etiology, no EKG changes - on repeat labs resolved to 4.7 - will follow BMP, continue telemetry #Hyponatremia--acute on chronic, fluid restriction and Nephrology eval # lethargy--likely combination of things including high K and low sodium - resolved, currently completely alert and oriented x3 - possibly medication induced - patient on Valium, Oxy, and Seroquel - will continue his oxycodone. Valium has been on hold, restart slowly # diabetes--labile blood sugars --365 to 65 this morning. On Lantus and Humalog. Hold Lantus anb Metformin for now - Will continue home regimen of insulin - Correction scale insulin, Diabetic diet #End stage COPD--continue bronchodilators and chronic steroid # Anxiety--Valium and close monitor # HTN--on Atenolol, and cardizem #Neuropathy--Neurontin DVT ppx: heparin subq For all other chronic issues will continue baseline meds
[2020-07-18 11:34] LABS: Glucose, Whole Blood 65 mg/dL (60-115)
[2020-07-18] MEDS: Acetaminophen 325 MG TABLET 650 MG PO ×2 (12:19→22:16)
[2020-07-18] MEDS: diazePAM 5 MG TABLET PO ×2 (12:19→17:41)
[2020-07-18] MEDS: atenoloL 50 MG TABLET PO (12:19)
[2020-07-18] MEDS: Acetaminophen 325 MG TABLET PO ×2 (12:20→17:41)
[2020-07-18 12:41] LABS: Glucose, Whole Blood 85 mg/dL (60-115)
[2020-07-18] MEDS: Albuterol/Iprat 2.5/0.5MG 3 ML AMPUL.NEB INHALE (14:12)
[2020-07-18 16:17] LABS: Glucose, Whole Blood 188 mg/dL (60-115)
[2020-07-18] MEDS: Omeprazole 20 MG CAPSULE.DR PO (17:40)
[2020-07-18] MEDS: Atorvastatin Calcium 10 MG TABLET PO (17:40)
[2020-07-18] MEDS: Docusate Sodium 100 MG CAPSULE PO (17:40)
[2020-07-18] MEDS: QUEtiapine Fumarate 25 MG TABLET PO ×2 (17:40→22:16)
[2020-07-18] MEDS: carBAMazepine 200 MG TABLET PO (17:40)
[2020-07-18 19:49] LABS: Glucose, Whole Blood 195 mg/dL (60-115)
[2020-07-18] MEDS: diazePAM 10 MG TABLET PO (22:16)
[2020-07-18] MEDS: Doxepin HCl 25 MG CAPSULE 100 MG PO (22:16)
[2020-07-18] MEDS: Fluticasone Propionate Nasal 16 GM SPRAY 2 SPRAY NOSTRIL-B (22:17)
[2020-07-19] VITALS (9 sets, daily range): BP systolic 97–160; BP diastolic 48–78; PULSE 75–92; RESP 18–20; TEMP 36.1–37.1; O2SAT 93–100
[2020-07-19] MEDS: Acetaminophen 325 MG TABLET PO ×4 (01:54→17:49)
[2020-07-19] MEDS: oxyCODONE HCl Immed Release 5 MG TABLET PO ×5 (01:54→21:51)
[2020-07-19] MEDS: 0.9 % Sodium Chloride Flush 3 ML SYRINGE IVFLUSH ×3 (01:55→16:56)
[2020-07-19] MEDS: Lidocaine 4 % Patch ADH..PATCH 1 PATCH TRANSDERMA (05:46)
[2020-07-19] MEDS: Albuterol/Iprat 2.5/0.5MG 3 ML AMPUL.NEB INHALE ×2 (06:32→15:37)
[2020-07-19 07:24] LABS: Glucose, Whole Blood 136 mg/dL (60-115)
[2020-07-19] MEDS: Acetaminophen 325 MG TABLET 650 MG PO ×2 (07:59→14:17)
[2020-07-19] MEDS: carBAMazepine 200 MG TABLET PO ×2 (07:59→16:56)
[2020-07-19] MEDS: predniSONE 10 MG TABLET PO (07:59)
[2020-07-19] MEDS: Docusate Sodium 100 MG CAPSULE PO ×2 (07:59→17:50)
[2020-07-19] MEDS: atenoloL 50 MG TABLET PO (07:59)
[2020-07-19] MEDS: diazePAM 5 MG TABLET PO ×3 (07:59→17:50)
--- NOTE | 2020-07-19 09:43 | HO.PM.IMPN ---
Subjective Subjective Date of Service: 07/19/20 Interval History: Seen in f/u for lethargy and found to have hyperkalemia and leukocytosis. Feels better today. But sodium is lower, and hypErkalemia has resolved. Gen: no fever Resp: + sob (baseline), no cough CV: no chest, no PATRICK, no leg edema GI: No n/v, no abd pain Neuro: No confusion Physical Exam Vital Signs: Vital Signs: Last Vital Signs Temp 98.1 F 07/19/20 08:00 Pulse 89 07/19/20 08:00 Resp 20 07/19/20 08:00 BP 104/57 L 07/19/20 08:00 Pulse Ox 98 07/19/20 08:00 Body Mass Index 25.7 Const: General: cooperative and no acute distress Orientation/consciousness: patient oriented x3 Resp: Effort & Inspection: normal respiratory effort and able to speak in complete sentences Cardio: Rate: regular rate Rhythm: regular rhythm GI: Palpation (GI): Soft to palpation Auscultation: normal bowel sounds Skin: General skin exam: no rashes or lesions noted Neuro: General: patient oriented x3 Cognition (Neuro): normal cognition Objective Data Current Medications Generic Name Dose Route Start Last Admin Trade Name Freq PRN Reason Stop Dose Admin Acetaminophen 650 mg 07/17/20 18:46 Acetaminophen 325 Mg Tablet PO Q6H PRN Pain, Mild (Pain Scale 1-3) Acetaminophen 650 mg 07/18/20 14:00 07/19/20 07:59 Acetaminophen 325 Mg Tablet PO 650 mg TID@0800,1400,2000 MARK Administration Acetaminophen 325 mg 07/18/20 12:00 07/19/20 05:46 Acetaminophen 325 Mg Tablet PO 325 mg 0000,0600,1200,1800 MARK Administration Albuterol Sulfate 2.5 mg 07/18/20 11:46 Albuterol Sulfate (0.083%) 2.5 Mg/3 Ml Vial.Neb INHALE Q4H PRN Shortness Of Breath Albuterol/Ipratropium 3 ml 07/18/20 14:00 07/19/20 06:32 Albuterol/Iprat 2.5/0.5mg 3 Ml Ampul.Neb INHALE 3 ml 0600,1000,1400,1800 MARK Administration Artificial Tears 1 drop 07/18/20 12:37 Artificial Tears 15 Ml Drops EYE-BOTH Q6H PRN Dry Eye(S) Atenolol 50 mg 07/18/20 12:00 07/19/20 07:59 Atenolol 50 Mg Tablet PO 50 mg DAILY MARK Administration Protocol Atorvastatin Calcium 10 mg 07/18/20 17:00 07/18/20 17:40 Atorvastatin Calcium 10 Mg Tablet PO 10 mg DAILY@1700 MARK Administration Bisacodyl 10 mg 07/18/20 12:03 Bisacodyl 5 Mg Tablet.Dr PO DAILY PRN Constipation Carbamazepine 200 mg 07/18/20 16:00 07/19/20 07:59 Carbamazepine 200 Mg Tablet PO 200 mg BID@0800,1600 MARK Administration Cefuroxime Axetil 500 mg 07/18/20 21:00 07/19/20 07:59 Cefuroxime Axetil 500 Mg Tablet PO 500 mg BID MARK Administration Diazepam 5 mg 07/18/20 12:00 07/19/20 07:59 Diazepam 5 Mg Tablet PO 5 mg TID@0800,1200,1700 MARK Administration Diazepam 10 mg 07/18/20 21:00 07/18/20 22:16 Diazepam 10 Mg Tablet PO 10 mg DAILY@2100 [facility] Administration Diltiazem HCl 300 mg 07/19/20 10:00 Diltiazem Hcl Cd 300 Mg Cap.Er.24h PO DAILY@1000 [facility] Protocol Docusate Sodium 100 mg 07/17/20 18:46 Docusate Sodium 100 Mg Capsule PO DAILY PRN Constipation Docusate Sodium 100 mg 07/18/20 17:00 07/19/20 07:59 Docusate Sodium 100 Mg Capsule PO 100 mg BID@0900,1700 MARK Administration Doxepin HCl 100 mg 07/18/20 21:00 07/18/20 22:16 Doxepin Hcl 25 Mg Capsule PO 100 mg DAILY@2100 [facility] Administration Fluticasone Propionate 2 spray 07/18/20 21:00 07/18/20 22:17 Fluticasone Propionate Nasal 16 Gm [place] NOSTRIL-B 2 spray DAILY@2100 [facility] Administration Guaifenesin 5 ml 07/18/20 11:46 Guaifenesin 100 Mg/5 Ml Liquid PO Q4H PRN Cough Insulin Glargine 25 unit 07/18/20 21:00 07/18/20 22:18 Insulin Glargine,Hum.Rec.Anlog 100 Unit/Ml 10 Ml Vial SUBCUT Not Given BEDTIME [facility] Insulin Human Lispro 0 unit 07/18/20 07:30 07/19/20 08:05 Insulin Lispro 100 Unit/Ml 3 Ml Vial SUBCUT Not Given QIDACHS [facility] Protocol Insulin Human Lispro 0 unit 07/18/20 16:00 07/19/20 08:06 Insulin Lispro 100 Unit/Ml 3 Ml Vial SUBCUT Not Given TID@0730,1100,1600 [facility] Lidocaine 1 patch 07/19/20 06:00 07/19/20 05:46 Lidocaine 4 % Patch Adh..Patch TRANSDERMA 1 patch DAILY@0600 [facility] Administration Protocol Magnesium Hydroxide 30 ml 07/18/20 11:46 Milk Of Magnesia 30 Ml Oral.Susp PO DAILY PRN Constipation Nitroglycerin 0.4 mg 07/18/20 11:46 Nitroglycerin 0.4 Mg Tab.Subl SUBLINGUAL Q5M PRN Chest Pain Omeprazole 20 mg 07/18/20 16:00 07/18/20 17:40 Omeprazole 20 Mg Capsule.Dr PO 20 mg DAILY@1600 [facility] Administration Ondansetron HCl 4 mg 07/17/20 18:46 Ondansetron Hcl 4 Mg/2 Ml Vial IVPUSH Q8H PRN Nausea and Vomiting Oxycodone HCl 5 mg 07/17/20 22:12 07/18/20 09:21 Oxycodone Hcl Immed Release 5 Mg Tablet PO 5 mg Q6H PRN Administration Pain, Severe (Pain Scale 7-10) Oxycodone HCl 5 mg 07/18/20 12:00 07/19/20 05:46 Oxycodone Hcl Immed Release 5 Mg Tablet PO 5 mg 0000,0600,1200,1800 [facility] Administration Polyethylene Glycol 17 gm 07/19/20 09:00 07/19/20 08:01 Polyethylene Glycol 3350 17 Gm Powd.Pack PO Not Given DAILY [facility] Prednisone 10 mg 07/19/20 08:00 07/19/20 07:59 Prednisone 10 Mg Tablet PO 10 mg DAILY@0800 [facility] Administration Quetiapine Fumarate 25 mg 07/18/20 17:00 07/18/20 22:16 Quetiapine Fumarate 25 Mg Tablet PO 25 mg BID@1700,2100 [facility] Administration Sodium Chloride 3 ml 07/18/20 00:00 07/19/20 07:59 0.9 % Sodium Chloride Flush 3 Ml Syringe IVFLUSH 3 ml QSHIFT MARK Administration Sodium Chloride 1 spray 07/18/20 12:30 Sodium Chloride 0.65 % Nasal 44 Ml Sprbtl NOSTRIL-B Q1H PRN Dry Nasal Passages Labs CBC & Chem 7: 07/18/20 05:51 07/18/20 05:51 Assessment and Plan (1) Hyperkalemia: Status: Acute (2) Diabetes: Status: Acute (3) COPD (chronic obstructive pulmonary disease): Status: Acute (4) Hypertension: Status: Inactive Assessment and Plan: 75-year-old male with past medical history as above who presents to the medical floor after being found to have hyperkalemia of 6.5. Patient was also reported to be more lethargic although on my exam patient is alert oriented x3. # hyperkalemia--resolved. #Hyponatremia--acute on chronic, fluid restriction and Nephrology eval. repeat labs this morning # lethargy--likely combination of things including high K and low sodium - resolved, currently completely alert and oriented x3 - possibly medication induced - patient on Valium, Oxy, and Seroquel - will continue his oxycodone. Valium has been on hold, restart slowly # diabetes--labile blood sugars --365 to 65 this morning. On Lantus and Humalog. Hold Lantus anb Metformin for now - Correction scale insulin, Diabetic diet #End stage COPD--continue bronchodilators and chronic steroid # Anxiety--Valium and close monitor # HTN--on Atenolol, and cardizem #Neuropathy--Neurontin DVT ppx: heparin subq For all other chronic issues will continue baseline meds
[2020-07-19 10:42] LABS: Anion Gap 13 (12-20); Blood Urea Nitrogen 14 mg/dL (9-16); Calcium 8.4 mg/dL (8.4-10.2); Carbon Dioxide 33 mmol/L (22-29); Chloride 93 mmol/L (96-108); Creatinine Clr Calc Pharmacy 54.5; Estimated Glomerular Filt Rate > 60; Glucose Random 200 mg/dL (60-115); Potassium 4.8 mmol/l (3.3-5.1); Sodium 134 mmol/L (135-145)
[2020-07-19 11:22] LABS: Glucose, Whole Blood 226 mg/dL (60-115)
[2020-07-19] MEDS: dilTIAZem HCL CD 300 MG CAP.ER.24H PO (11:30)
--- NOTE | 2020-07-19 12:02 | MHC.CM.PN ---
PT REPORTS HE IS A RESIDENT OF [facility] BUT HAS BEEN AT [facility] FOR SOME TIME. 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 PT CONFIRMS HE HAS MEDICARE HOWEVER ONLY HIS [employer] INSURANCE IS LISTED. IMM DELIVERED CURRENT DC PLAN IS FOR PT TO RETURN TO [address]
--- NOTE | 2020-07-19 15:23 | PM.PNNEP ---
Subjective Subjective Date of Service: 07/19/20 Interval history: Events noted No new complaints Physical Exam Vital Signs: Vital Signs: Last Vital Signs Temp 98.7 F 07/19/20 11:29 Pulse 90 07/19/20 11:30 Resp 20 07/19/20 11:29 BP 108/60 07/19/20 11:30 Pulse Ox 93 07/19/20 11:29 Body Mass Index 25.7 Const: General: no acute distress Neck: Neck: Yes no JVD Resp: Auscultation: rhonchi GI: Palpation (GI): Soft to palpation Objective Data Labs CBC & Chem 7: 07/18/20 05:51 07/19/20 09:56 Labs: Laboratory Results - last 24 hr 07/18/20 07/18/20 07/19/20 16:05 19:40 07:15 Sodium Potassium Chloride Carbon Dioxide Anion Gap BUN Creatinine Estim Creat Clear Calc Estimated GFR POC Glucose 188 H 195 H 136 H Random Glucose Calcium 07/19/20 07/19/20 09:56 11:13 Sodium 134 L Potassium 4.8 Chloride 93 L Carbon Dioxide 33 H Anion Gap 13 BUN 14 Creatinine 1.15 Estim Creat Clear Calc 54.5 Estimated GFR > 60 POC Glucose 226 H Random Glucose 200 H D Calcium 8.4 Assessment & Plan Assessment and plan (1) Hyperkalemia: Problem details: REsolved GIANNA - resolving Status: Acute (2) Hyponatremia: Problem details: Na is improving Keep PO water restriction Status: Acute Time Spent With Patient Time: Total time spent is greater than 50% in coordination of care (as documented) at patient's floor/unit and/or counseling patient:
[2020-07-19 16:24] LABS: Glucose, Whole Blood 282 mg/dL (60-115)
[2020-07-19] MEDS: Omeprazole 20 MG CAPSULE.DR PO (16:56)
[2020-07-19] MEDS: Insulin Lispro 100 UNIT/ML 3 ML VIAL SUBCUT ×2 (16:57→22:07)
[2020-07-19] MEDS: Atorvastatin Calcium 10 MG TABLET PO (17:50)
[2020-07-19] MEDS: QUEtiapine Fumarate 25 MG TABLET PO ×2 (17:50→21:50)
[2020-07-19 19:57] LABS: Glucose, Whole Blood 349 mg/dL (60-115)
[2020-07-19] MEDS: Doxepin HCl 25 MG CAPSULE 100 MG PO (21:50)
[2020-07-19] MEDS: diazePAM 10 MG TABLET PO (21:50)
[2020-07-19] MEDS: Fluticasone Propionate Nasal 16 GM SPRAY 2 SPRAY NOSTRIL-B (21:57)
[2020-07-19] MEDS: Insulin Glargine,Hum.rec.anlog 100 UNIT/ML 10 ML VIAL 25 UNIT SUBCUT (21:59)
[2020-07-20] MEDS: Acetaminophen 325 MG TABLET PO ×2 (00:22→05:13)
[2020-07-20] MEDS: oxyCODONE HCl Immed Release 5 MG TABLET PO ×2 (00:23→05:14)
[2020-07-20] MEDS: 0.9 % Sodium Chloride Flush 3 ML SYRINGE IVFLUSH ×2 (00:23→08:50)
[2020-07-20 04:00] VITALS: BP 91/65; PULSE 109; RESP 18; TEMP 36.6; O2SAT 93
[2020-07-20] MEDS: Lidocaine 4 % Patch ADH..PATCH 1 PATCH TRANSDERMA (05:12)
[2020-07-20 06:08] VITALS: PULSE 84; O2SAT 99
[2020-07-20] MEDS: Albuterol/Iprat 2.5/0.5MG 3 ML AMPUL.NEB INHALE ×2 (06:08→09:58)
[2020-07-20 07:36] LABS: Glucose, Whole Blood 123 mg/dL (60-115)
[2020-07-20 07:46] LABS: Glucose, Whole Blood 82 mg/dL (60-115)
[2020-07-20 08:00] VITALS: BP 100/59; PULSE 80; RESP 20; TEMP 36.8; O2SAT 93
[2020-07-20 08:49] VITALS: BP 100/59; PULSE 80
[2020-07-20] MEDS: diazePAM 5 MG TABLET PO (08:49)
[2020-07-20] MEDS: Docusate Sodium 100 MG CAPSULE PO (08:49)
[2020-07-20] MEDS: dilTIAZem HCL CD 300 MG CAP.ER.24H PO (08:49)
[2020-07-20] MEDS: carBAMazepine 200 MG TABLET PO (08:49)
[2020-07-20] MEDS: predniSONE 10 MG TABLET PO (08:49)
[2020-07-20] MEDS: Acetaminophen 325 MG TABLET 650 MG PO (08:49)
[2020-07-20] MEDS: atenoloL 50 MG TABLET PO (08:49)
[2020-07-20 10:04] VITALS: PULSE 82; O2SAT 99
[2020-07-20 10:10] LABS: Anion Gap 17 (12-20); Blood Urea Nitrogen 14 mg/dL (9-16); Calcium 8.3 mg/dL (8.4-10.2); Carbon Dioxide 27 mmol/L (22-29); Chloride 91 mmol/L (96-108); Creatinine Clr Calc Pharmacy 51.8; Estimated Glomerular Filt Rate 59; Glucose Random 223 mg/dL (60-115); Potassium 4.6 mmol/l (3.3-5.1); Sodium 130 mmol/L (135-145)
--- NOTE | 2020-07-20 10:55 | P.CDIC_ITS ---
CDI Concurrent Query Service Date: 07/20/20 Documentation Clarification: Please clarify if you are treating a proba ble/suspected/likely or confirmed: Specifics Acute COPD Exacerbation with lower respiratory infection POA Please specify if known PLEASE DO NOT DELETE/MODIFY EXISTING CONTENT Additional information is needed in order to code to the highest accuracy and appropriate Severity of Illness (SOI). Please clarify the information noted below in your progress notes and discharge summary. Risk Factors/Clinical Indicators/Treatments H&P: 07/17 - Assessment/plan: COPD w lower respiratory infection PN: 07/18 - Assessment/plan: End stage COPD, continue bronchodilators. CDS: Randee Matthews CCS, CDIS Contact Number: [phone] Please Review the information above and exercise your independent professional judgment in responding to the query. If you concur, pleas document in the PROGRESS NOTES and DISCHARGE SUMMARY. If you do not agree with the query, please document in the query above. THIS QUERY IS PART OF THE PERMANENT MEDICAL RECORD
--- NOTE | 2020-07-20 11:19 | MHC.CM.PN ---
Patient has been medically cleared to return to SNF LOC ([facility]).Last IMM addressed on 07/18/20.
--- NOTE | 2020-07-20 18:19 | CONS_ITS ---
DATE OF SERVICE: 07/18/2020 REASON FOR CONSULTATION: I was called to see this patient to assist in the management of hyperkalemia and hyponatremia with mild chronic kidney disease. HISTORY OF PRESENT ILLNESS: Simone is well known to us. He has a history of chronic hyponatremia. He has history of hyperkalemia as well. He had a routine blood work and was found to have a potassium of 6.5 and therefore he has been admitted. He received a dose of Kayexalate and potassium was decreased to 4.7. The serum sodium was 126 on admission, which remains essentially unchanged. Also at the time of admission, serum creatinine was 1.31 with eGFR of 53 mL/minute, at present creatinine was 1.21. The blood sugar was elevated at the time of admission. 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 SOCIAL HISTORY: He is a resident of [facility]. No history of any alcohol abuse or drug abuse. History of smoking in the past. ALLERGIES: HE IS ALLERGIC TO ASPIRIN, DOXYCYCLINE, , AND LATEX. MEDICATIONS: At time of admission including insulin, acetaminophen, citalopram, Tegretol, diazepam, insulin, metformin, omeprazole, prednisone, quetiapine, albuterol, bisacodyl, diltiazem, . REVIEW OF SYSTEMS: Positive for some shortness of breath, which is not unusual. No cough. No chest pain. No nausea or vomiting. No polyuria or polydipsia. No difficulty urination. No edema. No fever. No rash. All other systems were reviewed. PHYSICAL EXAMINATION: GENERAL: The patient is a 75-year-old man, who appears comfortable, not in any distress. General hygiene is rather poor. LUNGS: Bilateral rhonchi. HEART: S1, S2 heard. No gallop. ABDOMEN: Soft, nontender. EXTREMITIES: No edema. No rash. No clubbing. VITAL SIGNS: Blood pressure 127/88, pulse 102, he is afebrile. LABORATORY DATA: Sodium 126, potassium 4.7, BUN 19, creatinine 1.1, blood sugar 379. Urine studies are not available in the past. He has glycosuria. No significant proteinuria. Hemoglobin 9.8, platelet count 299,000. IMPRESSION: 75-year-old man, who has mild chronic kidney disease and chronic obstructive pulmonary disease with significant hyperkalemia and hyponatremia. I have initiated a workup which will include spot urine for sodium, creatinine osmolality along with serum osmolality. He probably has nonosmotic ADH release. However, we need to rule out 75-year-old man. I will certainly check the serum cortisol levels. In the meantime, we will keep him on a low-potassium diet and monitor the potassium. No need for further Kayexalate. As far the hyponatremia, I would keep on oral free water restriction of 1 L per 24 hours and watch the serum sodium. There is no absolute indication for 3% sodium chloride solution at this time. We will follow him with the team. MD CATHY Perry/MODL / [id number]
[2020-07-21 07:35] LABS: Glucose, Whole Blood 284 mg/dL (60-115)
[2020-07-27 08:33] LABS: Glucose, Whole Blood 248 mg/dL (60-115)
[2020-07-27 08:40] LABS: Glucose, Whole Blood 133 mg/dL (60-115)
--- NOTE | 2020-07-30 09:02 | P.DS_ITS ---
DS: Providers Provider Date of Service: 07/30/20 Primary care physician: DS: Diagnosis Discharge Diagnosis (1) Hyperkalemia: Status: Resolved Problem details: REsolved GIANNA - resolving (2) Hyponatremia: Problem details: Na is improving Keep PO water restriction DS: Medications Discharge Medications Home Medications: Home Medications Medication Instructions Recorded Confirmed Lantus U-100 Insulin 25 unit SUBCUT BEDTIME 06/11/20 07/17/20 acetaminophen [Tylenol] 325 mg PO 0000,0600,1200,1800 06/11/20 07/17/20 atenolol 50 mg PO DAILY 06/11/20 07/17/20 atorvastatin [Lipitor] 10 mg PO DAILY@1700 06/11/20 07/17/20 carbamazepine [Tegretol] 200 mg PO BID@0800,1600 06/11/20 07/17/20 diazepam [Valium] 5 mg PO TID@0800,1200,1700 06/11/20 07/17/20 diazepam [Valium] 10 mg PO DAILY@2100 06/11/20 07/17/20 doxepin 100 mg PO DAILY@209906/11/20 07/17/20 insulin lispro [Humalog U-100 0 unit SUBCUT TID@0730,1100,1600 06/11/20 07/17/20 Insulin] lidocaine [Salonpas (lidocaine)] 1 patch TOPICAL DAILY@0600 06/11/20 07/17/20 metformin 1,000 mg PO BID@0900,1700 06/11/20 07/17/20 omeprazole 20 mg PO DAILY@1600 06/11/20 07/17/20 oxycodone 5 mg PO 0000,0600,1200,1800 06/11/20 07/17/20 prednisone 10 mg PO DAILY@0800 06/11/20 07/17/20 quetiapine [Seroquel] 25 mg PO BID@1700,2100 06/11/20 07/17/20 acetaminophen 650 mg PO TID@0800,1400,2000 06/13/20 07/17/20 albuterol sulfate 2.5 mg INHALATION Q4H PRN 06/13/20 07/17/20 artificial tear([id number]) 1 drp OPHTHALMIC (EYE) Q6H PRN 06/13/20 07/17/20 bisacodyl 10 mg PO DAILY PRN 06/13/20 07/17/20 diltiazem HCl 300 mg PO DAILY@1000 06/13/20 07/17/20 docusate sodium 100 mg PO BID@0900,1700 06/13/20 07/17/20 fluticasone propionate 2 spray INTRANASAL DAILY@2100 06/13/20 07/17/20 guaifenesin 100 mg PO Q4H PRN 06/13/20 07/17/20 ipratropium-albuterol 3 ml INHALATION 0600,1000,1400,1800 06/13/20 07/17/20 magnesium hydroxide [Milk of 30 ml PO DAILY PRN 06/13/20 07/17/20 Magnesia] nitroglycerin 0.4 mg SUBLINGUAL Q5M PRN 06/13/20 07/17/20 polyethylene glycol 3350 17 g PO DAILY 06/13/20 07/17/20 sodium chloride 1 spray INTRANASAL Q1H PRN 06/13/20 07/17/20 Previous Rx's Medication Instructions Recorded azithromycin [Zithromax] See Rx Instructions PO .COMPLEX #3 06/15/20 tab cefuroxime axetil 500 mg PO BID #10 tab 06/15/20 prednisone 40 mg PO DAILY #8 tab 06/15/20 DS: Summary Hospital Course Hospital Course: Mr. Jenkins is a 75 year old man with anxiety, depression, COPD, depression,poorly controlled diabetes due to dietary indescretions and erratic eating behaviors, SIADH, history of SVT, and trigeminal neuralgia. Mr. Jenkins had a hospitalization in late May for sepsis due to pneumonia and a COPD exacerbation. He recovered but should have follow up imaging to ensure resolution of his RML pneumonia and bilateral lower lobe anomolies in light of his SIADH. Mr. Jenkins also had a hospitalization for hyperkalemia where he was also found to be more hyponatremic than his usual. The etiology of the hyperkalemia was not fully ellucidated (likley multifactorial), but he has been stable since discharge. Mr. Jenkins has been placed a a fluid restriction of 1.5 liters which he has adhered to variably. His diabetes have been a challenge to manage. He has erratic eating behaviors and has had both high and low blood sugar levels. We moved his prandial insulin to postprandial with instructions to hold if he does not eat. He likely has gastroparesis from his diabetes and often requires a regimen. Mr. Jenkins has anxiety treated with diazepam. Mr. Jenkins has a MOLST that shows him as full code and that he desires aggressive measures if he decompensates. This was reviewed with the patient. The patient does require monitoring of his sodium as his drinking habits are erratic, and he does require close monitoring of his diet and blood sugars. Time Spent with Patient Time attestation: Total time spent providing and/or coordinating discharge services: Discharge coordination time: Less than 30 minutes Physical Exam Vital Signs: Vital Signs: Last Vital Signs Temp 98.2 F 07/20/20 08:00 Pulse 82 07/20/20 10:04 Resp 20 07/20/20 08:00 BP 100/59 L 07/20/20 08:49 Pulse Ox 93 07/20/20 08:00 Body Mass Index 25.7 DS: Data Data Completed and Pending Labs on day of discharge: Laboratory Tests 07/17/20 07/17/20 07/18/20 21:15 21:33 05:51 WBC 13.2 H RBC 3.92 L Hgb 9.8 L Hct 30.4 L MCV 77.6 L MCH 25.0 L MCHC 32.2 RDW 13.9 Plt Count 299 MPV 8.6 L Immature Gran % (Auto) 1.4 H Neut % (Auto) 78.0 H Lymph % (Auto) 10.3 L [place] % (Auto) 7.4 Eos % (Auto) 2.4 Baso % (Auto) 0.5 Lymph # (Auto) 1.4 [place] # (Auto) 1.0 Eos # (Auto) 0.3 Baso # (Auto) 0.1 Abs Immat Gran (auto) 0.19 H Absolute Neuts (auto) 10.3 H Absolute Nucleated RBC 0.000 Nucleated RBC % (auto) 0.0 Sodium 131 L Potassium 4.7 D Chloride 90 L Carbon Dioxide 31 H Anion Gap 15 BUN 19 H Creatinine 1.12 Estim Creat Clear Calc TNP Estimated GFR > 60 POC Glucose 82 Random Glucose 69 D Calcium 8.5 07/18/20 07/18/20 07/18/20 05:51 08:18 11:22 WBC RBC Hgb Hct MCV MCH MCHC RDW Plt Count MPV Immature Gran % (Auto) Neut % (Auto) Lymph % (Auto) [place] % (Auto) Eos % (Auto) Baso % (Auto) Lymph # (Auto) [place] # (Auto) Eos # (Auto) Baso # (Auto) Abs Immat Gran (auto) Absolute Neuts (auto) Absolute Nucleated RBC Nucleated RBC % (auto) Sodium 126 L Potassium 4.7 Chloride 87 L Carbon Dioxide 25 Anion Gap 19 BUN 19 H Creatinine 1.21 Estim Creat Clear Calc TNP Estimated GFR 59 POC Glucose 355 H* 65 Random Glucose 379 H* Calcium 8.0 L 07/18/20 07/18/20 07/18/20 12:18 16:05 19:40 WBC RBC Hgb Hct MCV MCH MCHC RDW Plt Count MPV Immature Gran % (Auto) Neut % (Auto) Lymph % (Auto) [place] % (Auto) Eos % (Auto) Baso % (Auto) Lymph # (Auto) [place] # (Auto) Eos # (Auto) Baso # (Auto) Abs Immat Gran (auto) Absolute Neuts (auto) Absolute Nucleated RBC Nucleated RBC % (auto) Sodium Potassium Chloride Carbon Dioxide Anion Gap BUN Creatinine Estim Creat Clear Calc Estimated GFR POC Glucose 85 188 H 195 H Random Glucose Calcium 07/19/20 07/19/20 07/19/20 07:15 09:56 11:13 WBC RBC Hgb Hct MCV MCH MCHC RDW Plt Count MPV Immature Gran % (Auto) Neut % (Auto) Lymph % (Auto) [place] % (Auto) Eos % (Auto) Baso % (Auto) Lymph # (Auto) [place] # (Auto) Eos # (Auto) Baso # (Auto) Abs Immat Gran (auto) Absolute Neuts (auto) Absolute Nucleated RBC Nucleated RBC % (auto) Sodium 134 L Potassium 4.8 Chloride 93 L Carbon Dioxide 33 H Anion Gap 13 BUN 14 Creatinine 1.15 Estim Creat Clear Calc 54.5 Estimated GFR > 60 POC Glucose 136 H 226 H Random Glucose 200 H D Calcium 8.4 07/19/20 07/19/20 07/20/20 16:19 19:52 07:30 WBC RBC Hgb Hct MCV MCH MCHC RDW Plt Count MPV Immature Gran % (Auto) Neut % (Auto) Lymph % (Auto) [place] % (Auto) Eos % (Auto) Baso % (Auto) Lymph # (Auto) [place] # (Auto) Eos # (Auto) Baso # (Auto) Abs Immat Gran (auto) Absolute Neuts (auto) Absolute Nucleated RBC Nucleated RBC % (auto) Sodium Potassium Chloride Carbon Dioxide Anion Gap BUN Creatinine Estim Creat Clear Calc Estimated GFR POC Glucose 282 H 349 H 123 H Random Glucose Calcium 07/20/20 07/20/20 07/24/20 08:47 16:05 16:01 WBC RBC Hgb Hct MCV MCH MCHC RDW Plt Count MPV Immature Gran % (Auto) Neut % (Auto) Lymph % (Auto) [place] % (Auto) Eos % (Auto) Baso % (Auto) Lymph # (Auto) [place] # (Auto) Eos # (Auto) Baso # (Auto) Abs Immat Gran (auto) Absolute Neuts (auto) Absolute Nucleated RBC Nucleated RBC % (auto) Sodium 130 L Potassium 4.6 Chloride 91 L Carbon Dioxide 27 Anion Gap 17 BUN 14 Creatinine 1.21 Estim Creat Clear Calc 51.8 Estimated GFR 59 POC Glucose 284 H 133 H Random Glucose 223 H Calcium 8.3 L 07/25/20 21:59 WBC RBC Hgb Hct MCV MCH MCHC RDW Plt Count MPV Immature Gran % (Auto) Neut % (Auto) Lymph % (Auto) [place] % (Auto) Eos % (Auto) Baso % (Auto) Lymph # (Auto) [place] # (Auto) Eos # (Auto) Baso # (Auto) Abs Immat Gran (auto) Absolute Neuts (auto) Absolute Nucleated RBC Nucleated RBC % (auto) Sodium Potassium Chloride Carbon Dioxide Anion Gap BUN Creatinine Estim Creat Clear Calc Estimated GFR POC Glucose 248 H Random Glucose Calcium Discharge Plan Discharge Anticipated Discharge Date/Time: 07/20/20 10:24 Patient Disposition: Xfer SNF Referrals: Physician,Unknown [Primary Care Provider] - Discharge Medications: Continued acetaminophen [Tylenol] 325 mg Tablet 325 mg PO 0000,0600,1200,1800 RF: 0 Lantus U-100 Insulin 100 unit/mL Solution 25 unit SUBCUT BEDTIME RF: 0 atorvastatin [Lipitor] 10 mg Tablet 10 mg PO DAILY@1700 RF: 0 doxepin 10 mg Capsule 100 mg PO DAILY@2100 RF: 0 carbamazepine [Tegretol] 200 mg Tablet 200 mg PO BID@0800,1600 RF: 0 insulin lispro [Humalog U-100 Insulin] 100 unit/mL Solution 0 unit SUBCUT TID@0730,1100,1600 RF: 0 diazepam [Valium] 10 mg Tablet 10 mg PO DAILY@2100 RF: 0 atenolol 50 mg Tablet 50 mg PO DAILY RF: 0 diazepam [Valium] 5 mg Tablet 5 mg PO TID@0800,1200,1700 RF: 0 quetiapine [Seroquel] 25 mg Tablet 25 mg PO BID@1700,2100 RF: 0 prednisone 10 mg Tablet 10 mg PO DAILY@0800 RF: 0 Hold Instructions: Resume on 06/19/20. lidocaine [Salonpas (lidocaine)] 4 % Adhesive Patch,Medicated 1 patch TOPICAL DAILY@0600 RF: 0 metformin 1,000 mg Tablet 1,000 mg PO BID@0900,1700 RF: 0 omeprazole 20 mg Capsule,Delayed Release(Dr/Ec) 20 mg PO DAILY@1600 RF: 0 oxycodone 5 mg Tablet 5 mg PO 0000,0600,1200,1800 RF: 0 acetaminophen 325 mg Tablet 650 mg PO TID@0800,1400,2000 RF: 0 diltiazem HCl 300 mg Capsule,Extended Release 24hr 300 mg PO DAILY@1000 RF: 0 docusate sodium 100 mg Capsule 100 mg PO BID@0900,1700 RF: 0 fluticasone propionate 50 mcg/actuation [place],Suspension 2 spray INTRANASAL DAILY@2100 RF: 0 ipratropium-albuterol 0.5 mg-3 mg(2.5 mg base)/3 mL Solution For Nebulization 3 ml INHALATION 0600,1000,1400,1800 RF: 0 albuterol sulfate 2.5 mg /3 mL (0.083 %) Solution For Nebulization 2.5 mg INHALATION Q4H PRN (Reason: Shortness Of Breath) RF: 0 guaifenesin 100 mg/5 mL Liquid 100 mg PO Q4H PRN (Reason: Cough) RF: 0 artificial tear([id number]) 0.1-0.3-0.2 % Drops 1 drp OPHTHALMIC (EYE) Q6H PRN (Reason: Dry Eye(S)) RF: 0 magnesium hydroxide [Milk of Magnesia] 400 mg/5 mL Suspension 30 ml PO DAILY PRN (Reason: Constipation) RF: 0 nitroglycerin 0.4 mg Tablet, Sublingual 0.4 mg SUBLINGUAL Q5M PRN (Reason: Chest Pain) RF: 0 polyethylene glycol 3350 17 gram/dose Powder 17 g PO DAILY RF: 0 sodium chloride 0.65 % Mist 1 spray INTRANASAL Q1H PRN (Reason: Dry Nasal Passages) RF: 0 bisacodyl 5 mg Tablet 10 mg PO DAILY PRN (Reason: Constipation) RF: 0 prednisone 20 mg tablet 40 mg PO DAILY Qty: 8 RF: 0 cefuroxime axetil 500 mg tablet 500 mg PO BID Qty: 10 RF: 0 azithromycin [Zithromax] 500 mg tablet See Rx Instructions PO .COMPLEX Qty: 3 RF: 0 Discharge Orders: Discharge Order (Routine); Ordered 07/20/20 Ordered By: Jonathan Cuenca Diet: advance to usual diet Activity on Discharge: As tolerated Discharge Date/Time: 07/20/20 11:30 Visit Report Forms: Patient Portal Discharge page Care Plan Goals: Prevent rehospitalization and high potassium Health Concerns: chronic hyponatremia Plan of Treatment: Fluid restriction of no more than 4 glasses
== END 2020-07-20 11:30 | disposition skilled nursing facility (03) | DRG 641 ==
PROVIDERS: Internal Medicine; Physician Assistant Medical; Admitting Provider Family Medicine; Visit Provider Internal Medicine
DX: E87.5 Hyperkalemia (principal); J44.0 Chronic obstructive pulmonary disease with (acute) lower respiratory infection; N17.9 Acute kidney failure, unspecified; F41.9 Anxiety disorder, unspecified; E11.40 Type 2 diabetes mellitus with diabetic neuropathy, unspecified; I10 Essential (primary) hypertension; Z88.6 Allergy status to analgesic agent; Z79.4 Long term (current) use of insulin; Z79.52 Long term (current) use of systemic steroids; Z79.891 Long term (current) use of opiate analgesic; Z79.899 Other long term (current) drug therapy
CPT/HCPCS: 36415; 80048; 82947; 85025; 93005; 94640; 99217

== ENCOUNTER → 2020-08-18 11:09 | Outpatient (BNVA) | payer MEDICARE, SELFPAY | PROVIDERS: PCP Internal Medicine; Visit Provider Internal Medicine | DX: J44.0 Chronic obstructive pulmonary disease with (acute) lower respiratory infection (principal); J30.9 Allergic rhinitis, unspecified | CPT/HCPCS: 99212 ==

== ENCOUNTER 2020-08-20 05:51 | Outpatient (REF) | payer MEDICARE, SELFPAY ==
[2020-08-20 07:31] LABS: MANUAL DIFF FLAG NO
[2020-08-20 07:35] LABS: Basophils Absolute Auto 0.1 X10*3/uL (0.0-0.2); Basophils Percent Auto 0.8 % (0-2); Eosinophils Absolute Auto 0.2 X10*3/uL (0.0-0.4); Eosinophils Percent Auto 2.6 % (0-4); Hematocrit 28.4 % (42-52); Hemoglobin 8.7 g/dl (14.0-18.0); Imm Gran Abs Auto 0.14 X10*3/uL (0.00-0.03); Imm Gran Pct Auto 1.8 % (0.0-0.4); Lymphocytes Absolute Auto 1.6 X10*3/uL (1.2-4.9); Lymphocytes Percent Auto 20.2 % (20-40); Mean Corpuscular HGB Conc 30.6 g/dl (31.0-36.0); Mean Corpuscular Hemoglobin 24.6 pg (27.0-33.0); Mean Corpuscular Volume 80.5 fL (80-98); Mean Platelet Volume 9.4 fL (9.4-12.4); Monocytes Absolute Auto 0.7 X10*3/uL (0.1-1.2); Monocytes Percent Auto 8.3 % (2-11); Neutrophils Absolute Auto 5.3 X10*3/uL (2.0-8.3); Neutrophils Percent Auto 66.3 % (45-73); Platelet Count 222 X10*3/uL (160-400); Red Blood Count 3.53 X10*6/uL (4.60-5.80); Red Cell Distribution Width 15.3 % (11.0-16.0)
== END 2020-08-20 05:52 | disposition home or self-care (01) ==
LOC: HO.HSH2E 05:51
PROVIDERS: Visit Provider Internal Medicine Endocrinology, Diabetes & Metabolism
DX: D64.9 Anemia, unspecified (principal)
CPT/HCPCS: 36415; 85025

== ENCOUNTER 2020-08-23 15:00 | Outpatient (REF) | payer MEDICARE, SELFPAY ==
[2020-08-24 08:11] LABS: OBS1 NEG (NEG)
[2020-08-24 08:12] LABS: OBS Int Ctl Valid YES
[2020-08-24 08:12] LABS: OBS Int Ctl Valid YES; OBS1 NEG (NEG)
== END 2020-08-23 15:01 | disposition home or self-care (01) ==
LOC: HO.HSH2E 15:00
PROVIDERS: Visit Provider Internal Medicine Endocrinology, Diabetes & Metabolism
DX: I10 Essential (primary) hypertension (principal); E11.9 Type 2 diabetes mellitus without complications; D64.9 Anemia, unspecified
CPT/HCPCS: 82272

== ENCOUNTER 2020-08-24 05:46 | Outpatient (REF) | payer MEDICARE, SELFPAY ==
[2020-08-24 08:46] LABS: Ferritin 22 ng/mL (20-250)
[2020-08-24 09:00] LABS: Vitamin B12 291 pg/mL (200-900)
[2020-08-24 14:50] LABS: OBS Int Ctl Valid YES; OBS1 NEG (NEG)
[2020-08-25 11:52] LABS: Haptoglobin 169 mg/dL (43-212)
== END 2020-08-24 05:47 | disposition home or self-care (01) ==
LOC: HO.HSH2E 05:46
PROVIDERS: Visit Provider Internal Medicine Endocrinology, Diabetes & Metabolism
DX: D64.9 Anemia, unspecified (principal); E11.9 Type 2 diabetes mellitus without complications; I10 Essential (primary) hypertension
CPT/HCPCS: 36415; 82272; 82607; 82728; 83010

== ENCOUNTER 2020-09-01 05:30 | Outpatient (REF) | payer MEDICARE, SELFPAY ==
[2020-09-01 09:08] LABS: Anion Gap 11 (12-20); Blood Urea Nitrogen 16 mg/dL (9-16); Carbon Dioxide 33 mmol/L (22-29); Chloride 93 mmol/L (96-108); Estimated Glomerular Filt Rate > 60; Potassium 4.5 mmol/L (3.3-5.1); Sodium 132 mmol/L (135-145)
== END 2020-09-01 05:31 | disposition home or self-care (01) ==
LOC: HO.HSH2E 05:30
PROVIDERS: Visit Provider Internal Medicine Endocrinology, Diabetes & Metabolism
DX: I10 Essential (primary) hypertension (principal); E11.9 Type 2 diabetes mellitus without complications
CPT/HCPCS: 36415; 80051; 82565; 84520

== ENCOUNTER 2020-09-21 05:36 | Outpatient (REF) | payer MEDICARE, SELFPAY ==
[2020-09-21 07:12] LABS: MANUAL DIFF FLAG NO
[2020-09-21 07:16] LABS: Basophils Percent Auto 0.6 % (0-2); Eosinophils Absolute Auto 0.2 X10*3/uL (0.0-0.4); Eosinophils Percent Auto 2.7 % (0-4); Hematocrit 27.3 % (42-52); Hemoglobin 9.2 g/dl (14.0-18.0); Imm Gran Pct Auto 1.5 % (0.0-0.4); Lymphocytes Absolute Auto 1.2 X10*3/uL (1.2-4.9); Lymphocytes Percent Auto 18.1 % (20-40); Mean Corpuscular HGB Conc 33.7 g/dl (31.0-36.0); Mean Corpuscular Hemoglobin 26.6 pg (27.0-33.0); Mean Corpuscular Volume 78.9 fL (80-98); Mean Platelet Volume 9.1 fL (9.4-12.4); Monocytes Absolute Auto 0.5 X10*3/uL (0.1-1.2); Monocytes Percent Auto 7.5 % (2-11); Neutrophils Absolute Auto 4.6 X10*3/uL (2.0-8.3); Neutrophils Percent Auto 69.6 % (45-73); Platelet Count 214 X10*3/uL (160-400); Red Blood Count 3.46 X10*6/uL (4.60-5.80); Red Cell Distribution Width 16.8 % (11.0-16.0); White Blood Count 6.6 X10*3/uL (4.8-10.8)
[2020-09-21 07:58] LABS: Alanine Aminotransferase 12 U/L (0-40); Albumin Level 3.8 g/dL (3.5-5.0); Alkaline Phosphatase 67 U/L (39-117); Anion Gap 13 (12-20); Aspartate Amino Transferase 11 U/L (5-37); Bilirubin Total 0.2 mg/dL (0.0-1.0); Blood Urea Nitrogen 20 mg/dL (9-16); Calcium 8.3 mg/dL (8.4-10.2); Carbon Dioxide 31 mmol/L (22-29); Chloride 87 mmol/L (96-108); Estimated Glomerular Filt Rate > 60; Glucose Fasting 110 mg/dL (60-99); Sodium 126 mmol/L (135-145); Total Protein 5.4 g/dL (6.5-8.0)
[2020-09-21 08:19] LABS: Ferritin 34 ng/mL (20-250)
[2020-09-21 12:07] LABS: Uric Acid 4.5 mg/dL (3.4-7.0)
== END 2020-09-21 05:37 | disposition home or self-care (01) ==
LOC: HO.HSH2E 05:36
PROVIDERS: Visit Provider Internal Medicine Endocrinology, Diabetes & Metabolism
DX: E87.0 Hyperosmolality and hypernatremia (principal); J44.9 Chronic obstructive pulmonary disease, unspecified; I10 Essential (primary) hypertension; E11.9 Type 2 diabetes mellitus without complications
CPT/HCPCS: 36415; 80053; 82728; 84300; 84550; 85025

== ENCOUNTER 2020-09-24 07:27 | Outpatient (REF) | payer MEDICARE, SELFPAY ==
[2020-09-24 09:07] LABS: Anion Gap 12 (12-20); Carbon Dioxide 34 mmol/L (22-29); Chloride 91 mmol/L (96-108); Cholesterol 183 mg/dL; HDL Cholesterol 59 mg/dL; LDL Cholesterol Calculated 91 mg/dl; Potassium 4.5 mmol/L (3.3-5.1); Sodium 132 mmol/L (135-145); Triglycerides 167 mg/dL
== END 2020-09-24 07:28 | disposition home or self-care (01) ==
LOC: HO.HSH2E 07:27
PROVIDERS: Visit Provider Internal Medicine Endocrinology, Diabetes & Metabolism
DX: E87.0 Hyperosmolality and hypernatremia (principal)
CPT/HCPCS: 36415; 80051; 80061

== ENCOUNTER 2020-10-01 05:34 | Outpatient (REF) | payer MEDICARE, SELFPAY ==
[2020-10-01 07:35] LABS: Anion Gap 10 (12-20); Carbon Dioxide 33 mmol/L (22-29); Chloride 101 mmol/L (96-108); Potassium 4.8 mmol/L (3.3-5.1); Sodium 139 mmol/L (135-145)
== END 2020-10-01 05:35 | disposition home or self-care (01) ==
LOC: HO.HSH2E 05:34
PROVIDERS: Visit Provider Internal Medicine Endocrinology, Diabetes & Metabolism
DX: E85.89 Other amyloidosis (principal)
CPT/HCPCS: 36415; 80051

== ENCOUNTER → 2020-10-07 11:20 | Outpatient (BNVA) | payer MEDICARE, SELFPAY | PROVIDERS: PCP Internal Medicine Endocrinology, Diabetes & Metabolism; Visit Provider Internal Medicine | DX: J44.0 Chronic obstructive pulmonary disease with (acute) lower respiratory infection (principal); J96.91 Respiratory failure, unspecified with hypoxia; J30.9 Allergic rhinitis, unspecified; Z79.899 Other long term (current) drug therapy | CPT/HCPCS: 99212 ==

== ENCOUNTER 2020-10-29 07:51 | Outpatient (REF) | payer MEDICARE, SELFPAY ==
[2020-10-29 09:29] LABS: MANUAL DIFF FLAG NO
[2020-10-29 09:48] LABS: Basophils Absolute Auto 0.1 X10*3/uL (0.0-0.2); Basophils Percent Auto 0.8 % (0-2); Eosinophils Absolute Auto 0.3 X10*3/uL (0.0-0.4); Eosinophils Percent Auto 3.5 % (0-4); Hematocrit 29.8 % (42-52); Hemoglobin 10.2 g/dl (14.0-18.0); Imm Gran Abs Auto 0.16 X10*3/uL (0.00-0.03); Imm Gran Pct Auto 2.1 % (0.0-0.4); Lymphocytes Absolute Auto 1.5 X10*3/uL (1.2-4.9); Mean Corpuscular HGB Conc 34.2 g/dl (31.0-36.0); Mean Corpuscular Hemoglobin 28.4 pg (27.0-33.0); Mean Platelet Volume 8.9 fL (9.4-12.4); Monocytes Absolute Auto 0.5 X10*3/uL (0.1-1.2); Monocytes Percent Auto 6.7 % (2-11); Neutrophils Percent Auto 66.9 % (45-73); Platelet Count 203 X10*3/uL (160-400); Red Blood Count 3.59 X10*6/uL (4.60-5.80); Red Cell Distribution Width 16.1 % (11.0-16.0); White Blood Count 7.5 X10*3/uL (4.8-10.8)
[2020-10-29 10:01] LABS: Anion Gap 14 (12-20); Carbon Dioxide 30 mmol/L (22-29); Chloride 91 mmol/L (96-108); Potassium 5.1 mmol/L (3.3-5.1); Sodium 130 mmol/L (135-145)
== END 2020-10-29 07:52 | disposition home or self-care (01) ==
LOC: HO.HSH2E 07:51
PROVIDERS: Visit Provider Internal Medicine Endocrinology, Diabetes & Metabolism
DX: J44.9 Chronic obstructive pulmonary disease, unspecified (principal); I10 Essential (primary) hypertension; E11.9 Type 2 diabetes mellitus without complications
CPT/HCPCS: 36415; 80051; 85025

== ENCOUNTER 2020-11-12 07:23 | Outpatient (REF) | payer MEDICARE, SELFPAY ==
[2020-11-12 09:28] LABS: Anion Gap 14 (12-20); Carbon Dioxide 32 mmol/L (22-29); Chloride 96 mmol/L (96-108); Potassium 5.1 mmol/L (3.3-5.1); Sodium 137 mmol/L (135-145)
== END 2020-11-12 07:24 | disposition home or self-care (01) ==
LOC: HO.HSH2E 07:23
PROVIDERS: Visit Provider Internal Medicine Endocrinology, Diabetes & Metabolism
DX: E87.1 Hypo-osmolality and hyponatremia (principal); E11.9 Type 2 diabetes mellitus without complications
CPT/HCPCS: 36415; 80051

== ENCOUNTER 2021-02-17 | Outpatient (REF) | payer MEDICARE, SELFPAY ==
[2021-02-17 07:44] LABS: MANUAL DIFF FLAG NO
[2021-02-17 07:45] LABS: Basophils Absolute Auto 0.1 X10*3/uL (0.0-0.2); Basophils Percent Auto 0.6 % (0-2); Eosinophils Absolute Auto 0.3 X10*3/uL (0.0-0.4); Eosinophils Percent Auto 3.7 % (0-4); Hematocrit 31.3 % (42-52); Hemoglobin 10.7 g/dl (14.0-18.0); Imm Gran Pct Auto 2.1 % (0.0-0.4); Lymphocytes Absolute Auto 1.6 X10*3/uL (1.2-4.9); Lymphocytes Percent Auto 16.9 % (20-40); Mean Corpuscular HGB Conc 34.2 g/dl (31.0-36.0); Mean Corpuscular Hemoglobin 30.4 pg (27.0-33.0); Mean Corpuscular Volume 88.9 fL (80-98); Mean Platelet Volume 8.7 fL (9.4-12.4); Monocytes Absolute Auto 0.6 X10*3/uL (0.1-1.2); Monocytes Percent Auto 6.8 % (2-11); Neutrophils Absolute Auto 6.5 X10*3/uL (2.0-8.3); Neutrophils Percent Auto 69.9 % (45-73); Platelet Count 230 X10*3/uL (160-400); Red Blood Count 3.52 X10*6/uL (4.60-5.80); Red Cell Distribution Width 12.2 % (11.0-16.0); White Blood Count 9.3 X10*3/uL (4.8-10.8)
[2021-02-17 08:06] LABS: Alanine Aminotransferase 8 U/L (0-40); Albumin Level 4.2 g/dL (3.5-5.0); Alkaline Phosphatase 76 U/L (39-117); Anion Gap 16 (12-20); Aspartate Amino Transferase 10 U/L (5-37); Bilirubin Total 0.2 mg/dL (0.0-1.0); Blood Urea Nitrogen 18 mg/dL (9-16); Calcium 9.1 mg/dL (8.4-10.2); Carbon Dioxide 27 mmol/L (22-29); Chloride 94 mmol/L (96-108); Estimated Glomerular Filt Rate > 60; Glucose Fasting 167 mg/dL (60-99); Iron 47 mcg/dL (45-160); Potassium 5.2 mmol/L (3.3-5.1); Sodium 132 mmol/L (135-145)
[2021-02-17 08:19] LABS: Ferritin 45 ng/mL (20-250); Thyroid Stimulating Hormone 2.21 uIU/mL (0.32-4.0)
[2021-02-17 08:25] LABS: Percent Iron Saturation 18 % (15-50); Total Iron Binding Capacity 263 mcg/dL (228-428); Unsaturated Iron Binding 216 ug/dL
[2021-02-17 08:59] LABS: Folate 5.5 ng/mL (> or = 4.0); Vitamin B12 225 pg/mL (200-900)
== END 2021-02-17 00:01 | disposition home or self-care (01) ==
LOC: HO.HSH4W
PROVIDERS: Visit Provider Internal Medicine
DX: E11.9 Type 2 diabetes mellitus without complications (principal); D64.9 Anemia, unspecified; R03.0 Elevated blood-pressure reading, without diagnosis of hypertension
CPT/HCPCS: 36415; 80053; 82607; 82728; 82746; 83540; 84443; 85025

== ENCOUNTER → 2021-03-08 12:57 | Outpatient (BNVA) | payer MEDICARE, SELFPAY | PROVIDERS: PCP Internal Medicine Endocrinology, Diabetes & Metabolism; Visit Provider Internal Medicine | DX: J30.9 Allergic rhinitis, unspecified (principal); J44.0 Chronic obstructive pulmonary disease with (acute) lower respiratory infection; J96.91 Respiratory failure, unspecified with hypoxia | CPT/HCPCS: 99212 ==

== ENCOUNTER 2021-03-29 07:04 | Outpatient (REF) | payer MEDICARE, SELFPAY ==
[2021-03-29 10:22] LABS: Erythrocyte Sedimentation Rate 9 MM/HR (0-15)
== END 2021-03-29 07:05 | disposition home or self-care (01) ==
LOC: HO.HSH4W 07:04
PROVIDERS: Visit Provider Internal Medicine
DX: R51.9 Headache, unspecified (principal)
CPT/HCPCS: 36415; 85652

== ENCOUNTER 2021-04-27 13:17 | Outpatient (REF) | payer MEDICARE, SELFPAY ==
[2021-04-27 13:37] LABS: MANUAL DIFF FLAG NO
[2021-04-27 13:39] LABS: Basophils Absolute Auto 0.1 X10*3/uL (0.0-0.2); Basophils Percent Auto 0.5 % (0-2); Eosinophils Absolute Auto 0.3 X10*3/uL (0.0-0.4); Eosinophils Percent Auto 1.9 % (0-4); Hematocrit 32.7 % (42-52); Imm Gran Abs Auto 0.57 X10*3/uL (0.00-0.03); Imm Gran Pct Auto 3.9 % (0.0-0.4); Lymphocytes Absolute Auto 0.9 X10*3/uL (1.2-4.9); Lymphocytes Percent Auto 6.1 % (20-40); Mean Corpuscular HGB Conc 33.6 g/dl (31.0-36.0); Mean Corpuscular Hemoglobin 30.5 pg (27.0-33.0); Mean Corpuscular Volume 90.6 fL (80-98); Mean Platelet Volume 8.6 fL (9.4-12.4); Monocytes Absolute Auto 0.6 X10*3/uL (0.1-1.2); Neutrophils Absolute Auto 12.2 X10*3/uL (2.0-8.3); Neutrophils Percent Auto 83.6 % (45-73); Platelet Count 226 X10*3/uL (160-400); Red Blood Count 3.61 X10*6/uL (4.60-5.80); Red Cell Distribution Width 12.8 % (11.0-16.0); White Blood Count 14.6 X10*3/uL (4.8-10.8)
[2021-04-27 13:45] LABS: Prothrombin Time 11.1 SEC (9.9-13.0)
[2021-04-27 13:48] LABS: Partial Thromboplastin Time 35.8 SEC (24.1-38.0)
[2021-04-27 13:53] LABS: Anion Gap 15 (12-20); Blood Urea Nitrogen 24 mg/dL (9-16); Calcium 8.9 mg/dL (8.4-10.2); Carbon Dioxide 27 mmol/L (22-29); Chloride 96 mmol/L (96-108); Estimated Glomerular Filt Rate > 60; Glucose Random 138 mg/dL (60-115); Magnesium 2.2 mg/dL (1.6-2.6); Potassium 5.8 mmol/L (3.3-5.1); Sodium 132 mmol/L (135-145)
[2021-04-27 13:57] LABS: B Type Natriuretic Peptide 357 pg/mL (<100)
[2021-04-27 14:14] LABS: Thyroid Stimulating Hormone 1.19 uIU/mL (0.32-4.0)
== END 2021-04-27 13:18 | disposition home or self-care (01) ==
LOC: HO.HSH4W 13:17
PROVIDERS: Visit Provider Internal Medicine
DX: D64.9 Anemia, unspecified (principal)
CPT/HCPCS: 36415; 80048; 83735; 83880; 84443; 85025; 85610; 85730

== ENCOUNTER 2021-04-28 06:47 | Outpatient (REF) | payer MEDICARE, SELFPAY ==
[2021-04-28 08:13] LABS: Albumin Level 4.2 g/dL (3.5-5.0); Anion Gap 12 (12-20); Blood Urea Nitrogen 23 mg/dL (9-16); Carbon Dioxide 28 mmol/L (22-29); Chloride 98 mmol/L (96-108); Estimated Glomerular Filt Rate > 60; Potassium 4.6 mmol/L (3.3-5.1); Sodium 133 mmol/L (135-145)
== END 2021-04-28 06:48 | disposition home or self-care (01) ==
LOC: HO.HSH4W 06:47
PROVIDERS: Visit Provider Internal Medicine
DX: I50.9 Heart failure, unspecified (principal)
CPT/HCPCS: 36415; 80051; 82040; 82565; 84520

== ENCOUNTER 2021-04-29 11:56 | Outpatient (REF) | payer MEDICARE, SELFPAY ==
[2021-04-29 12:46] LABS: Troponin-I High Sensitivity 5.4 ng/L (<3.5-35.0)
[2021-04-29 12:56] LABS: Anion Gap 17 (12-20); Carbon Dioxide 25 mmol/L (22-29); Chloride 98 mmol/L (96-108); Estimated Glomerular Filt Rate > 60; Potassium 5.5 mmol/L (3.3-5.1); Sodium 134 mmol/L (135-145)
[2021-04-29 13:46] LABS: Blood Urea Nitrogen 24 mg/dL (9-16)
== END 2021-04-29 11:57 | disposition home or self-care (01) ==
LOC: HO.HSH4W 11:56
PROVIDERS: Visit Provider Internal Medicine
DX: I48.91 Unspecified atrial fibrillation (principal)
CPT/HCPCS: 36415; 80051; 82565; 84484; 84520

== ENCOUNTER 2021-05-03 08:50 | Outpatient (REF) | payer MEDICARE, SELFPAY ==
[2021-05-03 07:55] LABS: Anion Gap 13 (12-20); Blood Urea Nitrogen 19 mg/dL (9-16); Calcium 8.9 mg/dL (8.4-10.2); Carbon Dioxide 31 mmol/L (22-29); Chloride 97 mmol/L (96-108); Estimated Glomerular Filt Rate > 60; Glucose Fasting 84 mg/dL (60-99); Potassium 4.9 mmol/L (3.3-5.1); Sodium 136 mmol/L (135-145)
== END 2021-05-03 08:51 | disposition home or self-care (01) ==
LOC: HO.HSH4W 08:50
PROVIDERS: Visit Provider Internal Medicine
DX: I10 Essential (primary) hypertension (principal); N28.9 Disorder of kidney and ureter, unspecified
CPT/HCPCS: 36415; 80048

== ENCOUNTER 2021-05-20 12:39 | Outpatient (REF) | payer MEDICARE, SELFPAY ==
[2021-05-20 08:15] LABS: Anion Gap 12 (12-20); Blood Urea Nitrogen 21 mg/dL (9-16); Carbon Dioxide 32 mmol/L (22-29); Chloride 94 mmol/L (96-108); Estimated Glomerular Filt Rate > 60; Glucose Fasting 72 mg/dL (60-99); Potassium 4.6 mmol/L (3.3-5.1); Sodium 133 mmol/L (135-145)
== END 2021-05-20 12:40 | disposition home or self-care (01) ==
LOC: HO.HSH4W 12:39
PROVIDERS: Visit Provider Internal Medicine
DX: E11.9 Type 2 diabetes mellitus without complications (principal); I48.92 Unspecified atrial flutter
CPT/HCPCS: 36415; 80051; 82565; 82947; 84520

== ENCOUNTER 2021-05-24 10:26 | Outpatient (REF) | payer MEDICARE, SELFPAY ==
[2021-05-24 07:23] LABS: Anion Gap 13 (12-20); Blood Urea Nitrogen 20 mg/dL (9-16); Calcium 8.8 mg/dL (8.4-10.2); Carbon Dioxide 30 mmol/L (22-29); Chloride 96 mmol/L (96-108); Estimated Glomerular Filt Rate 60; Glucose Fasting 123 mg/dL (60-99); Potassium 4.7 mmol/L (3.3-5.1); Sodium 134 mmol/L (135-145)
[2021-05-24 07:38] LABS: Digoxin 0.7 ng/mL (0.8-2.0)
== END 2021-05-24 10:27 | disposition home or self-care (01) ==
LOC: HO.HSH4W 10:26
PROVIDERS: Visit Provider Internal Medicine
DX: E11.9 Type 2 diabetes mellitus without complications (principal); I48.92 Unspecified atrial flutter
CPT/HCPCS: 36415; 80048; 80162

== ENCOUNTER 2021-06-01 08:10 | Outpatient (REF) | payer MEDICARE, SELFPAY ==
[2021-06-01 09:02] LABS: Estimated Average Glucose 151 mg/dL; Hemoglobin A1c % 6.9 %
[2021-06-01 09:26] LABS: Digoxin 0.6 ng/mL (0.8-2.0)
== END 2021-06-01 08:11 | disposition home or self-care (01) ==
LOC: HO.HSH4W 08:10
PROVIDERS: Visit Provider Internal Medicine
DX: I48.91 Unspecified atrial fibrillation (principal); I48.92 Unspecified atrial flutter; Z79.899 Other long term (current) drug therapy
CPT/HCPCS: 36415; 80162; 83036

== ENCOUNTER 2021-06-11 10:52 | Outpatient (REF) | payer MEDICARE, SELFPAY ==
[2021-06-11 11:19] LABS: MANUAL DIFF FLAG NO
[2021-06-11 11:21] LABS: Basophils Percent Auto 0.2 % (0-2); Eosinophils Percent Auto 0.1 % (0-4); Hematocrit 32.1 % (42.0-52.0); Hemoglobin 10.5 g/dl (14.0-18.0); Imm Gran Abs Auto 0.18 X10*3/uL (0.00-0.03); Imm Gran Pct Auto 1.4 % (0.0-0.4); Lymphocytes Absolute Auto 0.6 X10*3/uL (1.2-4.9); Lymphocytes Percent Auto 4.3 % (20-40); Mean Corpuscular HGB Conc 32.7 g/dl (31.0-36.0); Mean Corpuscular Hemoglobin 30.4 pg (27.0-33.0); Mean Platelet Volume 9.5 fL (9.4-12.4); Monocytes Absolute Auto 0.7 X10*3/uL (0.1-1.2); Monocytes Percent Auto 5.7 % (2-11); Neutrophils Absolute Auto 11.5 x10*3/uL (2.0-8.3); Neutrophils Percent Auto 88.3 % (45-73); Platelet Count 227 X10*3/uL (160-400); Red Blood Count 3.45 X10*6/uL (4.60-5.80); Red Cell Distribution Width 12.6 % (11.0-16.0)
[2021-06-11 11:54] LABS: Anion Gap 17 (12-20); B Type Natriuretic Peptide 453 pg/mL (<100); Blood Urea Nitrogen 29 mg/dL (9-16); Carbon Dioxide 28 mmol/L (22-29); Chloride 96 mmol/L (96-108); Estimated Glomerular Filt Rate 48; Potassium 5.2 mmol/L (3.3-5.1); Sodium 136 mmol/L (135-145)
[2021-06-11 11:56] LABS: Glucose Random 468 mg/dL (60-115)
[2021-06-11 12:27] LABS: Digoxin 1.4 ng/mL (0.8-2.0)
== END 2021-06-11 10:53 | disposition home or self-care (01) ==
LOC: HO.HSH4W 10:52
PROVIDERS: Visit Provider Internal Medicine
DX: J44.9 Chronic obstructive pulmonary disease, unspecified (principal); I48.91 Unspecified atrial fibrillation; R06.02 Shortness of breath; Z79.899 Other long term (current) drug therapy
CPT/HCPCS: 36415; 80051; 80162; 82565; 82947; 83880; 84520; 85025

== ENCOUNTER 2021-06-16 07:05 | Outpatient (REF) | payer MEDICARE, SELFPAY ==
[2021-06-16 08:21] LABS: Anion Gap 16 (12-20); Blood Urea Nitrogen 31 mg/dL (9-16); Calcium 9.4 mg/dL (8.4-10.2); Carbon Dioxide 35 mmol/L (22-29); Chloride 95 mmol/L (96-108); Estimated Glomerular Filt Rate > 60; Glucose Fasting 73 mg/dL (60-99); Potassium 4.5 mmol/L (3.3-5.1); Sodium 141 mmol/L (135-145)
== END 2021-06-16 07:06 | disposition home or self-care (01) ==
LOC: HO.HSH4W 07:05
PROVIDERS: Visit Provider Internal Medicine
DX: N18.9 Chronic kidney disease, unspecified (principal); E11.9 Type 2 diabetes mellitus without complications
CPT/HCPCS: 36415; 80048

== ENCOUNTER 2021-06-24 06:09 | Outpatient (REF) | payer MEDICARE, SELFPAY ==
[2021-06-24 08:11] LABS: Anion Gap 14 (12-20); Blood Urea Nitrogen 34 mg/dL (9-16); Calcium 9.3 mg/dL (8.4-10.2); Carbon Dioxide 34 mmol/L (22-29); Chloride 95 mmol/L (96-108); Estimated Glomerular Filt Rate 57; Glucose Fasting 121 mg/dL (60-99); Potassium 4.3 mmol/L (3.3-5.1); Sodium 139 mmol/L (135-145)
[2021-06-24 08:42] LABS: Digoxin 0.6 ng/mL (0.8-2.0)
== END 2021-06-24 06:10 | disposition home or self-care (01) ==
LOC: HO.HSH4W 06:09
PROVIDERS: Visit Provider Internal Medicine
DX: I48.91 Unspecified atrial fibrillation (principal); I50.9 Heart failure, unspecified
CPT/HCPCS: 36415; 80048; 80162

== ENCOUNTER 2021-06-28 08:13 | Outpatient (REF) | payer MEDICARE, SELFPAY ==
[2021-06-28 07:39] LABS: Anion Gap 13 (12-20); Blood Urea Nitrogen 26 mg/dL (9-16); Carbon Dioxide 35 mmol/L (22-29); Chloride 96 mmol/L (96-108); Estimated Glomerular Filt Rate 58; Glucose Fasting 209 mg/dL (60-99); Magnesium 2.3 mg/dL (1.6-2.6); Potassium 5.1 mmol/L (3.3-5.1); Sodium 139 mmol/L (135-145)
== END 2021-06-28 08:14 | disposition home or self-care (01) ==
LOC: HO.HSH4W 08:13
PROVIDERS: Visit Provider Internal Medicine
DX: E11.9 Type 2 diabetes mellitus without complications (principal); I48.91 Unspecified atrial fibrillation
CPT/HCPCS: 36415; 80051; 80162; 82565; 82947; 83735; 84520

== ENCOUNTER 2021-07-12 06:33 | Outpatient (REF) | payer MEDICARE, SELFPAY ==
[2021-07-12 08:08] LABS: Anion Gap 13 (12-20); Blood Urea Nitrogen 27 mg/dL (9-16); Calcium 9.7 mg/dL (8.4-10.2); Carbon Dioxide 37 mmol/L (22-29); Chloride 93 mmol/L (96-108); Estimated Glomerular Filt Rate 56; Glucose Fasting 251 mg/dL (60-99); Sodium 138 mmol/L (135-145)
[2021-07-12 08:32] LABS: Digoxin 1.6 ng/mL (0.8-2.0)
== END 2021-07-12 06:34 | disposition home or self-care (01) ==
LOC: HO.HSH4W 06:33
PROVIDERS: Visit Provider Internal Medicine
DX: I48.91 Unspecified atrial fibrillation (principal); E11.9 Type 2 diabetes mellitus without complications; Z79.899 Other long term (current) drug therapy
CPT/HCPCS: 36415; 80048; 80162

== ENCOUNTER 2021-08-25 08:26 | Outpatient (REF) | payer OTHER, SELFPAY ==
[2021-08-25 11:34] LABS: Digoxin 1.8 ng/mL (0.8-2.0)
[2021-08-25 13:17] LABS: Anion Gap 15 (12-20); Carbon Dioxide 34 mmol/L (22-29); Chloride 92 mmol/L (96-108); Estimated Glomerular Filt Rate 54; Glucose Fasting 447 mg/dL (60-99); Potassium 4.9 mmol/L (3.3-5.1); Sodium 136 mmol/L (135-145)
[2021-08-25 15:33] LABS: Blood Urea Nitrogen 29 mg/dL (9-16); Calcium 8.8 mg/dL (8.4-10.2)
== END 2021-08-25 08:27 | disposition home or self-care (01) ==
LOC: HO.HSH4W 08:26
PROVIDERS: Visit Provider Internal Medicine
DX: I48.91 Unspecified atrial fibrillation (principal); I50.9 Heart failure, unspecified; Z79.899 Other long term (current) drug therapy
CPT/HCPCS: 36415; 80048; 80162

== ENCOUNTER 2021-09-13 12:57 | Outpatient (REF) | payer MEDICARE, SELFPAY ==
[2021-09-13 13:52] LABS: Anion Gap 21 (12-20); Blood Urea Nitrogen 22 mg/dL (9-16); Calcium 9.6 mg/dL (8.4-10.2); Carbon Dioxide 30 mmol/L (22-29); Chloride 92 mmol/L (96-108); Estimated Glomerular Filt Rate > 60; Glucose Random 266 mg/dL (60-115); Magnesium 1.9 mg/dL (1.6-2.6); Potassium 5.8 mmol/L (3.3-5.1); Sodium 137 mmol/L (135-145)
[2021-09-13 14:32] LABS: Digoxin 1.6 ng/mL (0.8-2.0)
== END 2021-09-13 12:58 | disposition home or self-care (01) ==
LOC: HO.HSH4W 12:57
PROVIDERS: Visit Provider Internal Medicine
DX: J44.9 Chronic obstructive pulmonary disease, unspecified (principal); I49.9 Cardiac arrhythmia, unspecified
CPT/HCPCS: 36415; 80048; 80162; 83735

== ENCOUNTER 2021-10-19 05:38 | Outpatient (REF) | payer OTHER, MEDICARE, SELFPAY ==
[2021-10-19 06:36] LABS: Anion Gap 12 (12-20); Blood Urea Nitrogen 36 mg/dL (9-16); Carbon Dioxide 39 mmol/L (22-29); Chloride 96 mmol/L (96-108); Estimated Glomerular Filt Rate 52; Potassium 5.7 mmol/L (3.3-5.1); Sodium 141 mmol/L (135-145)
== END 2021-10-19 05:39 | disposition home or self-care (01) ==
LOC: HO.HSH4W 05:38
PROVIDERS: Visit Provider Internal Medicine
DX: I50.9 Heart failure, unspecified (principal); N28.9 Disorder of kidney and ureter, unspecified; E87.5 Hyperkalemia
CPT/HCPCS: 36415; 80051; 82565; 84520